=== PATIENT | female | born 1985 | race Caucasian/White ===

== ENCOUNTER 2019-04-01 14:39 | Emergency (ER) | payer OTHER, MEDICAID, SELFPAY ==
--- NOTE | 2019-04-01 15:05 | ED.BACK ---
HPI - Back Pain/Injury General Chief Complaint: Abdominal Pain Stated Complaint: back pain, can't breathe Time Seen by Provider: 04/01/19 14:45 Source: patient and family Mode of arrival: ambulatory Limitations: no limitations History of Present Illness HPI Narrative: 33-year-old female nonsmoker presents with severe right lower quadrant pain and radiation to the right back. She denies any provocation or palliation. She admits to nausea but denies vomiting. She denies dysuria, frequency or urgency. She states she is not . She denies any injury. She states it comes and goes with the mind of itself Complaint: back pain Onset (ago): hour(s) Duration: intermittent Similar Symptoms Previously: No Location: right flank Severity: severe Quality: aching Radiation: groin Relieving factors: none Exacerbating factors: none Related Data Home Medications Medication Instructions Recorded Confirmed norgestimate-ethinyl estradiol 1 tab PO DAILY 04/01/19 04/01/19 [[place]] Previous Rx's Medication Instructions Recorded hydrocodone-acetaminophen 1 tab PO Q4-6H PRN #10 tab 04/01/19 ketorolac 10 mg PO Q6H PRN #14 tab 04/01/19 ondansetron 4 mg PO TID-QID PRN #10 tab 04/01/19 tamsulosin [Flomax] 0.4 mg PO DAILY #10 cap 04/01/19 Allergies Allergy/AdvReac Type Severity Reaction Status Date / Time Penicillin Allergy Unknown SWELLING Uncoded 12/13/17 11:56 WHOLE BODY. Review of Systems Constitutional Denies chills, Denies fever(s), Denies lethargy and Denies weakness Eyes Denies change in vision, Denies eye discharge, Denies irritation and Denies loss of vision ENT Ears, Nose, Mouth, and Throat: Denies change in voice, Denies neck pain and Denies sore throat Cardiovascular Denies chest pain, Denies irregular heart rhythm, Denies lightheadedness, Denies palpitations, Denies dyspnea, Denies dyspnea on exertion and Denies orthopnea Respiratory Denies cough, Denies dyspnea, Denies dyspnea on exertion and Denies wheezing Gastrointestinal Gastrointestinal: Denies abdominal pain, Denies change in bowel habits, Denies diarrhea, Denies nausea and Denies vomiting Genitourinary Denies hematuria, Reports flank pain, Denies urinary incontinence and Denies urinary urgency Musculoskeletal Denies neck pain Integumentary/Breasts Denies pruritus, Denies erythema, Denies rash and Denies wounds Neurologic Denies confusion, Denies loss of vision and Denies weakness Psychiatric Denies anxiety, Denies confusion, Denies depression, Denies homicidal ideation and Denies suicidal ideation Endocrine Denies palpitations Hematologic/Lymphatic Denies easy bruising Allergic/Immunologic Denies wheezing PFSH Social History Smoking Status: Never smoker Social History Smoking Status: Never smoker Exam Narrative Exam Narrative: GENERAL: 33-year-old female appears stated age, clearly uncomfortable and massaging her right flank, rocking back and forth HEAD: Atraumatic. Normocephalic. No temporal or scalp tenderness. EYES: Pupils equal round and reactive. Extraocular motions intact. No scleral icterus. No injection or drainage. ENT: Nose without bleeding, purulent drainage or septal hematoma. Throat without erythema, tonsillar hypertrophy or exudate. Uvula midline. Airway patent. NECK: Trachea midline. No JVD or lymphadenopathy. Supple, nontender, no meningeal signs. CARDIOVASCULAR: Regular rate and rhythm without murmurs, gallops, or rubs. RESPIRATORY: Clear to auscultation. Breath sounds equal bilaterally. No wheezes, rales, or rhonchi. GASTROINTESTINAL: Abdomen soft, non-tender, nondistended. No hepato-splenomegaly, or palpable masses. No guarding. EXTREMITIES: No clubbing, cyanosis, or edema. No joint tenderness, effusion, or edema noted. BACK: Nontender without deformity or crepitance. No flank tenderness. NEURO: AOx3. SKIN: No rash or erythema. Initial Vital Signs Initial Vital Signs: Vital Signs Temperature 98.3 F 04/01/19 15:07 Pulse Rate 77 04/01/19 15:07 Respiratory Rate 16 04/01/19 15:07 Blood Pressure 117/69 04/01/19 15:07 Pulse Oximetry 99 04/01/19 15:07 Course Orders Ordered: Discontinued Medications Sodium Chloride (Normal Saline 0.9%) 1,000 mls @ 1,000 mls/hr IV BOLUS ONE Stop: 04/01/19 16:09 Last Infusion: 04/01/19 16:19 Dose: 0 mls/hr Admin: 04/01/19 15:20 Dose: 1,000 mls/hr Ketorolac Tromethamine (Toradol) 15 mg IV NOW ONE Stop: 04/01/19 15:11 Last Admin: 04/01/19 15:19 Dose: 15 mg Ondansetron HCl (Zofran) 4 mg IV Q4HR PRN PRN Reason: Nausea And Vomiting Vital Signs - 8 hr 04/01/19 15:07 04/01/19 16:01 Temperature 98.3 F Pulse Rate 77 104 H Respiratory Rate 16 18 Blood Pressure 117/69 Blood Pressure [Right Arm] 123/70 Pulse Oximetry 99 98 MDM - Back Pain/Injury Lab Data Result diagrams: 04/01/19 15:10 04/01/19 15:10 Lab Results 04/01/19 04/01/19 04/01/19 Range/Units 15:00 15:10 15:10 WBC 7.0 (4.5-11.0) X10^3/uL RBC 4.15 (4.0-5.2) X10^6/uL Hgb 13.1 (12.0-16.0) g/dL Hct 39.3 (36-46) % MCV 94.6 (80-100) fL MCH 31.7 (26-34) PG MCHC 33.5 (30-36) % RDW 12.4 (11.6-14.8) % Plt Count 238 (150-400) X10^3/uL Neut % (Auto) 56.5 (50-75) % Lymph % (Auto) 35.2 (25-40) % [place] % (Auto) 7.3 (3-14) % Eos % (Auto) 0.8 L (2-4) % Baso % (Auto) 0.2 (0-2) % Neut # (Auto) 3900 (0671-5761) /uL Lymph # (Auto) 2500 (5711-7355) /uL [place] # (Auto) 500 (0-900) /uL Eos # (Auto) 100 (0-450) /uL Baso # (Auto) 0 (0-100) /uL PT 10.4 (10.1-12.7) SECONDS INR 0.9 (0.9-1.3) APTT 29 (26.4-36.2) SECONDS Sodium (137-145) mmol/L Potassium (3.4-5.1) mmol/L Chloride (98-107) mmol/L Carbon Dioxide (22-32) mmol/L BUN (7-17) mg/dL Creatinine (0.52-1.04) mg/dL Estimated GFR (>60) mL/min BUN/Creatinine Ratio (6-22) Glucose (70-100) mg/dL Calcium (8.4-10.2) mg/dL Total Bilirubin (0.2-1.3) mg/dL AST (14-36) IU/L ALT (9-52) IU/L Alkaline Phosphatase (38-126) U/L Total Protein (6.3-8.2) g/dL Albumin (3.5-5.0) g/dL Globulin (1.7-4.1) g/dL Albumin/Globulin Ratio (1.0-2.8) Lipase (23-300) U/L Urine RBC 30-100/hpf H (0-5/HPF) Urine WBC None seen (0-5/HPF) Ur Squamous Epith Cells 1-5 /hpf (0-5/HPF) Urine Bacteria None seen (None) Urine Mucus 3+ H (Negative) Ur Culture Indicated? Cult not indicated 04/01/19 Range/Units 15:10 WBC (4.5-11.0) X10^3/uL RBC (4.0-5.2) X10^6/uL Hgb (12.0-16.0) g/dL Hct (36-46) % MCV (80-100) fL MCH (26-34) PG MCHC (30-36) % RDW (11.6-14.8) % Plt Count (150-400) X10^3/uL Neut % (Auto) (50-75) % Lymph % (Auto) (25-40) % [place] % (Auto) (3-14) % Eos % (Auto) (2-4) % Baso % (Auto) (0-2) % Neut # (Auto) (0880-1753) /uL Lymph # (Auto) (8905-6494) /uL [place] # (Auto) (0-900) /uL Eos # (Auto) (0-450) /uL Baso # (Auto) (0-100) /uL PT (10.1-12.7) SECONDS INR (0.9-1.3) APTT (26.4-36.2) SECONDS Sodium 139 (137-145) mmol/L Potassium 3.7 (3.4-5.1) mmol/L Chloride 107 (98-107) mmol/L Carbon Dioxide 23 (22-32) mmol/L BUN 11 (7-17) mg/dL Creatinine 0.70 (0.52-1.04) mg/dL Estimated GFR > 60.0 (>60) mL/min BUN/Creatinine Ratio 15.7 (6-22) Glucose 92 (70-100) mg/dL Calcium 8.8 (8.4-10.2) mg/dL Total Bilirubin 0.6 (0.2-1.3) mg/dL AST 21 (14-36) IU/L ALT 12 (9-52) IU/L Alkaline Phosphatase 88 (38-126) U/L Total Protein 7.3 (6.3-8.2) g/dL Albumin 4.0 (3.5-5.0) g/dL Globulin 3.3 (1.7-4.1) g/dL Albumin/Globulin Ratio 1.2 (1.0-2.8) Lipase 47 (23-300) U/L Urine RBC (0-5/HPF) Urine WBC (0-5/HPF) Ur Squamous Epith Cells (0-5/HPF) Urine Bacteria (None) Urine Mucus (Negative) Ur Culture Indicated? Point of Care Testing Test Results Negative Urine Dip Bedside Urine Glucose Negative Bedside Urine Bilirubin + 1 Bedside Urine Ketone - Negative Urine Specific [place] 1.030 Bedside Urine Occult Blood +++ Bedside Urine pH 5.5 Bedside Urine Protein + 30 Bedside Urine Urobilinogen - Negative Bedside Urine Nitrite - Negative Bedside Urine Leukocytes - Negative Esterase MDM Narrative Medical decision making narrative: Severe sudden-onset right flank pain with radiation to the groin in the setting of hematuria. No fever or chills, no injury. CT does not show any obvious stone but possibly a passed stone. Patient has tremendous improvement with the above-stated therapies. She is not septic. She is in full agreement with the plan for discharge and followup. She has been given return precautions, understands those precautions as evidenced by her ability to verbalize them back to me and has had questions answered to their apparent satisfaction. Discharge Plan Departure Patient Disposition: Home Clinical Impression: Calculus of kidney Hematuria Qualifiers: Hematuria type: unspecified type Qualified Code(s): R31.9 - Hematuria, unspecified Discharge Date/Time: 04/01/19 16:20 Interventions: ED Discharge Assessment Last Done: 04/01/19 16:19 Instructions: DI for Flank Pain Activity Restrictions/Additional Instructions: *You have been diagnosed with [right flank pain with blood in her urine, likely a passed kidney stone] *What to do: *Take medications as directed *Follow up with your primary care provider in 2-3 days, call for an appointment. Let them know you were seen in the Emergency Department and that we ask that you be seen in follow up *Return to ER if you should have any new, worsening or concerning symptoms Prescriptions: New hydrocodone-acetaminophen 5-325 mg tablet 1 tab PO Q4-6H PRN (Reason: pain) Qty: 10 RF: 0 ketorolac 10 mg tablet 10 mg PO Q6H PRN (Reason: pain) Qty: 14 RF: 0 ondansetron 4 mg tablet,disintegrating 4 mg PO TID-QID PRN (Reason: nausea and vomiting) Qty: 10 RF: 0 tamsulosin [Flomax] 0.4 mg capsule 0.4 mg PO DAILY Qty: 10 RF: 0 No Action norgestimate-ethinyl estradiol [[place]] 0.25-35 mg-mcg tablet 1 tab PO DAILY RF: 0 Referrals: Shirley Zaldivar MD [Primary Care Provider] -
[2019-04-01 15:07] VITALS: BP 117/69; PULSE 77; RESP 16; TEMP 36.8; O2SAT 99
--- NOTE | 2019-04-01 15:10 | DI.CT.S_ITS ---
PROCEDURE: CT KIDNEY URETER BLADDER (KUB) INDICATIONS: A 33-year-old woman with severe right groin pain and right flank pain with hematuria. TECHNIQUE: Noncontrast 5 mm thick sections acquired from the diaphragms to the symphysis. 5 mm thick coronal and sagittal reformats were then performed. For radiation dose reduction, the following was used: automated exposure control, adjustment of mA and/or kV according to patient size. COMPARISON: None. FINDINGS: Image quality: Excellent. Lung bases: Lung bases are clear. Heart size is normal. Urinary system: Both kidneys are normal in size. No kidney stones. No hydronephrosis or perinephric fat stranding. Both ureters appear non-dilated throughout their expected courses. Bladder wall thickness is normal; no calcified bladder stones. Other solid organs: Liver is normal in size. Gallbladder is. Pancreas is normal in contours. Spleen is normal in size. No adrenal nodules. Peritoneum and bowel: Unenhanced bowel loops demonstrate normal wall thickness and caliber. Normal appendix No free fluid or air. Nodes and vessels: No retroperitoneal or mesenteric adenopathy by size criteria. Aorta and inferior vena cava are normal in caliber. Abdominal wall: No ventral hernias. Pelvis: No free pelvic fluid. No inguinal hernias or adenopathy. Uterus is normal. Bilateral adnexal cysts are most likely ovarian in origin. On the right side, the cyst measures 1.7 cm. On the right side, the cyst measures 2.1 cm. No pathological free fluid. Bones: No suspicious bony lesions. No vertebral body compression fractures. IMPRESSION: 1. No urinary stones or hydronephrosis. 2. Normal appendix. 3. A cause for right flank/groin pain and hematuria are not identified. 4. Bilateral ovarian cysts, probably dominant ovarian follicles. Dictated by: Miladis Tabares M.D. on 04/01/2019 at 15:52 Approved by: Miladis Tabares M.D. on 04/01/2019 at 16:05
--- NOTE | 2019-04-01 15:18 | ED_ITS ---
HPI - Back Pain/Injury General Chief Complaint: Abdominal Pain Stated Complaint: back pain, can't breathe Time Seen by Provider: 04/01/19 14:45 Source: patient and family Mode of arrival: ambulatory Limitations: no limitations History of Present Illness HPI Narrative: 33-year-old female nonsmoker presents with severe right lower quadrant pain and radiation to the right back. She denies any provocation or palliation. She admits to nausea but denies vomiting. She denies dysuria, frequency or urgency. She states she is not . She denies any injury. She states it comes and goes with the mind of itself Complaint: back pain Onset (ago): hour(s) Duration: intermittent Similar Symptoms Previously: No Location: right flank Severity: severe Quality: aching Radiation: groin Relieving factors: none Exacerbating factors: none Related Data Home Medications Medication Instructions Recorded Confirmed norgestimate-ethinyl estradiol 1 tab PO DAILY 04/01/19 04/01/19 [[place]] Previous Rx's Medication Instructions Recorded hydrocodone-acetaminophen 1 tab PO Q4-6H PRN #10 tab 04/01/19 ketorolac 10 mg PO Q6H PRN #14 tab 04/01/19 ondansetron 4 mg PO TID-QID PRN #10 tab 04/01/19 tamsulosin [Flomax] 0.4 mg PO DAILY #10 cap 04/01/19 Allergies Allergy/AdvReac Type Severity Reaction Status Date / Time Penicillin Allergy Unknown SWELLING Uncoded 12/13/17 11:56 WHOLE BODY. Review of Systems Constitutional Denies chills, Denies fever(s), Denies lethargy and Denies weakness Eyes Denies change in vision, Denies eye discharge, Denies irritation and Denies loss of vision ENT Ears, Nose, Mouth, and Throat: Denies change in voice, Denies neck pain and Denies sore throat Cardiovascular Denies chest pain, Denies irregular heart rhythm, Denies lightheadedness, Denies palpitations, Denies dyspnea, Denies dyspnea on exertion and Denies orthopnea Respiratory Denies cough, Denies dyspnea, Denies dyspnea on exertion and Denies wheezing Gastrointestinal Gastrointestinal: Denies abdominal pain, Denies change in bowel habits, Denies diarrhea, Denies nausea and Denies vomiting Genitourinary Denies hematuria, Reports flank pain, Denies urinary incontinence and Denies urinary urgency Musculoskeletal Denies neck pain Integumentary/Breasts Denies pruritus, Denies erythema, Denies rash and Denies wounds Neurologic Denies confusion, Denies loss of vision and Denies weakness Psychiatric Denies anxiety, Denies confusion, Denies depression, Denies homicidal ideation and Denies suicidal ideation Endocrine Denies palpitations Hematologic/Lymphatic Denies easy bruising Allergic/Immunologic Denies wheezing PFSH Social History Smoking Status: Never smoker Social History Smoking Status: Never smoker Exam Narrative Exam Narrative: GENERAL: 33-year-old female appears stated age, clearly uncomfortable and massaging her right flank, rocking back and forth HEAD: Atraumatic. Normocephalic. No temporal or scalp tenderness. EYES: Pupils equal round and reactive. Extraocular motions intact. No scleral icterus. No injection or drainage. ENT: Nose without bleeding, purulent drainage or septal hematoma. Throat without erythema, tonsillar hypertrophy or exudate. Uvula midline. Airway patent. NECK: Trachea midline. No JVD or lymphadenopathy. Supple, nontender, no meningeal signs. CARDIOVASCULAR: Regular rate and rhythm without murmurs, gallops, or rubs. RESPIRATORY: Clear to auscultation. Breath sounds equal bilaterally. No wheezes, rales, or rhonchi. GASTROINTESTINAL: Abdomen soft, non-tender, nondistended. No hepato- splenomegaly, or palpable masses. No guarding. EXTREMITIES: No clubbing, cyanosis, or edema. No joint tenderness, effusion, or edema noted. BACK: Nontender without deformity or crepitance. No flank tenderness. NEURO: AOx3. SKIN: No rash or erythema. Initial Vital Signs Initial Vital Signs: Vital Signs Temperature 98.3 F 04/01/19 15:07 Pulse Rate 77 04/01/19 15:07 Respiratory Rate 16 04/01/19 15:07 Blood Pressure 117/69 04/01/19 15:07 Pulse Oximetry 99 04/01/19 15:07 Course Orders Ordered: Discontinued Medications Sodium Chloride (Normal Saline 0.9%) 1,000 mls @ 1,000 mls/hr IV BOLUS ONE Stop: 04/01/19 16:09 Last Infusion: 04/01/19 16:19 Dose: 0 mls/hr Admin: 04/01/19 15:20 Dose: 1,000 mls/hr Ketorolac Tromethamine (Toradol) 15 mg IV NOW ONE Stop: 04/01/19 15:11 Last Admin: 04/01/19 15:19 Dose: 15 mg Ondansetron HCl (Zofran) 4 mg IV Q4HR PRN PRN Reason: Nausea And Vomiting Vital Signs - 8 hr 04/01/19 15:07 04/01/19 16:01 Temperature 98.3 F Pulse Rate 77 104 H Respiratory Rate 16 18 Blood Pressure 117/69 Blood Pressure [Right Arm] 123/70 Pulse Oximetry 99 98 MDM - Back Pain/Injury Lab Data Result diagrams: 04/01/19 15:10 04/01/19 15:10 Lab Results 04/01/19 04/01/19 04/01/19 Range/Units 15:00 15:10 15:10 WBC 7.0 (4.5-11.0) X10^3/uL RBC 4.15 (4.0-5.2) X10^6/uL Hgb 13.1 (12.0-16.0) g/dL Hct 39.3 (36-46) % MCV 94.6 (80-100) fL MCH 31.7 (26-34) PG MCHC 33.5 (30-36) % RDW 12.4 (11.6-14.8) % Plt Count 238 (150-400) X10^3/uL Neut % (Auto) 56.5 (50-75) % Lymph % (Auto) 35.2 (25-40) % [place] % (Auto) 7.3 (3-14) % Eos % (Auto) 0.8 L (2-4) % Baso % (Auto) 0.2 (0-2) % Neut # (Auto) 3900 (2949-7749) /uL Lymph # (Auto) 2500 (0232-8838) /uL [place] # (Auto) 500 (0-900) /uL Eos # (Auto) 100 (0-450) /uL Baso # (Auto) 0 (0-100) /uL PT 10.4 (10.1-12.7) SECONDS INR 0.9 (0.9-1.3) APTT 29 (26.4-36.2) SECONDS Sodium (137-145) mmol/L Potassium (3.4-5.1) mmol/L Chloride (98-107) mmol/L Carbon Dioxide (22-32) mmol/L BUN (7-17) mg/dL Creatinine (0.52-1.04) mg/dL Estimated GFR (>60) mL/min BUN/Creatinine Ratio (6-22) Glucose (70-100) mg/dL Calcium (8.4-10.2) mg/dL Total Bilirubin (0.2-1.3) mg/dL AST (14-36) IU/L ALT (9-52) IU/L Alkaline Phosphatase (38-126) U/L Total Protein (6.3-8.2) g/dL Albumin (3.5-5.0) g/dL Globulin (1.7-4.1) g/dL Albumin/Globulin Ratio (1.0-2.8) Lipase (23-300) U/L Urine RBC 30-100/hpf H (0-5/HPF) Urine WBC None seen (0-5/HPF) Ur Squamous Epith Cells 1-5 /hpf (0-5/HPF) Urine Bacteria None seen (None) Urine Mucus 3+ H (Negative) Ur Culture Indicated? Cult not indicated 04/01/19 Range/Units 15:10 WBC (4.5-11.0) X10^3/uL RBC (4.0-5.2) X10^6/uL Hgb (12.0-16.0) g/dL Hct (36-46) % MCV (80-100) fL MCH (26-34) PG MCHC (30-36) % RDW (11.6-14.8) % Plt Count (150-400) X10^3/uL Neut % (Auto) (50-75) % Lymph % (Auto) (25-40) % [place] % (Auto) (3-14) % Eos % (Auto) (2-4) % Baso % (Auto) (0-2) % Neut # (Auto) (3630-6043) /uL Lymph # (Auto) (8978-1287) /uL [place] # (Auto) (0-900) /uL Eos # (Auto) (0-450) /uL Baso # (Auto) (0-100) /uL PT (10.1-12.7) SECONDS INR (0.9-1.3) APTT (26.4-36.2) SECONDS Sodium 139 (137-145) mmol/L Potassium 3.7 (3.4-5.1) mmol/L Chloride 107 (98-107) mmol/L Carbon Dioxide 23 (22-32) mmol/L BUN 11 (7-17) mg/dL Creatinine 0.70 (0.52-1.04) mg/dL Estimated GFR > 60.0 (>60) mL/min BUN/Creatinine Ratio 15.7 (6-22) Glucose 92 (70-100) mg/dL Calcium 8.8 (8.4-10.2) mg/dL Total Bilirubin 0.6 (0.2-1.3) mg/dL AST 21 (14-36) IU/L ALT 12 (9-52) IU/L Alkaline Phosphatase 88 (38-126) U/L Total Protein 7.3 (6.3-8.2) g/dL Albumin 4.0 (3.5-5.0) g/dL Globulin 3.3 (1.7-4.1) g/dL Albumin/Globulin Ratio 1.2 (1.0-2.8) Lipase 47 (23-300) U/L Urine RBC (0-5/HPF) Urine WBC (0-5/HPF) Ur Squamous Epith Cells (0-5/HPF) Urine Bacteria (None) Urine Mucus (Negative) Ur Culture Indicated? Point of Care Testing Test Results Negative Urine Dip Bedside Urine Glucose Negative Bedside Urine Bilirubin + 1 Bedside Urine Ketone - Negative Urine Specific [place] 1.030 Bedside Urine Occult Blood +++ Bedside Urine pH 5.5 Bedside Urine Protein + 30 Bedside Urine Urobilinogen - Negative Bedside Urine Nitrite - Negative Bedside Urine Leukocytes - Negative Esterase MDM Narrative Medical decision making narrative: Severe sudden-onset right flank pain with radiation to the groin in the setting of hematuria. No fever or chills, no injury. CT does not show any obvious stone but possibly a passed stone. Patient has tremendous improvement with the above-stated therapies. She is not septic. She is in full agreement with the plan for discharge and followup. She has been given return precautions, understands those precautions as evidenced by her ability to verbalize them back to me and has had questions answered to their apparent satisfaction. Discharge Plan Departure Patient Disposition: Home Clinical Impression: Calculus of kidney Hematuria Qualifiers: Hematuria type: unspecified type Qualified Code(s): R31.9 - Hematuria, unspecified Discharge Date/Time: 04/01/19 16:20 Interventions: ED Discharge Assessment Last Done: 04/01/19 16:19 Instructions: DI for Flank Pain Activity Restrictions/Additional Instructions: *You have been diagnosed with [right flank pain with blood in her urine, likely a passed kidney stone] *What to do: *Take medications as directed *Follow up with your primary care provider in 2-3 days, call for an appointment. Let them know you were seen in the Emergency Department and that we ask that you be seen in follow up *Return to ER if you should have any new, worsening or concerning symptoms Prescriptions: New hydrocodone-acetaminophen 5-325 mg tablet 1 tab PO Q4-6H PRN (Reason: pain) Qty: 10 RF: 0 ketorolac 10 mg tablet 10 mg PO Q6H PRN (Reason: pain) Qty: 14 RF: 0 ondansetron 4 mg tablet,disintegrating 4 mg PO TID-QID PRN (Reason: nausea and vomiting) Qty: 10 RF: 0 tamsulosin [Flomax] 0.4 mg capsule 0.4 mg PO DAILY Qty: 10 RF: 0 No Action norgestimate-ethinyl estradiol [[place]-Liny[place]] 0.25-35 mg-mcg tablet 1 tab PO DAILY RF: 0 Referrals: Shirley Zaldivar MD [Primary Care Provider] -
[2019-04-01 15:19] LABS: Add Manual Diff / Slide Review NO; Basophils Absolute Auto 0 /uL (0-100); Basophils Percent Auto 0.2 % (0-2); Eosinophils Absolute Auto 100 /uL (0-450); Eosinophils Percent Auto 0.8 % (2-4); Hematocrit 39.3 % (36-46); Hemoglobin 13.1 g/dL (12.0-16.0); Lymphocytes Absolute Auto 2500 /uL (1100-4500); Lymphocytes Percent Auto 35.2 % (25-40); Mean Corpuscular HGB Conc 33.5 % (30-36); Mean Corpuscular Hemoglobin 31.7 PG (26-34); Mean Corpuscular Volume 94.6 fL (80-100); Monocytes Absolute Auto 500 /uL (0-900); Monocytes Percent Auto 7.3 % (3-14); Neutrophils Absolute Auto 3900 /uL (1500-7000); Neutrophils Percent Auto 56.5 % (50-75); Platelet Count 238 X10^3/uL (150-400); Red Blood Cell Count 4.15 X10^6/uL (4.0-5.2); Red Cell Distribution Width 12.4 % (11.6-14.8)
[2019-04-01 15:19] LABS: Bacteria Urine None Seen; WBC Urine None Seen (0-5/HPF)
[2019-04-01] MEDS: KETOROLAC 60 MG/2 ML VIAL 15 MG IV (15:19)
[2019-04-01] MEDS: SODIUM CHLORIDE 0.9% 1,000 ML 1000 ML IV (15:20)
[2019-04-01 15:27] LABS: INR 0.9 (0.9-1.3); Prothrombin Time 10.4 SECONDS (10.1-12.7)
[2019-04-01 15:30] LABS: PTT Partial Thromboplastin Tim 29 SECONDS (26.4-36.2)
[2019-04-01 15:31] LABS: Alanine Aminotransferase 12 IU/L (9-52); Albumin Globulin Ratio 1.2 (1.0-2.8); Alkaline Phosphatase 88 U/L (38-126); Aspartate Aminotransferase 21 IU/L (14-36); BUN Creatinine Ratio 15.7 (6-22); Bilirubin Total 0.6 mg/dL (0.2-1.3); Blood Urea Nitrogen 11 mg/dL (7-17); Calcium 8.8 mg/dL (8.4-10.2); Carbon Dioxide 23 mmol/L (22-32); Chloride 107 mmol/L (98-107); Estimated Glomerular Filt Rate > 60.0 mL/min (>60); Globulin 3.3 g/dL (1.7-4.1); Glucose 92 mg/dL (70-100); HEMOLYSIS < 15 (0-50); Lipase 47 U/L (23-300); Potassium 3.7 mmol/L (3.4-5.1); Sodium 139 mmol/L (137-145); Total Protein 7.3 g/dL (6.3-8.2)
[2019-04-01 15:53] LABS: RBC Urine 30-100/HPF (0-5/HPF)
[2019-04-01 15:54] LABS: Culture Indicated Urine Cult Not Indicated; Mucus Urine 3+ (Negative); Squamous Epithelial Cell Urine 1-5 /HPF (0-5/HPF)
[2019-04-01 16:01] VITALS: BP 123/70; PULSE 104; RESP 18; O2SAT 98
== END 2019-04-01 16:20 | disposition home or self-care (01) ==
PROVIDERS: Emergency Provider Emergency Medicine; PCP Family Medicine
DX: N20.0 Calculus of kidney (principal); R31.9 Hematuria, unspecified
CPT/HCPCS: 74176; 80053; 81003; 81015; 81025; 83690; 85025; 85610; 85730; 96361; 96374; 99283; 99284; J1885

== ENCOUNTER → 2019-11-05 16:33 | Outpatient (CLI) | payer OTHER, MEDICAID, SELFPAY ==
--- NOTE | 2019-11-05 | DI.RAD.S_ITS ---
PROCEDURE: XR ANKLE LT MIN 3V INDICATIONS: Left Ankle Pain TECHNIQUE: 3 views of the ankle were acquired. COMPARISON: [facility], , ANKLE 3 VIEWS RIGHT, 03/08/2017, 16:27. FINDINGS: Bones: No fractures or dislocations. Ankle mortise is normally aligned. No suspicious bony lesions. Soft tissues: No tibiotalar joint effusion. Achilles tendon appears normal. IMPRESSION: Negative examination as above. If the patient's pain or other symptoms persist, consider further evaluation with MRI Dictated by: Yuriy Gong M.D. on 11/05/2019 at 18:32 Approved by: Yuriy Gong M.D. on 11/05/2019 at 18:33
== END ==
PROVIDERS: PCP Family Medicine; Referring Provider Family Medicine; Visit Provider Family Medicine
DX: M25.572 Pain in left ankle and joints of left foot (principal)
CPT/HCPCS: 73610

== ENCOUNTER 2020-03-03 16:57 | Emergency (ER) | payer OTHER, MEDICAID, SELFPAY ==
[2020-03-03 16:59] VITALS: BP 144/68; PULSE 88; RESP 16; TEMP 36.7; O2SAT 100; BMI 24.7
--- NOTE | 2020-03-03 17:08 | DI.RAD.S_ITS ---
PROCEDURE: XR FINGER RT MIN 2V INDICATIONS: foreign body TECHNIQUE: AP hand, 2 views of the 4th finger(s) acquired. COMPARISON: None. FINDINGS: Bones: No fractures or dislocations. No suspicious bony lesions. Soft tissues: No suspicious soft tissue calcifications. Radiolucent foreign body within the 4th digit palmar aspect of the tuft. This protrudes from the skin. This does not protrude into the bone. IMPRESSION: 1. Radiolucent foreign body within the 4th digit palmar tuft. 2. No fracture or dislocation. Dictated by: Louie Red M.D. on 03/03/2020 at 17:48 Approved by: Louie Red M.D. on 03/03/2020 at 17:50
--- NOTE | 2020-03-03 17:14 | ED_ITS ---
HPI - Wound/Laceration <BURAK Shrestha - Last Filed: 03/03/20 20:23> General Chief Complaint: Wound/Laceration Stated Complaint: Large splinter in finger Time Seen by Provider: 03/03/20 17:03 Source: patient Mode of arrival: Ambulatory Limitations: no limitations History of Present Illness HPI narrative: The patient is a 34-year-old female nonsmoker with history of right ankle injury presents with a chief complaint of a large splinter in her finger. 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 She states she was cleaning and dirty floor and had a huge splinter enter the 4th digit of her right hand. She is not sure when her last tetanus was. Range of motion, tried to pull out the splinter from the bottom and broke off inside of her finger. Related Data Home Medications Medication Instructions Recorded Confirmed norgestimate-ethinyl estradiol 1 tab PO DAILY 04/01/19 04/01/19 [[place]] Previous Rx's Medication Instructions Recorded hydrocodone-acetaminophen 1 tab PO Q4-6H PRN #10 tab 04/01/19 ketorolac 10 mg PO Q6H PRN #14 tab 04/01/19 ondansetron 4 mg PO TID-QID PRN #10 tab 04/01/19 tamsulosin [Flomax] 0.4 mg PO DAILY #10 cap 04/01/19 cephalexin 500 mg PO TID 7 Days #21 cap 03/03/20 Allergies Allergy/AdvReac Type Severity Reaction Status Date / Time Penicillin Allergy Unknown SWELLING Uncoded 03/03/20 17:01 WHOLE BODY. Review of Systems <BURAK Shrestha - Last Filed: 03/03/20 20:23> Review of Systems Narrative: GENERAL: Denies chills, fatigue, malaise, fever, sweats. HEENT: Denies sinus pain, ear pain, sore throat, difficulty swallowing, dizziness. RESPIRATORY: Denies dyspnea, cough, wheezing, hemoptysis, sputum. CARDIOVASCULAR: Denies chest pain, palpitations, orthopnea, edema, GASTROINTESTINAL: Denies nausea, vomiting, abdominal pain, diarrhea, constipation, melena. : Denies dysuria, frequency, incontinence, hematuria, urinary retention. MUSCULOSKELETAL: See HPI SKIN: See HPI NEUROLOGIC: Denies weakness, headache, numbness, change in speech, confusion, seizures, incoordination. PSYCHIATRIC: No concerning psychosocial issues. 12 point review of systems is negative except for those stated above Patient History <BURAK Shrestha - Last Filed: 03/03/20 20:23> Social History Smoking Status: Never smoker Smoking Status: Never smoker alcohol intake frequency: a few times a month Substance Use Type: marijuana Exam <BURAK Shrestha - Last Filed: 03/03/20 20:23> Narrative Exam Narrative: GENERAL: This is a well-nourished, well-developed patient, no acute distress HEAD: Atraumatic. Normocephalic. No temporal or scalp tenderness. EYES: Pupils equal round and reactive. Extraocular motions intact. No scleral icterus. No injection or drainage. ENT: Nose without bleeding, purulent drainage or septal hematoma. Airway patent. NECK: Trachea midline. No JVD or lymphadenopathy. Supple, nontender, no meningeal signs. CARDIOVASCULAR: Regular rate and rhythm RESPIRATORY: No cough. No increased respiratory effort. No accessory muscle use EXTREMITIES: Right hand, 4th digit with large splinter extending through palmar aspect of tuft, appears to be splinter, not visible on distal aspect, extending approximately 1.5 cm beyond finger tip. BACK: Nontender without deformity or crepitance. No flank tenderness. NEURO: AOx3. SKIN: See extremity exam Initial Vital Signs Initial Vital Signs: Vital Signs Temperature 98.1 F 03/03/20 16:59 Pulse Rate 88 03/03/20 16:59 Respiratory Rate 16 03/03/20 16:59 Blood Pressure 144/68 H 03/03/20 16:59 Pulse Oximetry 100 03/03/20 16:59 <Preethi Balderrama DO - Last Filed: 03/04/20 13:26> Initial Vital Signs Initial Vital Signs: Vital Signs Temperature 98.1 F 03/03/20 16:59 Pulse Rate 88 03/03/20 16:59 Respiratory Rate 16 03/03/20 16:59 Blood Pressure 144/68 H 03/03/20 16:59 Pulse Oximetry 100 03/03/20 16:59 Procedures <BURAK Shrestha - Last Filed: 03/03/20 20:23> Foreign Body OTHER Time Out Performed: yes Site: hand (Fourth digit, right hand) Description of foreign body: other (3 cm splinter) Technique: removal with forceps Confirmed by:: direct visualization Complications: none Post-procedure exam: awake, alert Nerve Block Nerve Block 1: Local Anesthetic: lidocaine 1% and with bicarb Amount of anesthesia used (mL): 5 Side: right Nerve Blocks: digital (Fourth digit ) Procedure Successful: Yes Patient Tolerated Procedure: Well Complications: none Course <BURAK Shrestha - Last Filed: 03/03/20 20:23> Orders Ordered: Discontinued Medications Diphtheria/Tetanus/Acell Pertussis (Adacel) 0.5 ml IM .ONCE ONE Stop: 03/03/20 17:09 Last Admin: 03/03/20 17:29 Dose: 0.5 ml Documented by: BERTA Lidocaine/Sodium Bicarbonate (Buffered Lidocaine 10 Ml Syr) 10 ml INJ NOW ONE Stop: 03/03/20 17:09 Last Admin: 03/03/20 17:29 Dose: 10 ml Documented by: BERTA Vital Signs Vital signs: Vital Signs - 8 hr 03/03/20 16:59 03/03/20 19:27 Temperature 98.1 F Pulse Rate 88 78 Respiratory Rate 16 16 Blood Pressure 144/68 H 110/70 Pulse Oximetry 100 100 <Preethi Balderrama DO - Last Filed: 03/04/20 13:26> Orders Ordered: Discontinued Medications Diphtheria/Tetanus/Acell Pertussis (Adacel) 0.5 ml IM .ONCE ONE Stop: 03/03/20 17:09 Last Admin: 03/03/20 17:29 Dose: 0.5 ml Documented by: BERTA Lidocaine/Sodium Bicarbonate (Buffered Lidocaine 10 Ml Syr) 10 ml INJ NOW ONE Stop: 03/03/20 17:09 Last Admin: 03/03/20 17:29 Dose: 10 ml Documented by: BERTA Vital Signs Vital signs: Vital Signs - 8 hr 03/03/20 16:59 03/03/20 19:27 Temperature 98.1 F Pulse Rate 88 78 Respiratory Rate 16 16 Blood Pressure 144/68 H 110/70 Pulse Oximetry 100 100 MDM - Wound/Laceration <BURAK Shrestha - Last Filed: 03/03/20 20:23> Imaging Data Extremity x-ray #1: Radiologist's Impression: [address] [place] [id number] XRay Report Signed Patient: Coleen Garza [facility]#: [id number] : 1985Acct:[id number] Age/Sex: 34 / FDate of Service: 03/03/20 Loc: ED Accession Number: [id number] Procedure: XR finger RT min 2V Ordering Provider: Padmini Allen-ZHENG PROCEDURE: XR FINGER RT MIN 2V INDICATIONS: foreign body TECHNIQUE: AP hand, 2 views of the 4th finger(s) acquired. COMPARISON: None. FINDINGS: Bones: No fractures or dislocations. No suspicious bony lesions. Soft tissues: No suspicious soft tissue calcifications. Radiolucent foreign body within the 4th digit palmar aspect of the tuft. This protrudes from the skin. This does not protrude into the bone. IMPRESSION: 1. Radiolucent foreign body within the 4th digit palmar tuft. 2. No fracture or dislocation. Dictated by: Louie Red M.D. on 03/03/2020 at 17:48 Approved by: Louie Red M.D. on 03/03/2020 at 17:50 [facility] Narrative Medical decision making narrative: The patient is a 34-year-old female who presents with a chief complaint of a large splinter in her hand. X-ray indicates no bony involvement. Her tetanus is updated, splinter was removed and tolerated well. Cleansed copiously with Hibiclens. Given the depth of the wound, contamination of surface that she was cleaning, we did place her on Keflex. I discussed at length taking a probiotic, monitoring for signs and symptoms of infection. The wound is copiously cleansed throughout her stay in the emergency department by soaking in Hibiclens. I did offer repeat x-ray, patient declined at this point. Encourage PCP follow-up in the next few days. Patient has no questions or concerns upon discharge and states understanding return precautions as well as follow-up care. She expresses great appreciation for her stay in the emergency department today. Discharge Plan Departure Patient Disposition: Home Clinical Impression: Splinter Discharge Date/Time: 03/03/20 19:28 Instructions: DI for Puncture Wound, DI for Splinter Removal Activity Restrictions/Additional Instructions: Thank you for trusting us with your care today. Today removed a large splinter from her finger. Given the depth, the dirt exposure etcetera we have placed you on antibiotics. I sent a prescription of cephalexin to [facility]. Please take this 3 times a day. Please take with probiotic or yogurt. Please monitor for signs of worsening infection such as increased redness, drainage etcetera Please follow-up with primary care provider Please come back to emergency department for any acute concerns Prescriptions: New cephalexin 500 mg capsule 500 mg PO TID 7 Days Qty: 21 RF: 0 No Action norgestimate-ethinyl estradiol [[place]] 0.25-35 mg-mcg tablet 1 tab PO DAILY RF: 0 hydrocodone-acetaminophen 5-325 mg tablet 1 tab PO Q4-6H PRN (Reason: pain) Qty: 10 RF: 0 ketorolac 10 mg tablet 10 mg PO Q6H PRN (Reason: pain) Qty: 14 RF: 0 ondansetron 4 mg tablet,disintegrating 4 mg PO TID-QID PRN (Reason: nausea and vomiting) Qty: 10 RF: 0 tamsulosin [Flomax] 0.4 mg capsule 0.4 mg PO DAILY Qty: 10 RF: 0 Referrals: Shirley Zaldivar MD [Primary Care Provider] - <Preethi Balderrama DO - Last Filed: 03/04/20 13:26> [facility] ED Attending Adamature Attestation: I was immediately available in the department for consultation. Documentation has been reviewed. I agree with assessment and plan.
[2020-03-03] MEDS: LIDO 1%/SOD BICARB 8.4% (10ML) 10 ML SYRINGE INJ (17:29)
[2020-03-03] MEDS: TET,DIPH,PERTUSS(ACELL),VAC/PF 0.5 ML SYRINGE IM (17:29)
[2020-03-03 19:27] VITALS: BP 110/70; PULSE 78; RESP 16; O2SAT 100
== END 2020-03-03 19:28 | disposition home or self-care (01) ==
PROVIDERS: Emergency Provider Nurse Practitioner Family; PCP Family Medicine
DX: S60.454A Superficial foreign body of right ring finger, initial encounter (principal); Z23 Encounter for immunization
CPT/HCPCS: 10120; 64450; 73140; 90471; 99283; 90715

== ENCOUNTER 2020-10-16 12:40 | Emergency (ER) | payer OTHER, MEDICAID, SELFPAY ==
[2020-10-16 12:42] VITALS: BP 141/92; PULSE 93; RESP 14; TEMP 37.1; O2SAT 98; BMI 26.5
--- NOTE | 2020-10-16 12:51 | ED_ITS ---
HPI - Abdominal Pain <GORDON Cabezas - Last Filed: 10/16/20 15:43> General Chief Complaint: Abdominal Pain Stated Complaint: Snowboard wreck week ago, lwr left abdominal pain Time Seen by Provider: 10/16/20 12:42 Source: patient Mode of arrival: Ambulatory Limitations: no limitations History of Present Illness HPI narrative: 34yo female presents to the ED for LLQ abdominal pain for the past week after a fall. Patient states she was snowboarding and fell and landed on her back. She immediately felt left lower quadrant pain, she was able to get up and continue snowboarding that day with some soreness. She states the soreness has came and went for the past week. She was snowboarding again few days ago and noticed it was getting worse. This morning she woke up from a startle and noticed a sharp stabbing lower left quadrant pain that is worse. Patient denies any fevers, chills, nausea, vomiting, chest pain, shortness of breath, blood in urine, or any other concerns. Related Data Home Medications Medication Instructions Recorded Confirmed norgestimate-ethinyl estradiol 1 tab PO DAILY 04/01/19 04/01/19 [[place]] Allergies Allergy/AdvReac Type Severity Reaction Status Date / Time Penicillins Allergy Verified 10/16/20 12:48 Review of Systems <GORDON Cabezas - Last Filed: 10/16/20 15:43> Review of Systems Narrative: REVIEW OF SYSTEMS: GENERAL: Denies fever. HENT: No head trauma. CARDIOVASCULAR: No chest pain. RESPIRATORY: No shortness of breath or cough. GASTROINTESTINAL: Complains of LLQ abdominal pain, see HPI GENITOURINARY: No flank pain. MUSCULOSKELETAL: No pain, weakness, or trauma. INTEGUMENTARY: No rash, lesions, or pruritus. NEURO: No numbness or tingling Patient History <GORDON Cabezas - Last Filed: 10/16/20 15:43> Medical History No significant medical problems Social History Smoking Status: Never smoker Smoking Status: Never smoker alcohol intake frequency: a few times a month Substance Use Type: marijuana Exam <GORDON Cabezas - Last Filed: 10/16/20 15:43> Initial Vital Signs Initial Vital Signs: Vital Signs Temperature 98.7 F 10/16/20 12:42 Pulse Rate 93 H 10/16/20 12:42 Respiratory Rate 14 10/16/20 12:42 Blood Pressure 141/92 H 10/16/20 12:42 Pulse Oximetry 98 10/16/20 12:42 PHYSICAL EXAMINATION: GENERAL: Awake and alert. HENT: Normocephalic, atraumatic. EYES: Conjunctiva pink, sclera white, no periorbital swelling. CARDIOVASCULAR: S1 and S2 sounds normal. Regular rate and rhythm, no murmurs, clicks, or bruits. No pedal edema. RESPIRATORY: Normal respiratory rate, trachea midline, airway patent. No stridor, nasal flaring or accessory muscle use. Lungs are clear in all quinn without wheeze, rhonchi, or crackles. GASTROINTESTINAL: Bowel sounds normoactive. Abdomen is soft, left lower quadrant tenderness. No organomegaly, no palpable masses. GENITALURINARY: Left CVA tenderness with palpable. MUSCULOSKELETAL: Normal gait and coordination. Equal tone and mass bilaterally. EXTREMITIES: CMS intact, no pedal edema. SKIN: Warm, dry, soft, appropriate color for ethnicity. No lesions, rashes, or wounds to visualized areas. NEURO: Alert and Oriented X 3. Good coordination. No ataxia, or sensory deficits, or cognitive issues. PSYCH: Appropriate affect and mood. <Edilson Lopez DO - Last Filed: 10/17/20 07:11> Initial Vital Signs Initial Vital Signs: Vital Signs Temperature 98.7 F 10/16/20 12:42 Pulse Rate 93 H 10/16/20 12:42 Respiratory Rate 14 10/16/20 12:42 Blood Pressure 141/92 H 10/16/20 12:42 Pulse Oximetry 98 10/16/20 12:42 Course <GORDON Cabezas - Last Filed: 10/16/20 15:43> Course Course Narrative: Patient reported Toradol improved pain. Orders Ordered: Discontinued Medications Sodium Chloride (Normal Saline 0.9%) 1,000 mls @ 1,000 mls/hr IV BOLUS ONE Stop: 10/16/20 13:50 Last Infusion: 10/16/20 14:25 Dose: 0 mls/hr Documented by: Admin: 10/16/20 13:09 Dose: 1,000 mls/hr Documented by: FRANNY Ketorolac Tromethamine (Ketorolac 60 Mg/2 Ml Vial) 30 mg IV NOW ONE Stop: 10/16/20 12:52 Last Admin: 10/16/20 13:08 Dose: 30 mg Documented by: FRANNY Vital Signs Vital signs: Vital Signs - 8 hr 10/16/20 12:42 10/16/20 14:13 Temperature 98.7 F Pulse Rate 93 H 73 Respiratory Rate 14 Blood Pressure 141/92 H 107/56 L Pulse Oximetry 98 98 <Edilson Lopez DO - Last Filed: 10/17/20 07:11> Orders Ordered: Discontinued Medications Sodium Chloride (Normal Saline 0.9%) 1,000 mls @ 1,000 mls/hr IV BOLUS ONE Stop: 10/16/20 13:50 Last Infusion: 10/16/20 14:25 Dose: 0 mls/hr Documented by: Admin: 10/16/20 13:09 Dose: 1,000 mls/hr Documented by: FRANNY Ketorolac Tromethamine (Ketorolac 60 Mg/2 Ml Vial) 30 mg IV NOW ONE Stop: 10/16/20 12:52 Last Admin: 10/16/20 13:08 Dose: 30 mg Documented by: FRANNY Vital Signs Vital signs: Vital Signs - 8 hr 10/16/20 12:42 10/16/20 14:13 Temperature 98.7 F Pulse Rate 93 H 73 Respiratory Rate 14 Blood Pressure 141/92 H 107/56 L Pulse Oximetry 98 98 MDM - Abdominal Pain <GORDON Cabezas - Last Filed: 10/16/20 15:43> Medical Records Attestation: I reviewed the patient's medical records. Lab Data Attestation: I reviewed the patient's lab results. Result diagrams: 10/16/20 13:00 10/16/20 13:00 Labs: Lab Results 10/16/20 10/16/20 10/16/20 Range/Units 13:00 13:00 13:30 WBC 7.3 (4.5-11.0) X10^3/uL RBC 4.10 (4.0-5.2) X10^6/uL Hgb 12.7 (12.0-16.0) g/dL Hct 38.5 (36-46) % MCV 93.8 (80-100) fL MCH 31.0 (26-34) PG MCHC 33.0 (30-36) % RDW 12.2 (11.6-14.8) % Plt Count 208 (150-400) X10^3/uL Neut % (Auto) 58.9 (50-75) % Lymph % (Auto) 34.8 (25-40) % [place] % (Auto) 5.2 (3-14) % Eos % (Auto) 0.7 L (2-4) % Baso % (Auto) 0.4 (0-2) % Neut # (Auto) 4300 (5219-3622) /uL Lymph # (Auto) 2500 (6106-2768) /uL [place] # (Auto) 400 (0-900) /uL Eos # (Auto) 100 (0-450) /uL Baso # (Auto) 0 (0-100) /uL Sodium 136 L (137-145) mmol/L Potassium 3.6 (3.4-5.1) mmol/L Chloride 109 H (98-107) mmol/L Carbon Dioxide 25 (22-32) mmol/L BUN 12 (7-17) mg/dL Creatinine 0.57 (0.52-1.04) mg/dL Estimated GFR > 60.0 (>60) mL/min BUN/Creatinine Ratio 21.1 (6-22) Glucose 105 H (70-100) mg/dL Calcium 8.9 (8.4-10.2) mg/dL Total Bilirubin 0.2 (0.2-1.3) mg/dL AST 26 (14-36) IU/L ALT 14 (<35) IU/L Alkaline Phosphatase 82 (38-126) U/L Total Protein 7.1 (6.3-8.2) g/dL Albumin 4.0 (3.5-5.0) g/dL Globulin 3.1 (1.7-4.1) g/dL Albumin/Globulin Ratio 1.3 (1.0-2.8) Urine RBC None seen (0-5/HPF) Urine WBC 1-5/hpf (0-5/HPF) Ur Squamous Epith Cells 5-10 /hpf H (0-5/HPF) Urine Bacteria None seen (None) Ur Culture Indicated? Cult not indicated Point of care testing: Point of Care Testing Test Results Negative Urine Dip Bedside Urine Glucose Negative Bedside Urine Bilirubin - Negative Bedside Urine Ketone - Negative Urine Specific [place] 1.030 Bedside Urine Occult Blood ++ Bedside Urine pH 6.0 Bedside Urine Protein - Negative Bedside Urine Urobilinogen - Negative Bedside Urine Nitrite - Negative Bedside Urine Leukocytes - Negative Esterase Imaging Data CT scan - abdomen/pelvis: Radiologist's Impression: [address] [id number] Scan ReportSigned Patient: Coleen Alves [facility]#: [id number]: 1985Acct:[id number]/Sex: 34 / FDate of Service: 10/16/20Loc: EDAccession Number: [id number] Procedure: CT abdomen pelvis w con Ordering Provider: Lucy Juarez PROCEDURE: CT ABDOMEN PELVIS W CON INDICATIONS: LLQ and L flank pain post back trauma. TECHNIQUE: After the administration of intravenous contrast, 5 mm thick sections acquired from the diaphragm to the symphysis. 5 mm coronal and sagittal reformats were acquired. For radiation dose reduction, the following was used: automated exposure control, adjustment of mA and/or kV according to patient size. COMPARISON: [facility], CT, CT KIDNEY URETER BLADDER (KUB), 04/01/2019, 15:27. FINDINGS: Image quality: Excellent. ABDOMEN: Lung bases: Lung bases are clear. Heart size is normal. Tiny hiatal hernia. Solid organs: Liver is normal in size and enhancement. Gallbladder is normal. Biliary system is non dilated. Pancreas enhances normally. Spleen is normal in size and enhancement. No adrenal nodules. Kidneys demonstrate normal size and enhancement, without hydronephrosis. Peritoneum and bowel: Bowel loops demonstrate normal wall thickness and caliber. Normal appendix. Moderate to large amount of stool in colon. No free fluid or air. Nodes and vessels: No retroperitoneal or mesenteric adenopathy by size cr iteria. Aorta and inferior vena cava are normal in size. Miscellaneous: No ventral hernias. PELVIS: Genitourinary: Bladder wall thickness is normal. There is a 1.6 cm rim enhancing cyst in the left ovary, probably a corpus luteal cyst. Uterus and right ovaries are normal. Trace free fluid in pelvis is likely within physiological limits. Miscellaneous: No inguinal hernias or adenopathy. Bones: No suspicious bony lesions. There is mild chronic anterior wedge deformity of T11. IMPRESSION: 1. No traumatic injuries identified in abdomen or pelvis. 2. A 1.6 cm corpus luteal cyst in the left ovary. Dictated by: Miladis Tabares M.D. on 10/16/2020 at 14:24 Approved by: Miladis Tabares M.D. on 10/16/2020 at 14:32 MDM Narrative Medical decision making narrative: 34-year-old female presents to the emergency department for left abdominal and flank pain after a fall while snowboarding. I suspect this is most likely musculoskeletal. However, on initial presentation, there was concern for internal injury given significant tenderness, prolonged duration of symptoms, and blood in urine. Abd CT ordered due to trauma, blood in urine, and CVA/ABD tenderness on exam especially prolonged pain x 1 week. Less likely traumatic injury to kidneys and bowel due to lack of findings on CT, microscopic urinalysis negative for blood in urine despite POC with RBC's present. Less likely renal calculi due to lack of findings on CT, no history of renal calculi. Less likely acute abdominal infection due to lack of findings on CT, patient is afebrile, hemodynamically stable, and there is no other concerning symptoms such as vomiting or diarrhea. It is possible that patient's cyst found on CT may also contribute to pain however, most likely musculoskeletal specially as it is made worse during positi on change. Patient was encouraged to take NSAIDs over the next week, she was encouraged to follow up with PCP to discuss further evaluation and/or physical therapy, if symptoms continue. Patient is hemodynamically stable, no distress upon discharge. Return precautions given for new or worsening symptoms. She agreed to plan of care verbalized understanding. <Edilson Lopez, DO - Last Filed: 10/17/20 07:11> Lab Data Labs: Lab Results 10/16/20 10/16/20 10/16/20 Range/Units 13:00 13:00 13:30 WBC 7.3 (4.5-11.0) X10^3/uL RBC 4.10 (4.0-5.2) X10^6/uL Hgb 12.7 (12.0-16.0) g/dL Hct 38.5 (36-46) % MCV 93.8 (80-100) fL MCH 31.0 (26-34) PG MCHC 33.0 (30-36) % RDW 12.2 (11.6-14.8) % Plt Count 208 (150-400) X10^3/uL Neut % (Auto) 58.9 (50-75) % Lymph % (Auto) 34.8 (25-40) % [place] % (Auto) 5.2 (3-14) % Eos % (Auto) 0.7 L (2-4) % Baso % (Auto) 0.4 (0-2) % Neut # (Auto) 4300 (1009-1087) /uL Lymph # (Auto) 2500 (9270-0807) /uL [place] # (Auto) 400 (0-900) /uL Eos # (Auto) 100 (0-450) /uL Baso # (Auto) 0 (0-100) /uL Sodium 136 L (137-145) mmol/L Potassium 3.6 (3.4-5.1) mmol/L Chloride 109 H (98-107) mmol/L Carbon Dioxide 25 (22-32) mmol/L BUN 12 (7-17) mg/dL Creatinine 0.57 (0.52-1.04) mg/dL Estimated GFR > 60.0 (>60) mL/min BUN/Creatinine Ratio 21.1 (6-22) Glucose 105 H (70-100) mg/dL Calcium 8.9 (8.4-10.2) mg/dL Total Bilirubin 0.2 (0.2-1.3) mg/dL AST 26 (14-36) IU/L ALT 14 (<35) IU/L Alkaline Phosphatase 82 (38-126) U/L Total Protein 7.1 (6.3-8.2) g/dL Albumin 4.0 (3.5-5.0) g/dL Globulin 3.1 (1.7-4.1) g/dL Albumin/Globulin Ratio 1.3 (1.0-2.8) Urine RBC None seen (0-5/HPF) Urine WBC 1-5/hpf (0-5/HPF) Ur Squamous Epith Cells 5-10 /hpf H (0-5/HPF) Urine Bacteria None seen (None) Ur Culture Indicated? Cult not indicated Point of care testing: Point of Care Testing Test Results Negative Urine Dip Bedside Urine Glucose Negative Bedside Urine Bilirubin - Negative Bedside Urine Ketone - Negative Urine Specific [place] 1.030 Bedside Urine Occult Blood ++ Bedside Urine pH 6.0 Bedside Urine Protein - Negative Bedside Urine Urobilinogen - Negative Bedside Urine Nitrite - Negative Bedside Urine Leukocytes - Negative Esterase Discharge Plan Departure Patient Disposition: Home Clinical Impression: Abdominal muscle strain Qualifiers: Encounter type: initial encounter Qualified Code(s): S39.011A - Strain of muscle, fascia and tendon of abdomen, initial encounter Instructions: DI for Abdominal Muscle Strain Activity Restrictions/Additional Instructions: Thank you for entrusting me with your care today. As discussed, your laboratory work, urine, and CT are negative for any concerning findings. There was an incidental finding of a left ovarian cyst which may be contributing to your pain. However, I suspect your pain is most likely contributed to an abdominal muscle strain. I suggest doing gentle stretches and rolling to the side before getting up from a lying position. Avoid activities that cause pain. Take naproxen or ibuprofen as needed for pain. Follow-up with your primary care provider in the next 1-2 weeks for further evaluation if symptoms continue. Return emergency department for any new or worsening symptoms such as severe pain, high fevers, uncontrollable vomiting, or any other concerns. Prescriptions: No Action norgestimate-ethinyl estradiol [[place]] 0.25-35 mg-mcg tablet 1 tab PO DAILY RF: 0 <Edilson Lopez DO - Last Filed: 10/17/20 07:11> [facility] Attestation: I was immediately available in the department for consultation. This documentation has been reviewed and I agree with assessment and plan. Supervised by Edilson Lopez DO
[2020-10-16] MEDS: KETOROLAC 60 MG/2 ML VIAL 30 MG IV (13:08)
[2020-10-16] MEDS: SODIUM CHLORIDE 0.9% 1,000 ML 1000 ML IV (13:09)
[2020-10-16 13:11] LABS: Add Manual Diff / Slide Review NO; Basophils Absolute Auto 0 /uL (0-100); Basophils Percent Auto 0.4 % (0-2); Eosinophils Absolute Auto 100 /uL (0-450); Eosinophils Percent Auto 0.7 % (2-4); Hematocrit 38.5 % (36-46); Hemoglobin 12.7 g/dL (12.0-16.0); Lymphocytes Absolute Auto 2500 /uL (1100-4500); Lymphocytes Percent Auto 34.8 % (25-40); Mean Corpuscular Volume 93.8 fL (80-100); Monocytes Absolute Auto 400 /uL (0-900); Monocytes Percent Auto 5.2 % (3-14); Neutrophils Absolute Auto 4300 /uL (1500-7000); Neutrophils Percent Auto 58.9 % (50-75); Platelet Count 208 X10^3/uL (150-400); Red Cell Distribution Width 12.2 % (11.6-14.8); White Blood Cell Count 7.3 X10^3/uL (4.5-11.0)
[2020-10-16 13:20] LABS: Alanine Aminotransferase 14 IU/L (<35); Albumin Globulin Ratio 1.3 (1.0-2.8); Alkaline Phosphatase 82 U/L (38-126); Aspartate Aminotransferase 26 IU/L (14-36); BUN Creatinine Ratio 21.1 (6-22); Bilirubin Total 0.2 mg/dL (0.2-1.3); Blood Urea Nitrogen 12 mg/dL (7-17); Calcium 8.9 mg/dL (8.4-10.2); Carbon Dioxide 25 mmol/L (22-32); Chloride 109 mmol/L (98-107); Estimated Glomerular Filt Rate > 60.0 mL/min (>60); Globulin 3.1 g/dL (1.7-4.1); Glucose 105 mg/dL (70-100); HEMOLYSIS < 15 (0-50); Potassium 3.6 mmol/L (3.4-5.1); Sodium 136 mmol/L (137-145); Total Protein 7.1 g/dL (6.3-8.2)
[2020-10-16 13:46] LABS: Bacteria Urine None Seen; RBC Urine None Seen (0-5/HPF)
[2020-10-16 13:58] LABS: Culture Indicated Urine Cult Not Indicated; Squamous Epithelial Cell Urine 5-10 /HPF (0-5/HPF); WBC Urine 1-5/HPF (0-5/HPF)
[2020-10-16 14:13] VITALS: BP 107/56; PULSE 73; O2SAT 98
== END 2020-10-16 15:02 | disposition home or self-care (01) ==
PROVIDERS: Emergency Provider Nurse Practitioner
DX: S39.011A Strain of muscle, fascia and tendon of abdomen, initial encounter (principal); V00.311A Fall from snowboard, initial encounter
CPT/HCPCS: 36415; 74177; 80053; 81003; 81015; 81025; 85025; 96361; 96374; 99283; 99284; J1885

== ENCOUNTER 2020-12-26 16:52 | Emergency (ER) | payer OTHER, MEDICAID, SELFPAY ==
[2020-12-26 17:03] VITALS: BP 127/77; PULSE 79; RESP 18; TEMP 37.2; O2SAT 99; BMI 25.6
[2020-12-26 17:18] VITALS: BP 115/72; PULSE 74; O2SAT 99
--- NOTE | 2020-12-26 17:37 | DI.RAD.S_ITS ---
PROCEDURE: XR RIBS RT MIN 3V W CXR 1V INDICATIONS: pain fall down stairs TECHNIQUE: 2 views of the right ribs were acquired, along with a single view chest. COMPARISON: None. FINDINGS: Surgical changes and devices: None. Bones and chest wall: No fractures or dislocations. No suspicious bony lesions. Overlying soft tissues appear unremarkable. Lungs and pleura: No pleural effusions or pneumothorax. Lungs appear clear. Mediastinum: Mediastinal contours appear normal. Heart size is normal. IMPRESSION: No evidence of acute displaced right rib fracture. No evidence acute pulmonary process. Dictated by: Richard Metcalf M.D. on 12/26/2020 at 18:32 Approved by: Richard Metcalf M.D. on 12/26/2020 at 18:33
--- NOTE | 2020-12-26 17:37 | DI.RAD.S_ITS ---
PROCEDURE: XR ELBOW RT 2V INDICATIONS: fall pain TECHNIQUE: 3 views of the elbow were acquired. COMPARISON: None. FINDINGS: Bones: No fractures or dislocations. No suspicious bony lesions. Soft tissues: No elbow joint effusion. No suspicious soft tissue calcifications. IMPRESSION: No evidence acute bony abnormality of the right elbow. If clinical suspicion and/or symptoms persist, further assessment with repeat plain films, or advanced imaging (e.g., CT, MRI, or bone scan) may be helpful for further assessment. Dictated by: Richard Metcalf M.D. on 12/26/2020 at 18:30 Approved by: Richard Metcalf M.D. on 12/26/2020 at 18:30
--- NOTE | 2020-12-26 17:37 | DI.RAD.S_ITS ---
PROCEDURE: XR FOOT RT MIN 3V INDICATIONS: fall pain TECHNIQUE: 3 views of the foot were acquired. COMPARISON: [facility], , FOOT 3V RIGHT, 03/17/2017, 12:04. FINDINGS: Bones: Remote 1st tarsometatarsal fusion. Surgical hardware intact without hardware failure or loosening. No fractures or dislocations. No suspicious bony lesions. Soft tissues: No tibiotalar joint effusion. Achilles tendon appears normal. IMPRESSION: No evidence acute bony abnormality of the right foot Dictated by: Richard Metcalf M.D. on 12/26/2020 at 18:30 Approved by: Richard Metcalf M.D. on 12/26/2020 at 18:31
--- NOTE | 2020-12-26 17:37 | DI.RAD.S_ITS ---
PROCEDURE: XR PELVIS 1-2V INDICATIONS: fall pain TECHNIQUE: 1 view(s) of the pelvis acquired. COMPARISON: None. FINDINGS: Bones: No fractures or dislocations. No suspicious bony lesions. Soft tissues: Visualized bowel gas pattern is normal. No suspicious soft tissue calcifications. IMPRESSION: No evidence acute bony abnormality of the pelvis. If clinical suspicion and/or symptoms persist, further assessment with repeat plain films, or advanced imaging (e.g., CT, MRI, or bone scan) may be helpful for further assessment. Dictated by: Richard Metcalf M.D. on 12/26/2020 at 18:32 Approved by: Richard Metcalf M.D. on 12/26/2020 at 18:32
--- NOTE | 2020-12-26 17:37 | DI.RAD.S_ITS ---
PROCEDURE: XR HUMERUS RT 2V INDICATIONS: pain fall TECHNIQUE: AP and lateral views of the humerus were acquired. COMPARISON: None. FINDINGS: Bones: No fractures or dislocations. No suspicious bony lesions. Soft tissues: No suspicious soft tissue calcifications. IMPRESSION: No evidence acute bony abnormality of the right humerus Dictated by: Richard Metcalf M.D. on 12/26/2020 at 18:31 Approved by: Richard Metcalf M.D. on 12/26/2020 at 18:31
--- NOTE | 2020-12-26 17:37 | DI.RAD.S_ITS ---
PROCEDURE: XR SACRUM COCCYX MIN 2V INDICATIONS: fall pain TECHNIQUE: 3 views of the sacrum and coccyx acquired. COMPARISON: None. FINDINGS: Bones: No fractures or dislocations. No suspicious bony lesions. Soft tissues: Visualized bowel gas pattern is normal. No suspicious soft tissue densities. IMPRESSION: No evidence acute bony abnormality of the sacrum and coccyx Dictated by: Richard Metcalf M.D. on 12/26/2020 at 18:33 Approved by: Richard Metcalf M.D. on 12/26/2020 at 18:33
--- NOTE | 2020-12-26 17:54 | ED_ITS ---
HPI - Fall General Chief Complaint: Trauma Stated Complaint: fall down stairs, on back, multi injured Time Seen by Provider: 12/26/20 17:24 Source: patient Mode of arrival: Ambulatory Limitations: no limitations History of Present Illness HPI Narrative: Patient is a 35-year-old female who presents after fall down 10 stairs in her pop-up camper. She seems to have landed mostly on her right side complaining of severe right humerus pain right-sided back pain and buttock pain along with right toe pain. She denies hitting her head no neck pain no loss of consciousness no nausea or vomiting. MD complaint: fall Onset (ago): minute(s) Fall from: down stairs (#) (10) Fall witnessed: yes, by family Loss of consciousness: none Location of injury: back and buttocks Location of injury - extremities: Right: arm Related Data Home Medications Medication Instructions Recorded Confirmed norgestimate-ethinyl estradiol 1 tab PO DAILY 04/01/19 04/01/19 [[place]] Previous Rx's Medication Instructions Recorded hydrocodone-acetaminophen 1 tab PO Q6H PRN #10 tab 12/26/20 Allergies Allergy/AdvReac Type Severity Reaction Status Date / Time Penicillins Allergy Verified 12/26/20 17:08 Review of Systems Review of Systems ROS Unobtainable: All systems reviewed & are unremarkable except as noted in HPI and below Constitutional Constitutional: Denies chills, Denies fever(s), Denies lethargy and Denies weakness Eyes Eyes: Denies change in vision, Denies eye discharge, Denies irritation and Denies loss of vision Cardiovascular Cardiovascular: Denies chest pain, Denies syncope, Denies irregular heart rhythm, Denies lightheadedness, Denies palpitations, Denies dyspnea, Denies dyspnea on exertion and Denies orthopnea Respiratory Respiratory: Denies cough, Denies dyspnea, Denies dyspnea on exertion and Denies wheezing Gastrointestinal Gastrointestinal: Denies abdominal pain, Denies change in bowel habits, Denies diarrhea, Denies nausea and Denies vomiting Musculoskeletal Musculoskeletal: Reports as per HPI Integumentary/Breasts Skin/Breast: Denies pruritus, Denies erythema, Denies rash and Denies wounds Neurologic Neurologic: Denies syncope, Denies loss of vision and Denies weakness Endocrine Endocrine: Denies palpitations Allergic/Immunologic Allergic/Immunologic: Denies wheezing Patient History Medical History No significant medical problems Social History Smoking Status: Never smoker Smoking Status: Never smoker alcohol intake frequency: a few times a month Substance Use Type: marijuana Exam Initial Vital Signs Initial Vital Signs: Vital Signs Temperature 98.9 F 12/26/20 17:03 Pulse Rate 79 12/26/20 17:03 Respiratory Rate 18 12/26/20 17:03 Blood Pressure 127/77 12/26/20 17:03 Pulse Oximetry 99 12/26/20 17:03 GENERAL: Alert young female appears in pain and in no acute distress. HEENT: Head atraumatic,EOMI, pupils reactive, face symmetric, moist mucous membranes CARDIOVASCULAR: Regular rate and rhythm without murmurs, rubs or gallops. RESPIRATORY: Breath sounds equal bilaterally, no wheezes rales or rhonchi. ABDOMEN: Soft, nontender. Normoactive bowel sounds all 4 quadrants. No guarding or rebound. BACK: No vertebral tenderness or step-offs abrasion noted over right side at the thoracic level EXTREMITIES: Normal range of motion, no clubbing or edema. Neurovascularly intact. Pain right distal humerus elbow intact distal radial pulse intact sensation over deltoid intact able to move fingers radial median and ulnar nerve intact NEUROLOGICAL: Alert and oriented x4.Normal gait and speech. SKIN: Abrasion noted on right back Course Orders Ordered: ED Orders 12/26/20 17:37 XR elbow RT 2V Stat XR foot RT min 3V Stat XR humerus RT 2V Stat XR pelvis 1-2V Stat XR ribs RT min 3V w CXR1V Stat XR sacrum coccyx min 2V Stat 12/26/20 17:53 Urine Microscopic Stat Discontinued Medications Hydrocodone Bitart/Acetaminophen (Hydrocodone/Acet 5/325 Prepack) 1 bottle MISC SEEINSTR ONE Stop: 12/26/20 19:06 Last Admin: 12/26/20 19:19 Dose: 1 bottle Documented by: SALENA Morphine Sulfate (Morphine 4 Mg/Ml Inj) 4 mg IM NOW ONE Stop: 12/26/20 17:38 Last Admin: 12/26/20 18:37 Dose: 4 mg Documented by: SALENA Ondansetron HCl (Ondansetron 4 Mg Odt) 4 mg SL NOW ONE Stop: 12/26/20 17:38 Last Admin: 12/26/20 18:38 Dose: 4 mg Documented by: SALENA Vital Signs Vital signs: Vital Signs - 8 hr 12/26/20 17:03 12/26/20 17:18 12/26/20 19:24 Temperature 98.9 F Pulse Rate 79 74 79 Respiratory Rate 18 18 Blood Pressure 127/77 115/72 144/80 H Pulse Oximetry 99 99 99 MDM - Fall Lab Data Labs: Lab Results 12/26/20 Range/Units 17:53 Urine RBC None seen (0-5/HPF) Urine WBC None seen (0-5/HPF) Amorphous Sediment 2+ Urine Bacteria None seen (None) Ur Culture Indicated? Cult not indicated Point of Care Testing Test Results Negative Urine Dip Bedside Urine Glucose Negative Bedside Urine Bilirubin - Negative Bedside Urine Ketone - Negative Urine Specific [place] 1.020 Bedside Urine Occult Blood +/- Bedside Urine pH 7.5 Bedside Urine Protein - Negative Bedside Urine Urobilinogen - Negative Bedside Urine Nitrite - Negative Bedside Urine Leukocytes - Negative Esterase Imaging Data Extremity x-ray #1: Radiologist's Impression: PROCEDURE: XR ELBOW RT 2V INDICATIONS: fall pain TECHNIQUE: 3 views of the elbow were acquired. COMPARISON: None. FINDINGS: Bones: No fractures or dislocations. No suspicious bony lesions. Soft tissues: No elbow joint effusion. No suspicious soft tissue calcifications. IMPRESSION: No evidence acute bony abnormality of the right elbow. If clinical suspicion and/or symptoms persist, further assessment with repeat plain films, or advanced imaging (e.g., CT, MRI, or bone scan) may be helpful for further assessment. Dictated by: Richard Metcalf M.D. on 12/26/2020 at 18:30 Extremity x-ray #2: Radiologist's Impression: PROCEDURE: XR FOOT RT MIN 3V INDICATIONS: fall pain TECHNIQUE: 3 views of the foot were acquired. COMPARISON: [facility], FOOT 3V RIGHT, 03/17/2017, 12:04. FINDINGS: Bones: Remote 1st tarsometatarsal fusion. Surgical hardware intact without hardware failure or loosening. No fractures or dislocations. No suspicious bony lesions. Soft tissues: No tibiotalar joint effusion. Achilles tendon appears normal. IMPRESSION: No evidence acute bony abnormality of the right foot Dictated by: Richard Metcalf M.D. on 12/26/2020 at 18:30 Extremity x-ray #3: Radiologist's Impression: PROCEDURE: XR FOOT RT MIN 3V INDICATIONS: fall pain TECHNIQUE: 3 views of the foot were acquired. COMPARISON: [facility], , FOOT 3V RIGHT, 03/17/2017, 12:04. FINDINGS: Bones: Remote 1st tarsometatarsal fusion. Surgical hardware intact without hardware failure or loosening. No fractures or dislocations. No suspicious bony lesions. Soft tissues: No tibiotalar joint effusion. Achilles tendon appears normal. IMPRESSION: No evidence acute bony abnormality of the right foot Dictated by: Richard Metcalf M.D. on 12/26/2020 at 18:30 Chest x-ray: Radiologist's Impression: PROCEDURE: XR RIBS RT MIN 3V W CXR 1V INDICATIONS: pain fall down stairs TECHNIQUE: 2 views of the right ribs were acquired, along with a single view chest. COMPARISON: None. FINDINGS: Surgical changes and devices: None. Bones and chest wall: No fractures or dislocations. No suspicious bony lesions. Overlying soft tissues appear unremarkable. Lungs and pleura: No pleural effusions or pneumothorax. Lungs appear clear. Mediastinum: Mediastinal contours appear normal. Heart size is normal. IMPRESSION: No evidence of acute displaced right rib fracture. No evidence acute pulmonary process. Dictated by: Richard Metcalf M.D. on 12/26/2020 at 18:32 XR Sacrum: Radiologist's Impression: PROCEDURE: XR SACRUM COCCYX MIN 2V INDICATIONS: fall pain TECHNIQUE: 3 views of the sacrum and coccyx acquired. COMPARISON: None. FINDINGS: Bones: No fractures or dislocations. No suspicious bony lesions. Soft tissues: Visualized bowel gas pattern is normal. No suspicious soft tissue densities. IMPRESSION: No evidence acute bony abnormality of the sacrum and coccyx Dictated by: Richard Metcalf M.D. on 12/26/2020 at 18:33 XR Pelvis: Radiologist's Impression: PROCEDURE: XR PELVIS 1-2V INDICATIONS: fall pain TECHNIQUE: 1 view(s) of the pelvis acquired. COMPARISON: None. FINDINGS: Bones: No fractures or dislocations. No suspicious bony lesions. Soft tissues: Visualized bowel gas pattern is normal. No suspicious soft tissue calcifications. IMPRESSION: No evidence acute bony abnormality of the pelvis. If clinical suspicion and/or symptoms persist, further assessment with repeat plain films, or advanced imaging (e.g., CT, MRI, or bone scan) may be helpful for further assessment. Dictated by: Richard Metcalf M.D. on 12/26/2020 at 18:32 MDM Narrative Medical decision making narrative: The patient fortunately has no broken bones and likely has contusions. She is complaining mostly of arm pain. At this time pain control only and conservative management. Discharge Plan Departure Patient Disposition: Home Clinical Impression: Contusion Qualifiers: Encounter type: initial encounter Contusion area: upper arm Laterality: right Qualified Code(s): S40.021A - Contusion of right upper arm, initial encounter Instructions: Contusion Activity Restrictions/Additional Instructions: *You have been diagnosed with multiple right-sided contusion *What to do: At this time expect to be sore tomorrow and for the next few days. You may notice that your buttock remains sore for a number of weeks. Ice 20-30 minutes at a time *Continue to take medications as directed Ibuprofen 800 mg every 8 hours if needed for mild to moderate pain [place] 1 tablet every 6 hours only if needed for severe pain--> SENT TO [facility] IN ED *Follow up with your primary care provider in 2-3 days *Return to ER if you should have increasing pain numbness tingling or weakness or any new, worsening or concerning symptoms CONTROLLED SUBSTANCE DISCHARGE (Narcotoic/benzodiazepine/Flexeril/Phenergan) 1. You have been prescribed narcotic medications, it does have acetaminophen/Tylenol/paracetamol in it, DO NOT TAKE MORE THAN 4,00mg in 24 hours of Tylenol. TRAMADOL DOES NOT CONTAIN TYLENOL 2. Please understand that we cannot provide further refills of narcotics, benzodiazepines or controlled substances through the ED and her pain management will need to be through your provider. 3. While on these medications you cannot drive or operate heavy machinery. 4. You cannot sign legal documents or perform any duties such as this. 5. As long as you're taking opiate pain medications he should also be taking a stool softener such as Colace, Dulcolax, MiraLAX or prune juice, to help avoid constipation. Prescriptions: New hydrocodone-acetaminophen 5-325 mg tablet 1 tab PO Q6H PRN (Reason: pain) Qty: 10 RF: 0 No Action norgestimate-ethinyl estradiol [[place]] 0.25-35 mg-mcg tablet 1 tab PO DAILY RF: 0
--- NOTE | 2020-12-26 17:57 | PC.NURSE ---
right elbow pain, right leg pain, no deformities, no swelling noted.
[2020-12-26 18:36] LABS: Bacteria Urine None Seen; RBC Urine None Seen (0-5/HPF); WBC Urine None Seen (0-5/HPF)
[2020-12-26] MEDS: MORPHINE 4 MG/ML INJ IM (18:37)
[2020-12-26] MEDS: ONDANSETRON 4 MG ODT SL (18:38)
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
[2020-12-26 18:51] LABS: Amorphous Sediment Urine 2+; Culture Indicated Urine Cult Not Indicated
[2020-12-26] MEDS: HYDROCODONE/ACET 5/325 PREPACK 1 BOTTLE MISC (19:19)
[2020-12-26 19:24] VITALS: BP 144/80; PULSE 79; RESP 18; O2SAT 99
== END 2020-12-26 19:26 | disposition home or self-care (01) ==
PROVIDERS: Emergency Provider Emergency Medicine
DX: S40.021A Contusion of right upper arm, initial encounter (principal); R07.81 Pleurodynia; M79.671 Pain in right foot; W19.XXXA Unspecified fall, initial encounter
CPT/HCPCS: 71101; 72170; 72220; 73060; 73070; 73630; 81003; 81015; 81025; 96372; 99284; J2270

== ENCOUNTER → 2021-01-26 12:12 | Outpatient (CLI) | payer OTHER, MEDICAID, SELFPAY ==
--- NOTE | 2021-01-26 12:18 | DI.RAD.S_ITS ---
PROCEDURE: XR LUMBAR SPINE 2-3V INDICATIONS: LBP TECHNIQUE: 3 views of the lumbar spine were acquired. COMPARISON: None. FINDINGS: Bones: No acute fracture identified. Multilevel degenerative endplate sclerosis and spurring. Diffuse facet arthropathy. Mild narrowing of the L5-S1 disc space. Lower thoracic disc space narrowing. Soft tissues: Overlying bowel gas pattern is normal. No suspicious soft tissue calcifications. IMPRESSION: Lower thoracic spondylosis. Mild L5-S1 disc degeneration. Diffuse facet arthropathy, mild. Dictated by: Yuriy Gong M.D. on 01/26/2021 at 13:26 Approved by: Yuriy Gong M.D. on 01/26/2021 at 13:28
== END ==
PROVIDERS: PCP Family Medicine; Referring Provider Nurse Practitioner Family; Visit Provider Nurse Practitioner Family
DX: M54.5 Low back pain (principal); M51.37 Other intervertebral disc degeneration, lumbosacral region; M47.814 Spondylosis without myelopathy or radiculopathy, thoracic region; M47.816 Spondylosis without myelopathy or radiculopathy, lumbar region
CPT/HCPCS: 72100

== ENCOUNTER → 2023-06-30 15:00 | Outpatient (CLI) | payer OTHER, MEDICAID, SELFPAY ==
--- NOTE | 2023-06-30 | DI.US.S_ITS ---
PROCEDURE: US PELVIC COMPLETE INDICATIONS: PELVIC PAIN TECHNIQUE: Real-time scanning was performed of the pelvic organs, with image documentation. Additional endovaginal scanning was necessary due to incomplete visualization of the adnexal and endometrial structures by transabdominal scanning. COMPARISON: None. FINDINGS: Uterus: Uterus is anteverted and normal in size at 7.4 x 2.8 x 3.6 cm. The myometrium is homogeneous. The endometrium measures 5 mm combined thickness. Ovaries: The right ovary measures 2.6 x 1.5 x 1.7 cm, with a calculated ovarian volume of 3.4 cc. The left ovary measures 2.9 x 1.5 x 2.1 cm, with a calculated ovarian volume of 4.9 cc. The ovaries have a normal sonographic appearance. Less than 12 follicles can be seen in each ovary. No adnexal masses are seen. Other: No pathologic free abdominal or pelvic fluid. IMPRESSION: Unremarkable pelvic ultrasound. We strive to produce accurate, complete, and clear reports of imaging services. To assist us in improving patient care, this report was composed using standard report templates and voice recognition software. Therefore, it may contain abnormal punctuation, insertions and/or omissions. Occasional wrong-word or sound-alike substitutions may occur. Though we review the report and make efforts to correct it, we do recommend that the report be read carefully in proper context to recognize any text inaccuracies. Dictated by: Juliet Renae M.D. on 06/30/2023 at 16:59 Approved by: Juliet Renae M.D. on 06/30/2023 at 17:00
== END ==
PROVIDERS: PCP Family Medicine; Referring Provider Family Medicine; Visit Provider Family Medicine
DX: R10.2 Pelvic and perineal pain (principal)
CPT/HCPCS: 76830; 76856; 93976

== ENCOUNTER → 2023-07-04 13:43 | Outpatient (CLI) | payer OTHER, MEDICAID, SELFPAY ==
--- NOTE | 2023-07-04 14:04 | DI.CT.S_ITS ---
PROCEDURE: CT IVP A/P W/WO INDICATIONS: Asymptomatic microscopic hematuria TECHNIQUE: Optional 5 mm thick noncontrast images acquired from the diaphragm to the symphysis pubis. After the administration of intravenous contrast, 5 mm thick images acquired from the diaphragm to the symphysis pubis after a 10-minute delay. 2 mm thick coronal and sagittal reformats were then performed of the kidneys and ureters. For radiation dose reduction, the following was used: automated exposure control, adjustment of mA and/or kV according to patient size. COMPARISON: None. FINDINGS: Image quality: Excellent. Lung bases: Lung bases are clear. Heart size is normal. Urinary system: Both kidneys are normal in size, without hydronephrosis or nephrolithiasis on pre-contrast images. No perinephric fat stranding. There is normal bilateral renal enhancement. Renal calyces appear normal in morphology when filled with contrast. Opacified portions of both ureters demonstrate normal caliber. Bladder wall thickness is normal. No calcified bladder stones. Other solid organs: Liver is normal in size and enhancement. Gallbladder is unremarkable . Biliary system is non dilated. Pancreas enhances normally. Spleen is normal in size and enhancement. No adrenal nodules. Peritoneum and bowel: Bowel loops demonstrate normal wall thickness and caliber. No free fluid or air. Nodes and vessels: No retroperitoneal or mesenteric adenopathy by size criteria. Aorta and inferior vena cava are normal in size. Abdominal wall: No ventral hernias. Pelvis: No pathologic free pelvic fluid. No inguinal hernias or adenopathy. Bones: No suspicious bony lesions. No vertebral body compression fractures. IMPRESSION: Normal CT IVP. No nephrolithiasis or filling defects within the opacified renal collecting system or ureters. Dictated by: Antonio Miles M.D. on 07/04/2023 at 14:32 Approved by: Antonio Miles M.D. on 07/04/2023 at 14:35
== END ==
PROVIDERS: PCP Family Medicine; Referring Provider Family Medicine; Visit Provider Family Medicine
DX: R31.21 Asymptomatic microscopic hematuria (principal)
CPT/HCPCS: 74178

== ENCOUNTER → 2023-09-09 08:09 | Outpatient (CLI) | payer OTHER, MEDICAID, SELFPAY ==
--- NOTE | 2023-09-09 08:11 | DI.RAD.S_ITS ---
PROCEDURE: XR ELBOW LT MIN 3V INDICATIONS: Left arm injury TECHNIQUE: 3 views of the elbow were acquired. COMPARISON: [facility], CR, XR WRIST LT MIN 3V, 09/09/2023, 8:12. FINDINGS: Bones: No fractures or dislocations. No suspicious bony lesions. Soft tissues: No elbow joint effusion. No suspicious soft tissue calcifications. IMPRESSION: No acute bony abnormality or significant joint effusion. Dictated by: Jun Ochoa M.D. on 09/09/2023 at 8:01 Approved by: Jun Ochoa M.D. on 09/09/2023 at 8:02
--- NOTE | 2023-09-09 08:11 | DI.RAD.S_ITS ---
PROCEDURE: XR WRIST LT MIN 3V INDICATIONS: Left arm injury TECHNIQUE: 4 views of the wrist were acquired. COMPARISON: [facility], [place], HAND 3V LEFT, 10/09/2014, 15:01. [facility], [place], XR ELBOW LT MIN 3V, 09/09/2023, 8:12. FINDINGS: Bones: No [place] acute fractures or dislocations. There is a remote, poorly healed fracture ulnar styloid. No suspicious bony lesions. Soft tissues: No suspicious soft tissue calcifications. IMPRESSION: No acute bony abnormality. Remote, poorly healed fracture of the ulnar styloid. Dictated by: Jun Ochoa M.D. on 09/09/2023 at 7:59 Approved by: Jun Ochoa M.D. on 09/09/2023 at 8:01
== END ==
LOC: RAD 08:10
PROVIDERS: PCP Family Medicine; Referring Provider Registered Nurse; Visit Provider Registered Nurse
DX: M25.532 Pain in left wrist (principal); M25.522 Pain in left elbow; S52.612S Displaced fracture of left ulna styloid process, sequela
CPT/HCPCS: 73080; 73110

== ENCOUNTER → 2023-10-05 08:13 | Outpatient (CLI) | payer OTHER, MEDICAID, SELFPAY ==
--- NOTE | 2023-10-05 | DI.RAD.S_ITS ---
PROCEDURE: XR FOOT LT MIN 3V INDICATIONS: FOOT PAIN TECHNIQUE: 3 views of the foot were acquired. COMPARISON: [facility], CR, XR FOOT RT MIN 3V, 12/26/2020, 17:57. [facility], CR, FOOT 3V RIGHT, 03/17/2017, 12:04. FINDINGS: Bones: No fractures or dislocations. Mild hallux valgus angulation of the 1st MTP with medial bunion formation. No suspicious bony lesions. Soft tissues: No tibiotalar joint effusion. Achilles tendon appears normal. IMPRESSION: No acute bony abnormality. Mild hallux valgus angulation of the 1st MTP with medial bunion formation. Dictated by: Chuy Quiroz M.D. on 10/05/2023 at 10:23 Approved by: Chuy Quiroz M.D. on 10/05/2023 at 10:26
--- NOTE | 2023-10-05 08:20 | DI.RAD.S_ITS ---
PROCEDURE: XR PELVIS 1-2V INDICATIONS: HIP PAIN TECHNIQUE: 1 view(s) of the pelvis acquired. COMPARISON: [facility], , XR PELVIS 1-2V, 12/26/2020, 17:57. FINDINGS: Bones: No fractures or dislocations. No suspicious bony lesions. Soft tissues: Visualized bowel gas pattern is normal. No suspicious soft tissue calcifications. IMPRESSION: No acute bony abnormality. Dictated by: Chuy Quiroz M.D. on 10/05/2023 at 10:21 Approved by: Chuy Quiroz M.D. on 10/05/2023 at 10:22
--- NOTE | 2023-10-05 08:20 | DI.RAD.S_ITS ---
PROCEDURE: XR LUMBAR SPINE 2-3V INDICATIONS: BACK PAIN TECHNIQUE: 3 views of the lumbar spine were acquired. COMPARISON: [facility], , XR LUMBAR SPINE 2-3V, 01/26/2021, 12:16. FINDINGS: Bones: 5 [id number] vertebrae are present. There is normal bony alignment. Mild disc height loss at L5-S1. No vertebral body compression fractures. No suspicious bony lesions. Soft tissues: Overlying bowel gas pattern is normal. No suspicious soft tissue calcifications. IMPRESSION: Stable mild disc degeneration at L5-S1. No acute osseous abnormalities. Dictated by: Chuy Quiroz M.D. on 10/05/2023 at 10:22 Approved by: Chuy Quiroz M.D. on 10/05/2023 at 10:23
--- NOTE | 2023-10-05 08:20 | DI.RAD.S_ITS ---
PROCEDURE: XR WRIST LT MIN 3V INDICATIONS: WRIST PAIN TECHNIQUE: 4 views of the wrist were acquired. COMPARISON: [facility], , XR WRIST LT MIN 3V, 09/09/2023, 8:12. FINDINGS: Bones: No fractures or dislocations. Stable remote poorly healed ulnar styloid fracture. No suspicious bony lesions. Soft tissues: No suspicious soft tissue calcifications. IMPRESSION: No acute bony abnormality. Stable old healed ulnar styloid fracture. Dictated by: Chuy Quiroz M.D. on 10/05/2023 at 10:18 Approved by: Chuy Quiroz M.D. on 10/05/2023 at 10:21
== END ==
PROVIDERS: PCP Family Medicine; Referring Provider Family Medicine; Visit Provider Family Medicine
DX: M51.37 Other intervertebral disc degeneration, lumbosacral region (principal); M25.532 Pain in left wrist; M54.50 Low back pain, unspecified; M25.551 Pain in right hip; M25.572 Pain in left ankle and joints of left foot; M20.12 Hallux valgus (acquired), left foot; M21.612 Bunion of left foot
CPT/HCPCS: 72100; 72170; 73110; 73630

== ENCOUNTER → 2023-10-17 19:15 | Outpatient (CLI) | payer OTHER, MEDICAID, SELFPAY ==
--- NOTE | 2023-10-17 | DI.MRI.S_ITS ---
PROCEDURE: MR HIP RT WO CON INDICATIONS: acute bilatral low back pain w/o sciatica; pain of right hip TECHNIQUE: Noncontrast coronal T1 spin echo and STIR through the bony pelvis. Coronal and axial T2 fast spin echo with fat saturation, sagittal T1 spin echo, and oblique axial T2 fast spin echo with fat saturation through the hip. COMPARISON: [facility], CR, XR PELVIS 1-2V, 10/05/2023, 9:16. FINDINGS: Image quality: Excellent. Bones and joints: Bone marrow of the pelvic ring and proximal femurs show normal signal throughout. No intraosseous lesions or fractures. No avascular necrosis of the femoral head. Mild facet hypertrophy is seen in the lower lumbar spine. Tendons and ligaments: The gluteus medius and minimus tendons appear intact, without associated muscle atrophy. The proximal iliotibial band appears intact. The iliopsoas tendon appears intact, without adjacent bursal fluid collections. The origin of the hamstring tendon is intact at the ischial tuberosity. The tendons through the direct and indirect heads of the rectus femoris muscle origin appear intact. Labrum and cartilage: There is nondisplaced tearing at the anterior superior acetabular labrum. Cartilage surface of the femoral head appears of normal thickness. There is normal morphology of the femoral head and acetabulum. Soft tissues: Visualized muscles demonstrate normal bulk and internal signal. Quadratus femoris muscle demonstrates no internal edema to suggest ischiofemoral impingement. The proximal sciatic neurovascular bundle appears normal adjacent to the hamstring tendons. Pelvic soft tissues demonstrate no acute abnormality. IMPRESSION: 1. Nondisplaced tearing of the anterior superior right acetabular labrum. 2. No acute trabecular bone injury or focal cartilage defect. No significant ligament or tendon injury is seen. 3. Mild facet hypertrophy at the lower lumbar spine. Approved by: Nils Christie M.D. on 10/18/2023 at 9:39
== END ==
PROVIDERS: PCP Family Medicine; Referring Provider Family Medicine; Visit Provider Family Medicine
DX: S73.191A Other sprain of right hip, initial encounter (principal); M47.816 Spondylosis without myelopathy or radiculopathy, lumbar region; M54.50 Low back pain, unspecified; M25.551 Pain in right hip
CPT/HCPCS: 73721

== ENCOUNTER 2023-12-18 07:30 | Outpatient (RCR) | payer OTHER, MEDICAID, SELFPAY ==
--- NOTE | 2023-11-15 15:43 | PT.OIE ---
Current Diagnoses Pain in right wrist (11/15/23) Pain in right hip (11/15/23) Low back pain, unspecified (11/15/23) Weakness (11/15/23) Past Medical History (Last Reviewed 09/09/23 @ 08:04 by GORDON Bhatia) No significant medical problems Visit Care Team Role Provider Type Shirley Zaldivar MD Attending Provider Physician Family Provider Primary Care Provider Referring Provider Specialty: [facility] Practice Address: [address] [place] [address], [facility] [place] [place], [facility] Email: [email or web address] Physical Therapy Initial Evaluation PT-OP-A Visit Information Start: 11/15/23 07:28 Freq: Status: Active Protocol: Document 11/15/23 08:15 NM (Rec: 11/15/23 12:38 NM [id number]) Out-Patient Physical Therapy Visit Information Visit Information Visit Type Initial Evaluation Visit Note 24 visits max Visit Start Time 08:15 Visit Stop Time 09:00 Visit Number 1 Evaluation Information Evaluation Date 11/15/23 PT-OP-B Current Condition Start: 11/15/23 07:28 Freq: Status: Active Protocol: Document 11/15/23 08:15 NM (Rec: 11/15/23 12:38 NM [id number]) Current Condition History of Current Condition Onset Date November 2020 Current Complaints mobility, ROM, pain, decreased activity History of Current Condition Pt presents with R hip, lumbar spine, and L wrist pain. Symptoms began in November 2020, she fell down stairs from their trailer landing on her back, she went to ED. She fracture coccyx at that time with no other fractures in fall but did not have any follows up. Currently no coccyx pain. 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 She reports that she is unable to get out of bed sometimes due to low back pain. Occasionally she sees chiropractor, but only has short term relief. She is unable to sit cross legged due to limited hip mobility. Pt has a referral to orthopedic surgeon for her hip on 12/13 and is waiting on her referral for her spine. MRI shows labral tear. She would prefer to treat both lumbar spine and hip until surgeons determine if she is a candidate for surgery. 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 Prior Treatments and Tests Fell 07/27 on L wrist Hx of broken arms, volar fall; doesn 't want to work on for PT MRI 10/28: Labral tear R hip Radiographs 10/28: L5-S1 disc degeneration, no pelvis bony abnormalities PT-OP-C Subjective Start: 11/15/23 07:28 Freq: Status: Active Protocol: Document 11/15/23 08:15 NM (Rec: 11/15/23 12:38 NM [id number]) OP-PT Subjective Patient Comments Patient Comments see hx above pt report Patient Questionnaires Lower Extremity Functional Scale LEFS Score 38/80 Oswestry Low Back Index Oswestry Score 14/50 OP-PT Pain Assessment Pain Assessment Grid Paper Pain Assessment Grid Completed Yes Location R hip Pain Location Details deep R ant groin Intensity 6 Scale Used Numeric (0 - 10) Description Dull Description- Other 6-7; stuck Frequency Constant Radiating Location to inner thigh, follows iliac crest Pain Aggravating Factors Activity Other Pain Aggravating Factors sleep (same as above) Pain Alleviating Factors None lumbar spine Pain Location Details pelvis, banded Scale Used Numeric (0 - 10) Description Throbbing,With Movement Description- Other feels like glue, stuck, none at rest; 6/7 Frequency Daily Pain Duration worse morning and evening Pain Aggravating Factors Position,ADL's,Sitting,Bending Other Pain Aggravating Factors laying supine/prone, driving, sitting (20 min), shoes/socks Pain Alleviating Factors Position Other Pain Alleviating Factors movement, laying L side (with L hip ER) Home Pain Medication Use Pain Medications Used No PT-OP-D Balance Start: 11/15/23 07:28 Freq: Status: Active Protocol: Document 11/15/23 08:15 NM (Rec: 11/15/23 12:38 NM [id number]) Balance Tests Single Limb Standing Single Limb- Right 30 sec, no pain Single Limb- Left 30 sec, no pain Tandem Tandem Standing 15 seconds, no pain PT-OP-E Functional Tests Start: 11/15/23 07:28 Freq: Status: Active Protocol: Document 11/15/23 08:15 NM (Rec: 11/15/23 12:38 NM [id number]) Functional Tests Squat Test Score 5 Comments pain w ant hip; LLE shift, L trunk rotated up, pronates, knee valgus Other Forward Lumbar Flexion Test Name of Test measured finger tip to floor Score 0.5 Comment straight leg PT-OP-F Manual Assessment Start: 11/15/23 07:28 Freq: Status: Active Protocol: Document 11/15/23 08:15 NM (Rec: 11/15/23 12:38 NM [id number]) Manual Assessments Soft Tissue Assessment Soft Tissue Mobility Assessment Increased hip flexor tightness , increased tone in lumbar spine paraspinals Joint Mobility Assessment Joint Mobility Assessment Reproducible clicking of R anterior hip with testing. Decreased R hip rotation into ER/IR in supine and sitting, R >L. Tenderness along R L5, PSIS (R>L) with P-A springing of lumbar spine PT-OP-G Mobility & Gait Start: 11/15/23 07:28 Freq: Status: Active Protocol: Document 11/15/23 08:15 NM (Rec: 11/15/23 12:38 NM [id number]) OP Gait Assessment Gait Gait Assistance Required: Independent Distance (Feet) 150 Factors Limiting Gait Function Factors Limiting Gait Function Pain Comments Gait Comments pronation, antalgic PT-OP-H Neuro Start: 11/15/23 07:28 Freq: Status: Active Protocol: Document 11/15/23 08:15 NM (Rec: 11/15/23 12:38 NM [id number]) Sensation Evaluation Comments Summary Comments BLE intact to light touch sensation equally PT-OP-J Posture/Palpation/Skin Start: 11/15/23 07:28 Freq: Status: Active Protocol: Document 11/15/23 08:15 NM (Rec: 11/15/23 12:38 NM [id number]) Posture Evaluation Position Standing Head/C-Spine Posture Forward Head L-Spine Posture Increased Lordosis Pelvis Posture Anteriorly Tilted Weight Distribution Weight Shifted Left Hip Posture (L) Externally Rotated,(R) Externally Rotated Knee Posture (L) Genu Valgus,(R) Genu Valgus Patellar Posture (L) Superior,(R) Superior Ankle/Foot Posture (L) Pronated,(R) Pronated Palpation Assessment Location R hip Palpation Location groin, hip flexors, adductors Palpation Findings Soft Tissue Tightness, Tenderness Palpation Details Tenderness in R groin, anteriorly. Hip flexor tightness lumbar spine Palpation Location PSIS, SIJ, L1-L5, paraspinals, glutes Palpation Findings Soft Tissue Tightness, Tenderness Palpation Details Tenderness along R L5, PSIS (R >L). Increased tone and tightness along B paraspinals, R>L. No restrictions of gluteal area. No tenderness B SIJ PT-OP-K Range of Motion Start: 11/15/23 07:28 Freq: Status: Active Protocol: Document 11/15/23 08:15 NM (Rec: 11/15/23 12:38 NM [id number]) Lumbar Spine Range of Motion Lumbar Spine Active Percentage Flexion 100 Extension 10 Rotation Left 3 Rotation Right 3 Lateral Flexion Left 75 Lateral Flexion Right 50 ROM Limitations Soft Tissue Tightness,Pain Comments Moderate pain with extension, R side bend. Reports soft tissue tightness of B paraspinals with lateral flexion. Min pain with fwd trunk flexion, but able to reach floor with straight leg (pain initiated at 25% AROM) Hip Goniometric Range of Motion Hip Right Flexion w/Knee Flexed 105 Extension 10 Abduction 25 Internal Rotation 28 External Rotation 14 Left Flexion w/Knee Flexed 108 Extension 10 Abduction 25 Internal Rotation 35 External Rotation 25 Knee Goniometric Range of Motion Knee ROM Limitations Comments full AROM Ankle and Foot Goniometric Range of Motion Ankle and Foot ROM Limitations Comments Observable decrease ankle dorsiflexion, not formally measured due to time PT-OP-L Special Tests Start: 11/15/23 07:28 Freq: Status: Active Protocol: Document 11/15/23 08:15 NM (Rec: 11/15/23 12:38 NM [id number]) Special Tests Lumbar Spine Special Tests SIJ posterior gapping Test Results - SIJ thigh thrust Test Results - SIJ anterior gapping Test Results - Straight Leg Raise Test Results - Distraction Test Results + Khoury/Quadrant Test Results + Comments local L pain Hip Special Tests Anterior Labral Test Test Results + NATALIE Test Results + Comments anterior groin pain FADIR Test Results + Comments ant groin pain scour Test Results + PT-OP-M Strength Start: 11/15/23 07:28 Freq: Status: Active Protocol: Document 11/15/23 08:15 NM (Rec: 11/15/23 12:38 NM [id number]) Trunk Strength Trunk Manual Muscle Testing Flexion 3 Fair Extension 4 Good Rotation Left 4 Good Rotation Right 4 Good Lateral Flexion Left 4 Good Lateral Flexion Right 4 Good Comments No pain with resisted motion except resisted flexion Hip Strength Hip Manual Muscle Testing Right Flexion (L2) 4 Good Extension (S1) 4 Good Abduction 4- Good- Adduction 4 Good External Rotation 4 Good Internal Rotation 4 Good Comments No pain with resisted testing Left Flexion (L2) 4 Good Extension (S1) 4 Good Abduction 4 Good Adduction 4 Good External Rotation 4 Good Internal Rotation 4 Good Knee Strength Knee Manual Muscle Testing Right Flexion (S2) 4+ Good+ Extension (L3) 4+ Good+ Left Flexion (S2) 4+ Good+ Extension (L3) 4+ Good+ Ankle/Foot Strength Ankle and Foot Manual Muscle Testing Right Dorsiflexion (L4) 4+ Good+ Plantarflexion (S1) 4+ Good+ Left Dorsiflexion (L4) 4+ Good+ Plantarflexion (S1) 4+ Good+ PT-OP-T Assessment and Plan Start: 11/15/23 07:28 Freq: Status: Active Protocol: Document 11/15/23 08:15 NM (Rec: 11/15/23 12:38 NM [id number]) Physical Therapy Assessment Rehab Potential Rehabilitation Potential Good Evaluation Complexity Number of Personal Factors/Comorbidities 1-2 Number of Body Systems Impaired 3 Clinical Presentation at Evaluation Stable Impairments Impairments Activity Tolerance,Balance, Edema,Functional Activities, Functional Mobility,Gait, Integument,Pain,Posture,ROM, Sensation,Soft Tissue Mobility ,Strength,Tone Goals Five Impairment hip strength Impairment B hip strength 4/5 MMT for all except R hip abd 4-/5 MMT Assisted Goal (LTG) Pt will increase B global hip strength to at least 4+/5 MMT in order to demonstrate improved hip strength for ADLs and activity LTG Duration 10 weeks Four Impairment core stability Impairment 3/5 MMT for trunk flexion, 4/5 MMT for trunk extension Assisted Goal (LTG) Pt will demonstrate improved core stability by performing at least 8 bird dogs without compensation LTG Duration 10 weeks Three Impairment HEP Impairment not performing HEP or daily exercise Short Term Goal (STG) Pt will report compliance with HEP at least 2-3x/wk in order to maximize progress made during PT and for carryover STG Duration 5 weeks Assisted Goal (LTG) Pt will report compliance with HEP at least 3x/wk in order to demonstrate transition to independent exercise upon discharge from PT LTG Duration 10 weeks Two Impairment activity, function Impairment squat Short Term Goal (STG) Pt will perform at least 5 bilateral squats with equal weight bearing and without compensation in order to demonstrate improved activity tolerance and ability to perform ADLs. STG Duration 5 weeks Morale Officer Goal (LTG) Pt will perform at least 10 bilateral squats with equal weight bearing and without compensation in order to demonstrate improved activity tolerance and ability to perform ADLs. LTG Duration 10 weeks One Impairment oswestry Impairment 14/50 Morale Officer Goal (LTG) Pt will decrease Oswestry score <14/50 in order to demonstrate improved activity tolerance and QOL LTG Duration 10 weeks Assessment Summary Assessment Pt is a 37 y.o. female presenting with lumbar spine and R hip pain beginning several years ago after falling down the stairs. Recent imaging reveals no lumbar spine fracture but indicates L5-S1 disc degeneration, MRI shows anterior labral tear of R hip. Symptoms are consistent with imaging. Pt has already been referred to orthopedic surgeon for both conditions and is waiting for her upcoming appointments. 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 She reports pain with sitting, ADLs, lying supine or prone, and lumbar extension; her pain can be reduced with standing and walking. Pt has decreased R hip IR/ER and hip flexion AROM; pain with end range hip flexion, IR only. Pt 's R hip flexion, IR, and ER is limited compared to L hip; hip ER is most limited. Pt also has slight limitations in R hip abduction strength, but no pain with any resisted motion. Lumbar spine AROM is limited globally due to pain with most restriction into extension and lateral flexion. Extension is most painful, although pt reports no pain with standing/walking/movement . Pt has positive local pain for Khoury/Quadrant test and relief with lumbar distraction ; negative straight leg raise test. PT educated on exam findings and POC; pt verbalizes agreement. Despite referral for wrist, pt is not wanting care for wrist at this time because she reports that it is improving. Pt is requesting to try conservative care prior to upcoming appointments with surgeons. Unless otherwise recommended, pt would benefit from skilled PT for hip and lumbar stabilization and education regarding activity modification in order to decrease pain symptoms and improve activity tolerance. Physical Therapy Plan Frequency and Duration Frequency of Treatment 2x/Week Duration of treatment (weeks) 10 Plan of Care Start Date 11/15/23 Plan of Care End Date 01/26/24 Therapeutic Interventions Therapeutic Interventions Balance Training,Coordination Training,Gait Training,Home Exercise Program,Joint Mobilizations,Manual Therapy, Neuromuscular Re-education, Orthotic/Prosthetic Management ,Patient/Caregiver Education, Self-Care/Home Management, Sensory Integration,Soft Tissue Mobilization,Taping, Therapeutic Activities, Therapeutic Exercises Modalities Biofeedback,Cold Pack/Ice Massage,Electric Stimulation, Hot Packs,Ultrasound, Vasopneumatic Devices Other Therapeutic Interventions Manual traction Next Visit Focus/Plan Next Note Type Treatment Note Next Visit Plan hip mobilizations, STM lumbar flexion bias strengthening
--- NOTE | 2023-11-20 08:11 | PT.OTN ---
Current Diagnoses Pain in right wrist (11/20/23) Pain in right hip (11/20/23) Low back pain, unspecified (11/20/23) Weakness (11/20/23) Physical Therapy Treatment Note PT-OP-A Visit Information Start: 11/15/23 07:28 Freq: Status: Active Protocol: Document 11/20/23 07:31 SP (Rec: 11/20/23 09:20 SP [id number]) Out-Patient Physical Therapy Visit Information Visit Information Visit Type Treatment Note Visit Note 24 visits max Visit Start Time 07:31 Visit Stop Time 08:11 Visit Number 2 Number of [employer]EL[employer] Visits 1 Evaluation Information Evaluation Date 11/15/23 PT-OP-B Current Condition Start: 11/15/23 07:28 Freq: Status: Active Protocol: Document 11/15/23 08:15 NM (Rec: 11/15/23 12:38 NM [id number]) Current Condition History of Current Condition Onset Date November 2020 Current Complaints mobility, ROM, pain, decreased activity History of Current Condition Pt presents with R hip, lumbar spine, and L wrist pain. Symptoms began in November 2020, she fell down stairs from their trailer landing on her back, she went to ED. She fracture coccyx at that time with no other fractures in fall but did not have any follows up. Currently no coccyx pain. 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 She reports that she is unable to get out of bed sometimes due to low back pain. Occasionally she sees chiropractor, but only has short term relief. She is unable to sit cross legged due to limited hip mobility. Pt has a referral to orthopedic surgeon for her hip on 12/13 and is waiting on her referral for her spine. MRI shows labral tear. She would prefer to treat both lumbar spine and hip until surgeons determine if she is a candidate for surgery. 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 Prior Treatments and Tests Fell 07/27 on L wrist Hx of broken arms, volar fall; doesn 't want to work on for PT MRI 10/28: Labral tear R hip Radiographs 10/28: L5-S1 disc degeneration, no pelvis bony abnormalities PT-OP-C Subjective Start: 11/15/23 07:28 Freq: Status: Active Protocol: Document 11/20/23 07:31 SP (Rec: 11/20/23 09:20 SP [id number]) OP-PT Subjective Patient Comments Patient Comments Pt reports wakes up with dull ache like glue across B SI, not really pain. She does alot of bending/twisting with cleaning job. PT-OP-D Balance Start: 11/15/23 07:28 Freq: Status: Active Protocol: Document 11/15/23 08:15 NM (Rec: 11/15/23 12:38 NM [id number]) Balance Tests Single Limb Standing Single Limb- Right 30 sec, no pain Single Limb- Left 30 sec, no pain Tandem Tandem Standing 15 seconds, no pain PT-OP-E Functional Tests Start: 11/15/23 07:28 Freq: Status: Active Protocol: Document 11/15/23 08:15 NM (Rec: 11/15/23 12:38 NM [id number]) Functional Tests Squat Test Score 5 Comments pain w ant hip; LLE shift, L trunk rotated up, pronates, knee valgus Other Forward Lumbar Flexion Test Name of Test measured finger tip to floor Score 0.5 Comment straight leg PT-OP-F Manual Assessment Start: 11/15/23 07:28 Freq: Status: Active Protocol: Document 11/15/23 08:15 NM (Rec: 11/15/23 12:38 NM [id number]) Manual Assessments Soft Tissue Assessment Soft Tissue Mobility Assessment Increased hip flexor tightness , increased tone in lumbar spine paraspinals Joint Mobility Assessment Joint Mobility Assessment Reproducible clicking of R anterior hip with testing. Decreased R hip rotation into ER/IR in supine and sitting, R >L. Tenderness along R L5, PSIS (R>L) with P-A springing of lumbar spine PT-OP-G Mobility & Gait Start: 11/15/23 07:28 Freq: Status: Active Protocol: Document 11/15/23 08:15 NM (Rec: 11/15/23 12:38 NM [id number]) OP Gait Assessment Gait Gait Assistance Required: Independent Distance (Feet) 150 Factors Limiting Gait Function Factors Limiting Gait Function Pain Comments Gait Comments pronation, antalgic PT-OP-H Neuro Start: 11/15/23 07:28 Freq: Status: Active Protocol: Document 11/15/23 08:15 NM (Rec: 11/15/23 12:38 NM [id number]) Sensation Evaluation Comments Summary Comments BLE intact to light touch sensation equally PT-OP-J Posture/Palpation/Skin Start: 11/15/23 07:28 Freq: Status: Active Protocol: Document 11/15/23 08:15 NM (Rec: 11/15/23 12:38 NM [id number]) Posture Evaluation Position Standing Head/C-Spine Posture Forward Head L-Spine Posture Increased Lordosis Pelvis Posture Anteriorly Tilted Weight Distribution Weight Shifted Left Hip Posture (L) Externally Rotated,(R) Externally Rotated Knee Posture (L) Genu Valgus,(R) Genu Valgus Patellar Posture (L) Superior,(R) Superior Ankle/Foot Posture (L) Pronated,(R) Pronated Palpation Assessment Location R hip Palpation Location groin, hip flexors, adductors Palpation Findings Soft Tissue Tightness, Tenderness Palpation Details Tenderness in R groin, anteriorly. Hip flexor tightness lumbar spine Palpation Location PSIS, SIJ, L1-L5, paraspinals, glutes Palpation Findings Soft Tissue Tightness, Tenderness Palpation Details Tenderness along R L5, PSIS (R >L). Increased tone and tightness along B paraspinals, R>L. No restrictions of gluteal area. No tenderness B SIJ PT-OP-K Range of Motion Start: 11/15/23 07:28 Freq: Status: Active Protocol: Document 11/15/23 08:15 NM (Rec: 11/15/23 12:38 NM [id number]) Lumbar Spine Range of Motion Lumbar Spine Active Percentage Flexion 100 Extension 10 Rotation Left 3 Rotation Right 3 Lateral Flexion Left 75 Lateral Flexion Right 50 ROM Limitations Soft Tissue Tightness,Pain Comments Moderate pain with extension, R side bend. Reports soft tissue tightness of B paraspinals with lateral flexion. Min pain with fwd trunk flexion, but able to reach floor with straight leg (pain initiated at 25% AROM) Hip Goniometric Range of Motion Hip Right Flexion w/Knee Flexed 105 Extension 10 Abduction 25 Internal Rotation 28 External Rotation 14 Left Flexion w/Knee Flexed 108 Extension 10 Abduction 25 Internal Rotation 35 External Rotation 25 Knee Goniometric Range of Motion Knee ROM Limitations Comments full AROM Ankle and Foot Goniometric Range of Motion Ankle and Foot ROM Limitations Comments Observable decrease ankle dorsiflexion, not formally measured due to time PT-OP-L Special Tests Start: 11/15/23 07:28 Freq: Status: Active Protocol: Document 11/15/23 08:15 NM (Rec: 11/15/23 12:38 NM [id number]) Special Tests Lumbar Spine Special Tests SIJ posterior gapping Test Results - SIJ thigh thrust Test Results - SIJ anterior gapping Test Results - Straight Leg Raise Test Results - Distraction Test Results + Khoury/Quadrant Test Results + Comments local L pain Hip Special Tests Anterior Labral Test Test Results + NATALIE Test Results + Comments anterior groin pain FADIR Test Results + Comments ant groin pain scour Test Results + PT-OP-M Strength Start: 11/15/23 07:28 Freq: Status: Active Protocol: Document 11/15/23 08:15 NM (Rec: 11/15/23 12:38 NM [id number]) Trunk Strength Trunk Manual Muscle Testing Flexion 3 Fair Extension 4 Good Rotation Left 4 Good Rotation Right 4 Good Lateral Flexion Left 4 Good Lateral Flexion Right 4 Good Comments No pain with resisted motion except resisted flexion Hip Strength Hip Manual Muscle Testing Right Flexion (L2) 4 Good Extension (S1) 4 Good Abduction 4- Good- Adduction 4 Good External Rotation 4 Good Internal Rotation 4 Good Comments No pain with resisted testing Left Flexion (L2) 4 Good Extension (S1) 4 Good Abduction 4 Good Adduction 4 Good External Rotation 4 Good Internal Rotation 4 Good Knee Strength Knee Manual Muscle Testing Right Flexion (S2) 4+ Good+ Extension (L3) 4+ Good+ Left Flexion (S2) 4+ Good+ Extension (L3) 4+ Good+ Ankle/Foot Strength Ankle and Foot Manual Muscle Testing Right Dorsiflexion (L4) 4+ Good+ Plantarflexion (S1) 4+ Good+ Left Dorsiflexion (L4) 4+ Good+ Plantarflexion (S1) 4+ Good+ PT-OP-Q Treatments Start: 11/15/23 07:28 Freq: Status: Active Protocol: Document 11/20/23 07:31 SP (Rec: 11/20/23 09:20 SP [id number]) Therapeutic Exercises Supine Exercises resisted clamshell Supine Exercise Name added to HEP Side bilateral Resistance TB #2 Reps/Minutes 2x10 Comments cued level pelvis, slower eccentric control decreased shakiness, TA&PPT TA heel slide Supine Exercise Name DL- added to HEP Resistance AROM Equipment Used [employer] tactile cued post back for PPT Reps/Minutes 2x10 Comments cued increase PPT, able slide TA trng Supine Exercise Name ad draw in, PPT Reps/Minutes 5 SH x10 Sidelying Exercises clamshell/reverse clamshell Sidelying Exercise Name added to HEP Side bilateral Resistance AROM Reps/Minutes 2x10 each Comments cued painfree range R clamshell no SI/groin, eccentric control, muscle tire hip abd Sidelying Exercise Name added to HEP Side bilateral Resistance AROM Equipment Used use top arm for kickstand for sidelying pos A Reps/Minutes 2x10 Comments cued stacked alignment, TA, good lift/lower, lessens wobble Other Exercises self STMs Other Exercise Name verbal review- not performed- glut/hip ER, ITB, ES Side bilateral Resistance R>L Equipment Used ball wall, rolling pin/foam roller Comments ed during manual self STMs tightness Manual Therapy Treatment Soft Tissue Mobilization hip Body Location R piriformis, Glut med (prox> distal), TFL, psoas, Iliacus Mobilization Type Strumming,Sustained Pressure, Other Intensity/Depth Moderate Comments manual STMs, MWM /c breath and hip IR&ER, limited ER on R and discomfort end feel over groin area. LS Body Location R>L: ES, QL Mobilization Type Rolling,Strumming,Sustained Pressure,Other Comments sensitive over distal ES and QL, improved decreased tension /c feedback pressure, ed/ review use of ball wall and stated used in her past. Self-Care/Home Management Treatment Education Patient Education Home Exercise Program,Pain Management Other Education ed self STMs ball wall QL, ES, ITB. Time spent education of anatomy, review MMT at eval areas weakness initate strengthening and assist flexibility. PT-OP-T Assessment and Plan Start: 11/15/23 07:28 Freq: Status: Active Protocol: Document 11/20/23 07:31 SP (Rec: 11/20/23 09:20 SP [id number]) Physical Therapy Assessment Goals Five Impairment hip strength Impairment B hip strength 4/5 MMT for all except R hip abd 4-/5 MMT Nursing Home Goal (LTG) Pt will increase B global hip strength to at least 4+/5 MMT in order to demonstrate improved hip strength for ADLs and activity LTG Duration 10 weeks Four Impairment core stability Impairment 3/5 MMT for trunk flexion, 4/5 MMT for trunk extension Short Filler Bunch Machine Operator Goal (LTG) Pt will demonstrate improved core stability by performing at least 8 bird dogs without compensation LTG Duration 10 weeks Three Impairment HEP Impairment not performing HEP or daily exercise Short Term Goal (STG) Pt will report compliance with HEP at least 2-3x/wk in order to maximize progress made during PT and for carryover STG Duration 5 weeks Nursing Home Goal (LTG) Pt will report compliance with HEP at least 3x/wk in order to demonstrate transition to independent exercise upon discharge from PT LTG Duration 10 weeks Two Impairment activity, function Impairment squat Short Term Goal (STG) Pt will perform at least 5 bilateral squats with equal weight bearing and without compensation in order to demonstrate improved activity tolerance and ability to perform ADLs. STG Duration 5 weeks Short Filler Bunch Machine Operator Goal (LTG) Pt will perform at least 10 bilateral squats with equal weight bearing and without compensation in order to demonstrate improved activity tolerance and ability to perform ADLs. LTG Duration 10 weeks One Impairment oswestry Impairment 14/50 Short Filler Bunch Machine Operator Goal (LTG) Pt will decrease Oswestry score <14/50 in order to demonstrate improved activity tolerance and QOL LTG Duration 10 weeks Assessment Summary Assessment Pt required verbal and tactile cues for TA and PPT positioning maintaining during ther ex which supported spinal and pelvis stabilization, with ed painfree range. Pt made modifications in AROM not end range R hip ER comfort and use top arm front on table during ABD for self feedback alignment simple and suprised muscle tiring. Pt would benefit from additive flexibility to HEP next tx. Physical Therapy Plan Frequency and Duration Frequency of Treatment 2x/Week Duration of treatment (weeks) 10 Plan of Care Start Date 11/15/23 Plan of Care End Date 01/26/24 Therapeutic Interventions Therapeutic Interventions Balance Training,Coordination Training,Gait Training,Home Exercise Program,Joint Mobilizations,Manual Therapy, Neuromuscular Re-education, Orthotic/Prosthetic Management ,Patient/Caregiver Education, Self-Care/Home Management, Sensory Integration,Soft Tissue Mobilization,Taping, Therapeutic Activities, Therapeutic Exercises Modalities Biofeedback,Cold Pack/Ice Massage,Electric Stimulation, Hot Packs,Ultrasound, Vasopneumatic Devices Other Therapeutic Interventions Manual traction Next Visit Focus/Plan Next Note Type Treatment Note Next Visit Plan REviewe HEP: supine resisted clamshell, DL heel slide, side clam/reverse clamshell. Next tx: kiana stretch, child's pose. POC: hip mobilizations, STM lumbar flexion bias strengthening
--- NOTE | 2023-11-27 15:47 | PT.OTN ---
Current Diagnoses Pain in right wrist (11/27/23) Pain in right hip (11/27/23) Low back pain, unspecified (11/27/23) Weakness (11/27/23) Physical Therapy Treatment Note PT-OP-A Visit Information Start: 11/15/23 07:28 Freq: Status: Active Protocol: Document 11/27/23 12:55 AB (Rec: 11/27/23 15:47 AB [id number]) Out-Patient Physical Therapy Visit Information Visit Information Visit Type Treatment Note Visit Note 24 visits max Visit Start Time 14:33 Visit Stop Time 15:21 Visit Number 3 Number of RAPID OUTSOLE STITCHER Visits 1 Evaluation Information Evaluation Date 11/15/23 PT-OP-B Current Condition Start: 11/15/23 07:28 Freq: Status: Active Protocol: Document 11/15/23 08:15 NM (Rec: 11/15/23 12:38 NM [id number]) Current Condition History of Current Condition Onset Date November 2020 Current Complaints mobility, ROM, pain, decreased activity History of Current Condition Pt presents with R hip, lumbar spine, and L wrist pain. Symptoms began in November 2020, she fell down stairs from their trailer landing on her back, she went to ED. She fracture coccyx at that time with no other fractures in fall but did not have any follows up. Currently no coccyx pain. 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 She reports that she is unable to get out of bed sometimes due to low back pain. Occasionally she sees chiropractor, but only has short term relief. She is unable to sit cross legged due to limited hip mobility. Pt has a referral to orthopedic surgeon for her hip on 12/13 and is waiting on her referral for her spine. MRI shows labral tear. She would prefer to treat both lumbar spine and hip until surgeons determine if she is a candidate for surgery. 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 Prior Treatments and Tests Fell 07/27 on L wrist Hx of broken arms, volar fall; doesn 't want to work on for PT MRI 10/28: Labral tear R hip Radiographs 10/28: L5-S1 disc degeneration, no pelvis bony abnormalities PT-OP-C Subjective Start: 11/15/23 07:28 Freq: Status: Active Protocol: Document 11/27/23 12:55 AB (Rec: 11/27/23 15:47 AB [id number]) OP-PT Subjective Patient Comments Patient Comments Patient reports she is the same. PT-OP-D Balance Start: 11/15/23 07:28 Freq: Status: Active Protocol: Document 11/15/23 08:15 NM (Rec: 11/15/23 12:38 NM [id number]) Balance Tests Single Limb Standing Single Limb- Right 30 sec, no pain Single Limb- Left 30 sec, no pain Tandem Tandem Standing 15 seconds, no pain PT-OP-E Functional Tests Start: 11/15/23 07:28 Freq: Status: Active Protocol: Document 11/15/23 08:15 NM (Rec: 11/15/23 12:38 NM [id number]) Functional Tests Squat Test Score 5 Comments pain w ant hip; LLE shift, L trunk rotated up, pronates, knee valgus Other Forward Lumbar Flexion Test Name of Test measured finger tip to floor Score 0.5 Comment straight leg PT-OP-F Manual Assessment Start: 11/15/23 07:28 Freq: Status: Active Protocol: Document 11/15/23 08:15 NM (Rec: 11/15/23 12:38 NM [id number]) Manual Assessments Soft Tissue Assessment Soft Tissue Mobility Assessment Increased hip flexor tightness , increased tone in lumbar spine paraspinals Joint Mobility Assessment Joint Mobility Assessment Reproducible clicking of R anterior hip with testing. Decreased R hip rotation into ER/IR in supine and sitting, R >L. Tenderness along R L5, PSIS (R>L) with P-A springing of lumbar spine PT-OP-G Mobility & Gait Start: 11/15/23 07:28 Freq: Status: Active Protocol: Document 11/15/23 08:15 NM (Rec: 11/15/23 12:38 NM [id number]) OP Gait Assessment Gait Gait Assistance Required: Independent Distance (Feet) 150 Factors Limiting Gait Function Factors Limiting Gait Function Pain Comments Gait Comments pronation, antalgic PT-OP-H Neuro Start: 11/15/23 07:28 Freq: Status: Active Protocol: Document 11/15/23 08:15 NM (Rec: 11/15/23 12:38 NM [id number]) Sensation Evaluation Comments Summary Comments BLE intact to light touch sensation equally PT-OP-J Posture/Palpation/Skin Start: 11/15/23 07:28 Freq: Status: Active Protocol: Document 11/15/23 08:15 NM (Rec: 11/15/23 12:38 NM [id number]) Posture Evaluation Position Standing Head/C-Spine Posture Forward Head L-Spine Posture Increased Lordosis Pelvis Posture Anteriorly Tilted Weight Distribution Weight Shifted Left Hip Posture (L) Externally Rotated,(R) Externally Rotated Knee Posture (L) Genu Valgus,(R) Genu Valgus Patellar Posture (L) Superior,(R) Superior Ankle/Foot Posture (L) Pronated,(R) Pronated Palpation Assessment Location R hip Palpation Location groin, hip flexors, adductors Palpation Findings Soft Tissue Tightness, Tenderness Palpation Details Tenderness in R groin, anteriorly. Hip flexor tightness lumbar spine Palpation Location PSIS, SIJ, L1-L5, paraspinals, glutes Palpation Findings Soft Tissue Tightness, Tenderness Palpation Details Tenderness along R L5, PSIS (R >L). Increased tone and tightness along B paraspinals, R>L. No restrictions of gluteal area. No tenderness B SIJ PT-OP-K Range of Motion Start: 11/15/23 07:28 Freq: Status: Active Protocol: Document 11/15/23 08:15 NM (Rec: 11/15/23 12:38 NM [id number]) Lumbar Spine Range of Motion Lumbar Spine Active Percentage Flexion 100 Extension 10 Rotation Left 3 Rotation Right 3 Lateral Flexion Left 75 Lateral Flexion Right 50 ROM Limitations Soft Tissue Tightness,Pain Comments Moderate pain with extension, R side bend. Reports soft tissue tightness of B paraspinals with lateral flexion. Min pain with fwd trunk flexion, but able to reach floor with straight leg (pain initiated at 25% AROM) Hip Goniometric Range of Motion Hip Right Flexion w/Knee Flexed 105 Extension 10 Abduction 25 Internal Rotation 28 External Rotation 14 Left Flexion w/Knee Flexed 108 Extension 10 Abduction 25 Internal Rotation 35 External Rotation 25 Knee Goniometric Range of Motion Knee ROM Limitations Comments full AROM Ankle and Foot Goniometric Range of Motion Ankle and Foot ROM Limitations Comments Observable decrease ankle dorsiflexion, not formally measured due to time PT-OP-L Special Tests Start: 11/15/23 07:28 Freq: Status: Active Protocol: Document 11/15/23 08:15 NM (Rec: 11/15/23 12:38 NM [id number]) Special Tests Lumbar Spine Special Tests SIJ posterior gapping Test Results - SIJ thigh thrust Test Results - SIJ anterior gapping Test Results - Straight Leg Raise Test Results - Distraction Test Results + Khoury/Quadrant Test Results + Comments local L pain Hip Special Tests Anterior Labral Test Test Results + NATALIE Test Results + Comments anterior groin pain FADIR Test Results + Comments ant groin pain scour Test Results + PT-OP-M Strength Start: 11/15/23 07:28 Freq: Status: Active Protocol: Document 11/15/23 08:15 NM (Rec: 11/15/23 12:38 NM [id number]) Trunk Strength Trunk Manual Muscle Testing Flexion 3 Fair Extension 4 Good Rotation Left 4 Good Rotation Right 4 Good Lateral Flexion Left 4 Good Lateral Flexion Right 4 Good Comments No pain with resisted motion except resisted flexion Hip Strength Hip Manual Muscle Testing Right Flexion (L2) 4 Good Extension (S1) 4 Good Abduction 4- Good- Adduction 4 Good External Rotation 4 Good Internal Rotation 4 Good Comments No pain with resisted testing Left Flexion (L2) 4 Good Extension (S1) 4 Good Abduction 4 Good Adduction 4 Good External Rotation 4 Good Internal Rotation 4 Good Knee Strength Knee Manual Muscle Testing Right Flexion (S2) 4+ Good+ Extension (L3) 4+ Good+ Left Flexion (S2) 4+ Good+ Extension (L3) 4+ Good+ Ankle/Foot Strength Ankle and Foot Manual Muscle Testing Right Dorsiflexion (L4) 4+ Good+ Plantarflexion (S1) 4+ Good+ Left Dorsiflexion (L4) 4+ Good+ Plantarflexion (S1) 4+ Good+ PT-OP-Q Treatments Start: 11/15/23 07:28 Freq: Status: Active Protocol: Document 11/27/23 12:55 AB (Rec: 11/27/23 15:47 AB [id number]) Therapeutic Exercises Supine Exercises breathing from diaphragm in modified restorative pose Reps/Minutes 3 minutes Comments verbal cues for breathing from diaphragm hip flexor stretch edge of bed Side bilateral Reps/Minutes X1X2 each LE Comments not dillon on first trial, good dillon post manual therapy resisted clamshell Supine Exercise Name added to HEP Side bilateral Resistance TB #2 Reps/Minutes X10 Comments cued level pelvis, slower eccentric control decreased shakiness, TA&PPT Manual Therapy Treatment Soft Tissue Mobilization hip Body Location bilateral glute/piriformis Mobilization Type Cross-Friction,Rolling Intensity/Depth Moderate Body Position Sidelying Comments monitored for pain LS Body Location lumbar paraspinals Mobilization Type Sustained Pressure Intensity/Depth Moderate Comments monitored for pain Joint Mobilizations lateral right hip Joint right hip Direction lateral Grade IV Body Position Hooklying Reps/Duration 5X 5 Comments monitored for pain Taping for pain and posture Body Location SI to upper thoracic Treatment Focus pain and posture Type of Tape Kinesio Tape Skin Inspection WNL Comments Pt ed to remove tape in 3-5 days or immediately if skin irritation occurs Manual Techniques MET for right AI left PI and pubic shotgun Reps/Duration 6X6 seconds each Self-Care/Home Management Treatment Education Other Education Discussed sleeping sidelying with pillow between knees Activities Self-Care/Home Management Activities breathing from diaphragm while in modified restorative pose added to HEP PT-OP-T Assessment and Plan Start: 11/15/23 07:28 Freq: Status: Active Protocol: Document 11/27/23 12:55 AB (Rec: 11/27/23 15:47 AB [id number]) Physical Therapy Assessment Goals Five Impairment hip strength Impairment B hip strength 4/5 MMT for all except R hip abd 4-/5 MMT Financial Services Representative Goal (LTG) Pt will increase B global hip strength to at least 4+/5 MMT in order to demonstrate improved hip strength for ADLs and activity LTG Duration 10 weeks Four Impairment core stability Impairment 3/5 MMT for trunk flexion, 4/5 MMT for trunk extension Correction Goal (LTG) Pt will demonstrate improved core stability by performing at least 8 bird dogs without compensation LTG Duration 10 weeks Three Impairment HEP Impairment not performing HEP or daily exercise Short Term Goal (STG) Pt will report compliance with HEP at least 2-3x/wk in order to maximize progress made during PT and for carryover STG Duration 5 weeks Financial Services Representative Goal (LTG) Pt will report compliance with HEP at least 3x/wk in order to demonstrate transition to independent exercise upon discharge from PT LTG Duration 10 weeks Two Impairment activity, function Impairment squat Short Term Goal (STG) Pt will perform at least 5 bilateral squats with equal weight bearing and without compensation in order to demonstrate improved activity tolerance and ability to perform ADLs. STG Duration 5 weeks Correction Goal (LTG) Pt will perform at least 10 bilateral squats with equal weight bearing and without compensation in order to demonstrate improved activity tolerance and ability to perform ADLs. LTG Duration 10 weeks One Impairment oswestry Impairment 14/50 Financial Services Representative Goal (LTG) Pt will decrease Oswestry score <14/50 in order to demonstrate improved activity tolerance and QOL LTG Duration 10 weeks Assessment Summary Assessment visible increase in right hip during groin stretch ( butterfly stretch ) post manual therapy, but not get WNL and groin pain end ROM persists Physical Therapy Plan Frequency and Duration Frequency of Treatment 2x/Week Duration of treatment (weeks) 10 Plan of Care Start Date 11/15/23 Plan of Care End Date 01/26/24 Next Visit Focus/Plan Next Note Type Treatment Note Next Visit Plan REviewe HEP: supine resisted clamshell, DL heel slide, side clam/reverse clamshell. Next tx: revisit kiana stretch, and possibly groin stretch post manual therapy, trial of child's pose. POC: hip mobilizations, STM lumbar flexion bias strengthening, possibly hip extension with trunk leaning on counter
--- NOTE | 2023-12-11 12:54 | PT.OTN ---
Current Diagnoses Pain in right wrist (12/11/23) Pain in right hip (12/11/23) Low back pain, unspecified (12/11/23) Weakness (12/11/23) Physical Therapy Treatment Note PT-OP-A Visit Information Start: 11/15/23 07:28 Freq: Status: Active Protocol: Document 12/11/23 07:30 NM (Rec: 12/11/23 08:17 NM [id number]) Out-Patient Physical Therapy Visit Information Visit Information Visit Type Treatment Note Visit Note 24 visits max Visit Start Time 07:32 Visit Stop Time 08:15 Visit Number 6 PT-OP-B Current Condition Start: 11/15/23 07:28 Freq: Status: Active Protocol: Document 11/15/23 08:15 NM (Rec: 11/15/23 12:38 NM [id number]) Current Condition History of Current Condition Onset Date November 2020 Current Complaints mobility, ROM, pain, decreased activity History of Current Condition Pt presents with R hip, lumbar spine, and L wrist pain. Symptoms began in November 2020, she fell down stairs from their trailer landing on her back, she went to ED. She fracture coccyx at that time with no other fractures in fall but did not have any follows up. Currently no coccyx pain. 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 She reports that she is unable to get out of bed sometimes due to low back pain. Occasionally she sees chiropractor, but only has short term relief. She is unable to sit cross legged due to limited hip mobility. Pt has a referral to orthopedic surgeon for her hip on 12/13 and is waiting on her referral for her spine. MRI shows labral tear. She would prefer to treat both lumbar spine and hip until surgeons determine if she is a candidate for surgery. 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 Prior Treatments and Tests Fell 07/27 on L wrist Hx of broken arms, volar fall; doesn 't want to work on for PT MRI 10/28: Labral tear R hip Radiographs 10/28: L5-S1 disc degeneration, no pelvis bony abnormalities PT-OP-C Subjective Start: 11/15/23 07:28 Freq: Status: Active Protocol: Document 12/11/23 07:30 NM (Rec: 12/11/23 08:17 NM [id number]) OP-PT Subjective Patient Comments Patient Comments Pt reports that her back is doing better. Tape helped and helps pt wake up pain free. She has been massaging her hip flexors because tight, which also helps prior to exercise. No change in hip pain or symptoms. She goes to ortho on Wed for back and Th for hip. PT-OP-D Balance Start: 11/15/23 07:28 Freq: Status: Active Protocol: Document 11/15/23 08:15 NM (Rec: 11/15/23 12:38 NM [id number]) Balance Tests Single Limb Standing Single Limb- Right 30 sec, no pain Single Limb- Left 30 sec, no pain Tandem Tandem Standing 15 seconds, no pain PT-OP-E Functional Tests Start: 11/15/23 07:28 Freq: Status: Active Protocol: Document 11/15/23 08:15 NM (Rec: 11/15/23 12:38 NM [id number]) Functional Tests Squat Test Score 5 Comments pain w ant hip; LLE shift, L trunk rotated up, pronates, knee valgus Other Forward Lumbar Flexion Test Name of Test measured finger tip to floor Score 0.5 Comment straight leg PT-OP-F Manual Assessment Start: 11/15/23 07:28 Freq: Status: Active Protocol: Document 11/15/23 08:15 NM (Rec: 11/15/23 12:38 NM [id number]) Manual Assessments Soft Tissue Assessment Soft Tissue Mobility Assessment Increased hip flexor tightness , increased tone in lumbar spine paraspinals Joint Mobility Assessment Joint Mobility Assessment Reproducible clicking of R anterior hip with testing. Decreased R hip rotation into ER/IR in supine and sitting, R >L. Tenderness along R L5, PSIS (R>L) with P-A springing of lumbar spine PT-OP-G Mobility & Gait Start: 11/15/23 07:28 Freq: Status: Active Protocol: Document 11/15/23 08:15 NM (Rec: 11/15/23 12:38 NM [id number]) OP Gait Assessment Gait Gait Assistance Required: Independent Distance (Feet) 150 Factors Limiting Gait Function Factors Limiting Gait Function Pain Comments Gait Comments pronation, antalgic PT-OP-H Neuro Start: 11/15/23 07:28 Freq: Status: Active Protocol: Document 11/15/23 08:15 NM (Rec: 11/15/23 12:38 NM [id number]) Sensation Evaluation Comments Summary Comments BLE intact to light touch sensation equally PT-OP-J Posture/Palpation/Skin Start: 11/15/23 07:28 Freq: Status: Active Protocol: Document 11/15/23 08:15 NM (Rec: 11/15/23 12:38 NM [id number]) Posture Evaluation Position Standing Head/C-Spine Posture Forward Head L-Spine Posture Increased Lordosis Pelvis Posture Anteriorly Tilted Weight Distribution Weight Shifted Left Hip Posture (L) Externally Rotated,(R) Externally Rotated Knee Posture (L) Genu Valgus,(R) Genu Valgus Patellar Posture (L) Superior,(R) Superior Ankle/Foot Posture (L) Pronated,(R) Pronated Palpation Assessment Location R hip Palpation Location groin, hip flexors, adductors Palpation Findings Soft Tissue Tightness, Tenderness Palpation Details Tenderness in R groin, anteriorly. Hip flexor tightness lumbar spine Palpation Location PSIS, SIJ, L1-L5, paraspinals, glutes Palpation Findings Soft Tissue Tightness, Tenderness Palpation Details Tenderness along R L5, PSIS (R >L). Increased tone and tightness along B paraspinals, R>L. No restrictions of gluteal area. No tenderness B SIJ PT-OP-K Range of Motion Start: 11/15/23 07:28 Freq: Status: Active Protocol: Document 11/15/23 08:15 NM (Rec: 11/15/23 12:38 NM [id number]) Lumbar Spine Range of Motion Lumbar Spine Active Percentage Flexion 100 Extension 10 Rotation Left 3 Rotation Right 3 Lateral Flexion Left 75 Lateral Flexion Right 50 ROM Limitations Soft Tissue Tightness,Pain Comments Moderate pain with extension, R side bend. Reports soft tissue tightness of B paraspinals with lateral flexion. Min pain with fwd trunk flexion, but able to reach floor with straight leg (pain initiated at 25% AROM) Hip Goniometric Range of Motion Hip Right Flexion w/Knee Flexed 105 Extension 10 Abduction 25 Internal Rotation 28 External Rotation 14 Left Flexion w/Knee Flexed 108 Extension 10 Abduction 25 Internal Rotation 35 External Rotation 25 Knee Goniometric Range of Motion Knee ROM Limitations Comments full AROM Ankle and Foot Goniometric Range of Motion Ankle and Foot ROM Limitations Comments Observable decrease ankle dorsiflexion, not formally measured due to time PT-OP-L Special Tests Start: 11/15/23 07:28 Freq: Status: Active Protocol: Document 11/15/23 08:15 NM (Rec: 11/15/23 12:38 NM [id number]) Special Tests Lumbar Spine Special Tests SIJ posterior gapping Test Results - SIJ thigh thrust Test Results - SIJ anterior gapping Test Results - Straight Leg Raise Test Results - Distraction Test Results + Khoury/Quadrant Test Results + Comments local L pain Hip Special Tests Anterior Labral Test Test Results + NATALIE Test Results + Comments anterior groin pain FADIR Test Results + Comments ant groin pain scour Test Results + PT-OP-M Strength Start: 11/15/23 07:28 Freq: Status: Active Protocol: Document 11/15/23 08:15 NM (Rec: 11/15/23 12:38 NM [id number]) Trunk Strength Trunk Manual Muscle Testing Flexion 3 Fair Extension 4 Good Rotation Left 4 Good Rotation Right 4 Good Lateral Flexion Left 4 Good Lateral Flexion Right 4 Good Comments No pain with resisted motion except resisted flexion Hip Strength Hip Manual Muscle Testing Right Flexion (L2) 4 Good Extension (S1) 4 Good Abduction 4- Good- Adduction 4 Good External Rotation 4 Good Internal Rotation 4 Good Comments No pain with resisted testing Left Flexion (L2) 4 Good Extension (S1) 4 Good Abduction 4 Good Adduction 4 Good External Rotation 4 Good Internal Rotation 4 Good Knee Strength Knee Manual Muscle Testing Right Flexion (S2) 4+ Good+ Extension (L3) 4+ Good+ Left Flexion (S2) 4+ Good+ Extension (L3) 4+ Good+ Ankle/Foot Strength Ankle and Foot Manual Muscle Testing Right Dorsiflexion (L4) 4+ Good+ Plantarflexion (S1) 4+ Good+ Left Dorsiflexion (L4) 4+ Good+ Plantarflexion (S1) 4+ Good+ PT-OP-Q Treatments Start: 11/15/23 07:28 Freq: Status: Active Protocol: Document 12/11/23 07:30 NM (Rec: 12/11/23 08:17 NM [id number]) Therapeutic Exercises Supine Exercises bridge Supine Exercise Name trialed in PT Side bilateral Reps/Minutes 1x15 Comments pain free; with ppt and core stability hip flexor stretch edge of bed Supine Exercise Name kiana stretch Side bilateral Reps/Minutes 1x60 Comments post manual and taping TA trng Supine Exercise Name 1. BKFO, 2. hip extension, 3. hip flexion Side bilateral Resistance lvl 1 band around toe for #3 Reps/Minutes 1. 2x10, 2. 1x10 alt, 3. 1x10 with band Comments pain free for all but reports that she feels her hip tiring Prone Exercises child's pose Prone Exercise Name 1. rock backs IR quadruped, 2. quadruped ER rockback, 3. resisted IR Side bilateral Reps/Minutes 1. 1x10 with 2 hold ea, 2. 1x10 with 2 hold ea, 3. 2x10 Comments pain free hip/back for all, reports feels better than clam Sitting Exercises clam Sitting Exercise Name trialed in sitting for abd/hip ER Side bilateral Resistance lvl 2 teal tb Reps/Minutes 2x10 Comments pain free, feels better than sidelying clam Manual Therapy Treatment Soft Tissue Mobilization hip Body Location bilateral glute/piriformis, hip flexors Mobilization Type Cross-Friction,Rolling Intensity/Depth Moderate Body Position Sidelying Comments Tenderness in R hip flexor, minimal tenderness and restrictions in glutes/ piriformis. Mobilization with movement into hip ER/IR using reverse clams, during mobilization. Monitored for pain LS Body Location lumbar paraspinals Mobilization Type Oscillations,Sustained Pressure Intensity/Depth Moderate Body Position Sidelying Comments monitored for pain, performed in sidelying with rolling/ oscillation, then with L sidelying and L lateral flexion gapping for R tissue elongation Joint Mobilizations lateral right hip Joint right hip Direction lateral, inferior Grade IV Body Position Hooklying Reps/Duration 1x10 Comments monitored for pain, reports good feedback with lateral hip mobilizations Taping for pain and posture Body Location SI to upper thoracic Treatment Focus pain and posture Type of Tape Kinesio Tape Skin Inspection WNL Comments Reports good relief with taping prior to exercises. Skin assessed prior from last taping, intact without rash. Pt educated to remove tape in 3-5 days or immediately if skin irritation occurs Self-Care/Home Management Treatment Education Patient Education Home Exercise Program Other Education HEP: hip flexion, kiana stretch, hip IR rock back quadruped, hip IR quadruped, hip ER quadruped ER, clam seated PT-OP-T Assessment and Plan Start: 11/15/23 07:28 Freq: Status: Active Protocol: Document 12/11/23 07:30 NM (Rec: 12/11/23 08:17 NM [id number]) Physical Therapy Assessment Goals Five Impairment hip strength Impairment B hip strength 4/5 MMT for all except R hip abd 4-/5 MMT Custodial Goal (LTG) Pt will increase B global hip strength to at least 4+/5 MMT in order to demonstrate improved hip strength for ADLs and activity LTG Duration 10 weeks Four Impairment core stability Impairment 3/5 MMT for trunk flexion, 4/5 MMT for trunk extension Custodial Goal (LTG) Pt will demonstrate improved core stability by performing at least 8 bird dogs without compensation LTG Duration 10 weeks Three Impairment HEP Impairment not performing HEP or daily exercise Short Term Goal (STG) Pt will report compliance with HEP at least 2-3x/wk in order to maximize progress made during PT and for carryover STG Duration 5 weeks Custodial Goal (LTG) Pt will report compliance with HEP at least 3x/wk in order to demonstrate transition to independent exercise upon discharge from PT LTG Duration 10 weeks Two Impairment activity, function Impairment squat Short Term Goal (STG) Pt will perform at least 5 bilateral squats with equal weight bearing and without compensation in order to demonstrate improved activity tolerance and ability to perform ADLs. STG Duration 5 weeks Custodial Goal (LTG) Pt will perform at least 10 bilateral squats with equal weight bearing and without compensation in order to demonstrate improved activity tolerance and ability to perform ADLs. LTG Duration 10 weeks One Impairment oswestry Impairment 14/50 Detail Technician Goal (LTG) Pt will decrease Oswestry score <14/50 in order to demonstrate improved activity tolerance and QOL LTG Duration 10 weeks Assessment Summary Assessment Pt tolerated session well. She continues to have limitations in R hip mobility. However, she demos improved tolerance for hip IR/ER strengthening in sitting and quadruped over sidelying positions. Trialed quadruped rock backs and resisted hip IR. Cued for form and core contraction. Due to pt report of K tape helping, pt would benefit from additional lumbar stabilization. Demos good core activation with hip extension and flexion; trialed resisted hip flexion, which pt able to perform without increased hip symtoms. Pt reports good symptom relief in low back with K tape for stability. Manual treatment to address soft tissue restrictions of lumbar paraspinals and hips. Continued with hip inferior and lateral mobilizations to improve hip mobility; followed by dynamic stretching and hip strengthening. Trialed seated hip clams, which pt able to perform better than sidelying. Cued to remain in pain free range. Pt would benefit from skilled PT for B hip mobilization/strengthening and lumbar/core stabilization in order to decrease pain symptoms and improve activity tolerance. Physical Therapy Plan Frequency and Duration Frequency of Treatment 2x/Week Duration of treatment (weeks) 10 Plan of Care Start Date 11/15/23 Plan of Care End Date 01/26/24 Therapeutic Interventions Therapeutic Interventions Balance Training,Coordination Training,Gait Training,Home Exercise Program,Joint Mobilizations,Manual Therapy, Neuromuscular Re-education, Orthotic/Prosthetic Management ,Patient/Caregiver Education, Self-Care/Home Management, Sensory Integration,Soft Tissue Mobilization,Taping, Therapeutic Activities, Therapeutic Exercises Modalities Biofeedback,Cold Pack/Ice Massage,Electric Stimulation, Hot Packs,Ultrasound, Vasopneumatic Devices Other Therapeutic Interventions Manual traction Next Visit Focus/Plan Next Note Type Progress Note Next Visit Plan HS ajay, pallof press, squat, hip hinge and deadlift. Tape and manual REviewe HEP: supine resisted clamshell, DL heel slide, side clam/reverse clamshell. Next tx: revisit kiana stretch, and possibly groin stretch post manual therapy, trial of child's pose. POC: hip mobilizations, STM lumbar flexion bias strengthening, possibly hip extension with trunk leaning on counter
--- NOTE | 2023-12-18 12:08 | PT.OTN ---
Current Diagnoses Pain in right wrist (12/18/23) Pain in right hip (12/18/23) Low back pain, unspecified (12/18/23) Weakness (12/18/23) Physical Therapy Treatment Note PT-OP-A Visit Information Start: 11/15/23 07:28 Freq: Status: Active Protocol: Document 12/18/23 07:29 NM (Rec: 12/18/23 08:16 NM [id number]) Out-Patient Physical Therapy Visit Information Visit Information Visit Type Progress Note Visit Note 24 visits max Visit Start Time 07:31 Visit Stop Time 08:12 Visit Number 7 Evaluation Information Evaluation Date 11/15/23 PT-OP-B Current Condition Start: 11/15/23 07:28 Freq: Status: Active Protocol: Document 11/15/23 08:15 NM (Rec: 11/15/23 12:38 NM [id number]) Current Condition History of Current Condition Onset Date November 2020 Current Complaints mobility, ROM, pain, decreased activity History of Current Condition Pt presents with R hip, lumbar spine, and L wrist pain. Symptoms began in November 2020, she fell down stairs from their trailer landing on her back, she went to ED. She fracture coccyx at that time with no other fractures in fall but did not have any follows up. Currently no coccyx pain. 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 She reports that she is unable to get out of bed sometimes due to low back pain. Occasionally she sees chiropractor, but only has short term relief. She is unable to sit cross legged due to limited hip mobility. Pt has a referral to orthopedic surgeon for her hip on 12/13 and is waiting on her referral for her spine. MRI shows labral tear. She would prefer to treat both lumbar spine and hip until surgeons determine if she is a candidate for surgery. 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 Prior Treatments and Tests Fell 07/27 on L wrist Hx of broken arms, volar fall; doesn 't want to work on for PT MRI 10/28: Labral tear R hip Radiographs 10/28: L5-S1 disc degeneration, no pelvis bony abnormalities PT-OP-C Subjective Start: 11/15/23 07:28 Freq: Status: Active Protocol: Document 12/18/23 07:29 NM (Rec: 12/18/23 08:16 NM [id number]) OP-PT Subjective Patient Comments Patient Comments Pt reports that her back is feeling a lot better. She has not been using the K tape, but reports improvements. States that she has been doing the stretches, which are helpful. States that a heavy work day only brings pain but a lot less. Reports no change in her R hip since IE. She previously went to ortho for her back, that it's tight hip flexor and some arthritis. She has extra bone growth on her hip per ortho, wants her to have more PT; wanting her to have a injection, sees him again 03/05. PT-OP-D Balance Start: 11/15/23 07:28 Freq: Status: Active Protocol: Document 11/15/23 08:15 NM (Rec: 11/15/23 12:38 NM [id number]) Balance Tests Single Limb Standing Single Limb- Right 30 sec, no pain Single Limb- Left 30 sec, no pain Tandem Tandem Standing 15 seconds, no pain PT-OP-E Functional Tests Start: 11/15/23 07:28 Freq: Status: Active Protocol: Document 11/15/23 08:15 NM (Rec: 11/15/23 12:38 NM [id number]) Functional Tests Squat Test Score 5 Comments pain w ant hip; LLE shift, L trunk rotated up, pronates, knee valgus Other Forward Lumbar Flexion Test Name of Test measured finger tip to floor Score 0.5 Comment straight leg PT-OP-F Manual Assessment Start: 11/15/23 07:28 Freq: Status: Active Protocol: Document 11/15/23 08:15 NM (Rec: 11/15/23 12:38 NM [id number]) Manual Assessments Soft Tissue Assessment Soft Tissue Mobility Assessment Increased hip flexor tightness , increased tone in lumbar spine paraspinals Joint Mobility Assessment Joint Mobility Assessment Reproducible clicking of R anterior hip with testing. Decreased R hip rotation into ER/IR in supine and sitting, R >L. Tenderness along R L5, PSIS (R>L) with P-A springing of lumbar spine PT-OP-G Mobility & Gait Start: 11/15/23 07:28 Freq: Status: Active Protocol: Document 11/15/23 08:15 NM (Rec: 11/15/23 12:38 NM [id number]) OP Gait Assessment Gait Gait Assistance Required: Independent Distance (Feet) 150 Factors Limiting Gait Function Factors Limiting Gait Function Pain Comments Gait Comments pronation, antalgic PT-OP-H Neuro Start: 11/15/23 07:28 Freq: Status: Active Protocol: Document 11/15/23 08:15 NM (Rec: 11/15/23 12:38 NM [id number]) Sensation Evaluation Comments Summary Comments BLE intact to light touch sensation equally PT-OP-J Posture/Palpation/Skin Start: 11/15/23 07:28 Freq: Status: Active Protocol: Document 11/15/23 08:15 NM (Rec: 11/15/23 12:38 NM [id number]) Posture Evaluation Position Standing Head/C-Spine Posture Forward Head L-Spine Posture Increased Lordosis Pelvis Posture Anteriorly Tilted Weight Distribution Weight Shifted Left Hip Posture (L) Externally Rotated,(R) Externally Rotated Knee Posture (L) Genu Valgus,(R) Genu Valgus Patellar Posture (L) Superior,(R) Superior Ankle/Foot Posture (L) Pronated,(R) Pronated Palpation Assessment Location R hip Palpation Location groin, hip flexors, adductors Palpation Findings Soft Tissue Tightness, Tenderness Palpation Details Tenderness in R groin, anteriorly. Hip flexor tightness lumbar spine Palpation Location PSIS, SIJ, L1-L5, paraspinals, glutes Palpation Findings Soft Tissue Tightness, Tenderness Palpation Details Tenderness along R L5, PSIS (R >L). Increased tone and tightness along B paraspinals, R>L. No restrictions of gluteal area. No tenderness B SIJ PT-OP-K Range of Motion Start: 11/15/23 07:28 Freq: Status: Active Protocol: Document 11/15/23 08:15 NM (Rec: 11/15/23 12:38 NM [id number]) Lumbar Spine Range of Motion Lumbar Spine Active Percentage Flexion 100 Extension 10 Rotation Left 3 Rotation Right 3 Lateral Flexion Left 75 Lateral Flexion Right 50 ROM Limitations Soft Tissue Tightness,Pain Comments Moderate pain with extension, R side bend. Reports soft tissue tightness of B paraspinals with lateral flexion. Min pain with fwd trunk flexion, but able to reach floor with straight leg (pain initiated at 25% AROM) Hip Goniometric Range of Motion Hip Right Flexion w/Knee Flexed 105 Extension 10 Abduction 25 Internal Rotation 28 External Rotation 14 Left Flexion w/Knee Flexed 108 Extension 10 Abduction 25 Internal Rotation 35 External Rotation 25 Knee Goniometric Range of Motion Knee ROM Limitations Comments full AROM Ankle and Foot Goniometric Range of Motion Ankle and Foot ROM Limitations Comments Observable decrease ankle dorsiflexion, not formally measured due to time PT-OP-L Special Tests Start: 11/15/23 07:28 Freq: Status: Active Protocol: Document 11/15/23 08:15 NM (Rec: 11/15/23 12:38 NM [id number]) Special Tests Lumbar Spine Special Tests SIJ posterior gapping Test Results - SIJ thigh thrust Test Results - SIJ anterior gapping Test Results - Straight Leg Raise Test Results - Distraction Test Results + Khoury/Quadrant Test Results + Comments local L pain Hip Special Tests Anterior Labral Test Test Results + NATALIE Test Results + Comments anterior groin pain FADIR Test Results + Comments ant groin pain scour Test Results + PT-OP-M Strength Start: 11/15/23 07:28 Freq: Status: Active Protocol: Document 12/18/23 07:29 NM (Rec: 12/18/23 16:38 NM [id number]) Trunk Strength Trunk Manual Muscle Testing Flexion 3 Fair Extension 4 Good Rotation Left 4 Good Rotation Right 4 Good Lateral Flexion Left 4 Good Lateral Flexion Right 4 Good Comments No pain with resisted motion except resisted flexion 12/18/23: improved trunk flexion, able to maintain 10 seconds with arms across chest and scapula clearing table; 4 /5 w/o pain; currently able to perform 10 non-alternating bird dogs Hip Strength Hip Manual Muscle Testing Right Flexion (L2) 4 Good Extension (S1) 4 Good Abduction 4- Good- Adduction 4 Good External Rotation 4 Good Internal Rotation 4 Good Comments No pain with resisted testing 12/18/23: 4/5 for all including hip abduction/extension, no pain with resisted motion Left Flexion (L2) 4 Good Extension (S1) 4 Good Abduction 4 Good Adduction 4 Good External Rotation 4 Good Internal Rotation 4 Good Comments 12/18/23: 4/5 for all PT-OP-Q Treatments Start: 11/15/23 07:28 Freq: Status: Active Protocol: Document 12/18/23 07:29 NM (Rec: 12/18/23 08:16 NM [id number]) Therapeutic Exercises Prone Exercises Quadruped Prone Exercise Name trialed: bird dogs Side bilateral Resistance AROM but non-alternating Equipment Used pool noodle as cue for neutral spine Reps/Minutes 1x10 ea Comments pain free; cued level pelvis on L side child's pose Prone Exercise Name 1. rock backs IR quadruped, 2. quadruped ER rockback, 3. resisted IR Side bilateral Resistance lvl 1 for resisted IR Reps/Minutes 1. 1x10 with 2 hold ea, 2. 1x10 with 2 hold ea, 3. 2x10 Comments pain free Standing Exercises pallof press Standing Exercise Name trialed in PT Side bilateral Resistance lvl 2 orange tb Reps/Minutes 1x15 ea Comments pain free; cued core stabilization, upright posture side steps Standing Exercise Name trialed in PT Side bilateral Resistance lvl 3 tb around ankles> lvl 2 band Equipment Used hip hinge position Reps/Minutes 2x15 ft Comments pain free in hips/back with lvl 2 band hip airplane Standing Exercise Name trialed in PT for hip IR Side bilateral Resistance AROM Equipment Used 1 hand support for balance Reps/Minutes 1x12 Comments cued hip hinge, pain free squat Standing Exercise Name standard Side bilateral Resistance lvl 3 tb around thighs Equipment Used mirror for visual cues Reps/Minutes 1x15 Comments post hip airplane, pain free Other Exercises 1/2 kneel hip flexor stretch Side bilateral Equipment Used mat Reps/Minutes 2x60 Comments not as deep on LLE, pain free Self-Care/Home Management Treatment Education Patient Education Home Exercise Program Other Education HEP: bird dog, side steps PT-OP-T Assessment and Plan Start: 11/15/23 07:28 Freq: Status: Active Protocol: Document 12/18/23 07:29 NM (Rec: 12/18/23 08:16 NM [id number]) Physical Therapy Assessment Goals Five Impairment hip strength Impairment B hip strength 4/5 MMT for all except R hip abd 4-/5 MMT Half-Way Goal (LTG) Pt will increase B global hip strength to at least 4+/5 MMT in order to demonstrate improved hip strength for ADLs and activity 12/18/23: PROGRESSING- B hip abduction 4/5 MMT, all others 4/5 LTG Duration 10 weeks Four Impairment core stability Impairment 3/5 MMT for trunk flexion, 4/5 MMT for trunk extension Half-Way Goal (LTG) Pt will demonstrate improved core stability by performing at least 8 bird dogs without compensation 12/18/23: PROGRESSING-10 non- alternating bird dogs; cues for level pelvis LTG Duration 10 weeks Three Impairment HEP Impairment not performing HEP or daily exercise Short Term Goal (STG) Pt will report compliance with HEP at least 2-3x/wk in order to maximize progress made during PT and for carryover 12/18/23: performs daily STG Duration 5 weeks MET Promotions Assistant Goal (LTG) Pt will report compliance with HEP at least 3x/wk in order to demonstrate transition to independent exercise upon discharge from PT LTG Duration 10 weeks Two Impairment activity, function Impairment squat Short Term Goal (STG) Pt will perform at least 5 bilateral squats with equal weight bearing and without compensation in order to demonstrate improved activity tolerance and ability to perform ADLs. 12/18/23: post hip mobility, pain free but decreased depth STG Duration 5 weeks PROGRESSING Half-Way Goal (LTG) Pt will perform at least 10 bilateral squats with equal weight bearing and without compensation in order to demonstrate improved activity tolerance and ability to perform ADLs. LTG Duration 10 weeks One Impairment oswestry Impairment 14/50 Promotions Assistant Goal (LTG) Pt will decrease Oswestry score <14/50 in order to demonstrate improved activity tolerance and QOL 12/18/23: 9/50 LTG Duration 10 weeks MET Assessment Summary Assessment Pt tolerated session well, improved tolerance for hip mobility. Pt continues to demonstrate increased hip flexor tightness, trialed half kneel stretch over supine kiana stretch. Continued with increasing hip IR mobility. Initiated single leg hip airplanes, performed prior to squats. Pt pain free with squats a decreased depth with tactile cues for hip abduction , mirror to prevent hip rotation. Trialed bird dogs for core strength, able to perform non-alternating with cues only for stable pelvis and without low back pain. Pt progressing well toward goals but would benefit from further mobility and strengthening of R hip. Pt has been seen x6 visits since IE in November 2023 for low back and R hip pain. Pt reports improvement in low back pain symptoms; however, continues to have R hip pain related. Pt is progressing toward goals. She has met 1 LTG. Pt is making improvements in core and lumbar strength, in addition to B hip strength. Functionally, pt is able to perform squats with less pain with hip mobilization. Her oswestry score decreased from 14/50 to 9/50, indicating improvements in QOL and activity tolerance. Although she continues to have limitations in ability to perform ADLs/IADLs due to pain , it is more related to R hip than her low back now. Pt recently visited specialists for both her spine and hip, who recommend further PT at this time with possible hip injection in future. Pt would benefit from skilled PT to improve hip mobility, BLE and core strength in order to decrease pain symptoms and improve activity tolerance. Physical Therapy Plan Frequency and Duration Frequency of Treatment 2x/Week Duration of treatment (weeks) 10 Plan of Care Start Date 11/15/23 Plan of Care End Date 01/26/24 Therapeutic Interventions Therapeutic Interventions Balance Training,Coordination Training,Gait Training,Home Exercise Program,Joint Mobilizations,Manual Therapy, Neuromuscular Re-education, Orthotic/Prosthetic Management ,Patient/Caregiver Education, Self-Care/Home Management, Sensory Integration,Soft Tissue Mobilization,Taping, Therapeutic Activities, Therapeutic Exercises Modalities Biofeedback,Cold Pack/Ice Massage,Electric Stimulation, Hot Packs,Ultrasound, Vasopneumatic Devices Other Therapeutic Interventions Manual traction Next Visit Focus/Plan Next Note Type Treatment Note Next Visit Plan hip flex strength, pallof press, squat (post hip mobility), hip hinge and deadlift. Tape and manual REviewe HEP: supine resisted clamshell, DL heel slide, side clam/reverse clamshell. Next tx: revisit kiana stretch, and possibly groin stretch post manual therapy, trial of child's pose. POC: hip mobilizations, STM lumbar flexion bias strengthening, possibly hip extension with trunk leaning on counter
--- NOTE | 2023-12-25 16:30 | PT-OP ANOTE ---
Pt called today, left message cancelling tomorrow's appt, no reason given. Next appt 12/31
--- NOTE | 2024-04-15 15:45 | PT.OPDS ---
Current Diagnoses Pain in right wrist (12/18/23) Pain in right hip (12/18/23) Low back pain, unspecified (12/18/23) Weakness (12/18/23) Visit Care Team Role Provider Type Shirley Zaldivar MD Attending Provider Physician Family Provider Primary Care Provider Referring Provider Specialty: Family Practice Address: [address] [place] [address] [place], [address] Email: [email or web address] Visit Number Visit Number 7 Discharge Summary PT-OP-B Current Condition Start: 11/15/23 07:28 Freq: Status: Active Protocol: Document 11/15/23 08:15 NM (Rec: 11/15/23 12:38 NM [id number]) Current Condition History of Current Condition Onset Date November 2020 Current Complaints mobility, ROM, pain, decreased activity History of Current Condition Pt presents with R hip, lumbar spine, and L wrist pain. Symptoms began in November 2020, she fell down stairs from their trailer landing on her back, she went to ED. She fracture coccyx at that time with no other fractures in fall but did not have any follows up. Currently no coccyx pain. 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 She reports that she is unable to get out of bed sometimes due to low back pain. Occasionally she sees chiropractor, but only has short term relief. She is unable to sit cross legged due to limited hip mobility. Pt has a referral to orthopedic surgeon for her hip on 12/13 and is waiting on her referral for her spine. MRI shows labral tear. She would prefer to treat both lumbar spine and hip until surgeons determine if she is a candidate for surgery. 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 Prior Treatments and Tests Fell 07/27 on L wrist Hx of broken arms, volar fall; doesn 't want to work on for PT MRI 10/28: Labral tear R hip Radiographs 10/28: L5-S1 disc degeneration, no pelvis bony abnormalities PT-OP-C Subjective Start: 11/15/23 07:28 Freq: Status: Active Protocol: Document 12/18/23 07:29 NM (Rec: 12/18/23 08:16 NM [id number]) OP-PT Subjective Patient Comments Patient Comments Pt reports that her back is feeling a lot better. She has not been using the K tape, but reports improvements. States that she has been doing the stretches, which are helpful. States that a heavy work day only brings pain but a lot less. Reports no change in her R hip since IE. She previously went to ortho for her back, that it's tight hip flexor and some arthritis. She has extra bone growth on her hip per ortho, wants her to have more PT; wanting her to have a injection, sees him again 03/05. PT-OP-D Balance Start: 11/15/23 07:28 Freq: Status: Active Protocol: Document 11/15/23 08:15 NM (Rec: 11/15/23 12:38 NM [id number]) Balance Tests Single Limb Standing Single Limb- Right 30 sec, no pain Single Limb- Left 30 sec, no pain Tandem Tandem Standing 15 seconds, no pain PT-OP-E Functional Tests Start: 11/15/23 07:28 Freq: Status: Active Protocol: Document 11/15/23 08:15 NM (Rec: 11/15/23 12:38 NM [id number]) Functional Tests Squat Test Score 5 Comments pain w ant hip; LLE shift, L trunk rotated up, pronates, knee valgus Other Forward Lumbar Flexion Test Name of Test measured finger tip to floor Score 0.5 Comment straight leg PT-OP-F Manual Assessment Start: 11/15/23 07:28 Freq: Status: Active Protocol: Document 11/15/23 08:15 NM (Rec: 11/15/23 12:38 NM [id number]) Manual Assessments Soft Tissue Assessment Soft Tissue Mobility Assessment Increased hip flexor tightness , increased tone in lumbar spine paraspinals Joint Mobility Assessment Joint Mobility Assessment Reproducible clicking of R anterior hip with testing. Decreased R hip rotation into ER/IR in supine and sitting, R >L. Tenderness along R L5, PSIS (R>L) with P-A springing of lumbar spine PT-OP-G Mobility & Gait Start: 11/15/23 07:28 Freq: Status: Active Protocol: Document 11/15/23 08:15 NM (Rec: 11/15/23 12:38 NM [id number]) OP Gait Assessment Gait Gait Assistance Required: Independent Distance (Feet) 150 Factors Limiting Gait Function Factors Limiting Gait Function Pain Comments Gait Comments pronation, antalgic PT-OP-H Neuro Start: 11/15/23 07:28 Freq: Status: Active Protocol: Document 11/15/23 08:15 NM (Rec: 11/15/23 12:38 NM [id number]) Sensation Evaluation Comments Summary Comments BLE intact to light touch sensation equally PT-OP-J Posture/Palpation/Skin Start: 11/15/23 07:28 Freq: Status: Active Protocol: Document 11/15/23 08:15 NM (Rec: 11/15/23 12:38 NM [id number]) Posture Evaluation Position Standing Head/C-Spine Posture Forward Head L-Spine Posture Increased Lordosis Pelvis Posture Anteriorly Tilted Weight Distribution Weight Shifted Left Hip Posture (L) Externally Rotated,(R) Externally Rotated Knee Posture (L) Genu Valgus,(R) Genu Valgus Patellar Posture (L) Superior,(R) Superior Ankle/Foot Posture (L) Pronated,(R) Pronated Palpation Assessment Location R hip Palpation Location groin, hip flexors, adductors Palpation Findings Soft Tissue Tightness, Tenderness Palpation Details Tenderness in R groin, anteriorly. Hip flexor tightness lumbar spine Palpation Location PSIS, SIJ, L1-L5, paraspinals, glutes Palpation Findings Soft Tissue Tightness, Tenderness Palpation Details Tenderness along R L5, PSIS (R >L). Increased tone and tightness along B paraspinals, R>L. No restrictions of gluteal area. No tenderness B SIJ PT-OP-K Range of Motion Start: 11/15/23 07:28 Freq: Status: Active Protocol: Document 11/15/23 08:15 NM (Rec: 11/15/23 12:38 NM [id number]) Lumbar Spine Range of Motion Lumbar Spine Active Percentage Flexion 100 Extension 10 Rotation Left 3 Rotation Right 3 Lateral Flexion Left 75 Lateral Flexion Right 50 ROM Limitations Soft Tissue Tightness,Pain Comments Moderate pain with extension, R side bend. Reports soft tissue tightness of B paraspinals with lateral flexion. Min pain with fwd trunk flexion, but able to reach floor with straight leg (pain initiated at 25% AROM) Hip Goniometric Range of Motion Hip Right Flexion w/Knee Flexed 105 Extension 10 Abduction 25 Internal Rotation 28 External Rotation 14 Left Flexion w/Knee Flexed 108 Extension 10 Abduction 25 Internal Rotation 35 External Rotation 25 Knee Goniometric Range of Motion Knee ROM Limitations Comments full AROM Ankle and Foot Goniometric Range of Motion Ankle and Foot ROM Limitations Comments Observable decrease ankle dorsiflexion, not formally measured due to time PT-OP-L Special Tests Start: 11/15/23 07:28 Freq: Status: Active Protocol: Document 11/15/23 08:15 NM (Rec: 11/15/23 12:38 NM [id number]) Special Tests Lumbar Spine Special Tests SIJ posterior gapping Test Results - SIJ thigh thrust Test Results - SIJ anterior gapping Test Results - Straight Leg Raise Test Results - Distraction Test Results + Khoury/Quadrant Test Results + Comments local L pain Hip Special Tests Anterior Labral Test Test Results + NATALIE Test Results + Comments anterior groin pain FADIR Test Results + Comments ant groin pain scour Test Results + PT-OP-M Strength Start: 11/15/23 07:28 Freq: Status: Active Protocol: Document 12/18/23 07:29 NM (Rec: 12/18/23 16:38 NM [id number]) Trunk Strength Trunk Manual Muscle Testing Flexion 3 Fair Extension 4 Good Rotation Left 4 Good Rotation Right 4 Good Lateral Flexion Left 4 Good Lateral Flexion Right 4 Good Comments No pain with resisted motion except resisted flexion 12/18/23: improved trunk flexion, able to maintain 10 seconds with arms across chest and scapula clearing table; 4 /5 w/o pain; currently able to perform 10 non-alternating bird dogs Hip Strength Hip Manual Muscle Testing Right Flexion (L2) 4 Good Extension (S1) 4 Good Abduction 4- Good- Adduction 4 Good External Rotation 4 Good Internal Rotation 4 Good Comments No pain with resisted testing 12/18/23: 4/5 for all including hip abduction/extension, no pain with resisted motion Left Flexion (L2) 4 Good Extension (S1) 4 Good Abduction 4 Good Adduction 4 Good External Rotation 4 Good Internal Rotation 4 Good Comments 12/18/23: 4/5 for all PT-OP-T Assessment and Plan Start: 11/15/23 07:28 Freq: Status: Active Protocol: Document 02/06/24 08:47 NM (Rec: 02/06/24 08:50 NM [id number]) Physical Therapy Assessment Goals Five Impairment hip strength Impairment B hip strength 4/5 MMT for all except R hip abd 4-/5 MMT Group Home Goal (LTG) Pt will increase B global hip strength to at least 4+/5 MMT in order to demonstrate improved hip strength for ADLs and activity 12/18/23: PROGRESSING- B hip abduction 4/5 MMT, all others 4/5 LTG Duration 10 weeks Four Impairment core stability Impairment 3/5 MMT for trunk flexion, 4/5 MMT for trunk extension On Air Personality Goal (LTG) Pt will demonstrate improved core stability by performing at least 8 bird dogs without compensation 12/18/23: PROGRESSING-10 non- alternating bird dogs; cues for level pelvis LTG Duration 10 weeks Three Impairment HEP Impairment not performing HEP or daily exercise Short Term Goal (STG) Pt will report compliance with HEP at least 2-3x/wk in order to maximize progress made during PT and for carryover 12/18/23: performs daily STG Duration 5 weeks MET On Air Personality Goal (LTG) Pt will report compliance with HEP at least 3x/wk in order to demonstrate transition to independent exercise upon discharge from PT LTG Duration 10 weeks Two Impairment activity, function Impairment squat Short Term Goal (STG) Pt will perform at least 5 bilateral squats with equal weight bearing and without compensation in order to demonstrate improved activity tolerance and ability to perform ADLs. 12/18/23: post hip mobility, pain free but decreased depth STG Duration 5 weeks PROGRESSING On Air Personality Goal (LTG) Pt will perform at least 10 bilateral squats with equal weight bearing and without compensation in order to demonstrate improved activity tolerance and ability to perform ADLs. LTG Duration 10 weeks One Impairment oswestry Impairment 14/50 Group Home Goal (LTG) Pt will decrease Oswestry score <14/50 in order to demonstrate improved activity tolerance and QOL 12/18/23: 9/50 LTG Duration 10 weeks MET Assessment Summary Assessment Pt was evaluated on for back and hip pain. She attended x4 visits after evaluation. Pt had limited visits due to work and insurance benefits; she also canceled 7 PT visits including last appointment scheduled. Pt was slowly progressing toward goals but limited by pain in both hip and back. She had several appointments for potential surgery on both hip and back, but did not have any dates at the time of plan of care ended . Pt will be returning for PT in future s/p L hip arthroscopy. She will need new referral in order to return to PT s/p surgical repair. Physical Therapy Plan Discharge Physical Therapy Discharge Reasons Change in Medical Status Discharge Comments Pt canceled remaining appointments following 12/17 visit. She is planning to have L hip surgery in future and will return to PT with new referral. Next Visit Focus/Plan Next Visit Plan discharge from PT
== END 2024-04-18 08:42 | disposition home or self-care (01) ==
LOC: PHYS 07:30
PROVIDERS: Family Provider Family Medicine; PCP Family Medicine; Referring Provider Family Medicine; Visit Provider Family Medicine
DX: M25.551 Pain in right hip (principal); M54.50 Low back pain, unspecified; M25.531 Pain in right wrist; R53.1 Weakness
CPT/HCPCS: 97110; 97140; 97162

== ENCOUNTER → 2024-03-04 15:29 | Outpatient (CLI) | payer OTHER, MEDICAID, SELFPAY ==
--- NOTE | 2024-03-04 15:30 | DI.US.S_ITS ---
PROCEDURE: US PERIPH VENOUS LOW EXTREM RT INDICATIONS: Right calf tenderness/pain Hip surgery 02/21 TECHNIQUE: Real-time imaging, as well as color and pulse Doppler interrogation, were performed of the lower extremity deep veins from the inguinal ligament to the popliteal fossa, with documentation of the visualized calf veins. COMPARISON: None. FINDINGS: The common femoral, femoral, popliteal, and the visualized calf veins are normally compressible, and free of intraluminal thrombus. Color and pulse Doppler demonstrate normal phasic intraluminal flow. There is normal augmentation response to distal compression maneuver. IMPRESSION: No findings of lower extremity deep venous thrombosis. Dictated by: Juana Noel M.D. on 03/04/2024 at 16:50 Approved by: Juana Noel M.D. on 03/04/2024 at 16:50
== END ==
LOC: US 15:30
PROVIDERS: Family Provider Family Medicine; PCP Family Medicine; Referring Provider Student in an Organized Health Care Education/Training Program; Visit Provider Student in an Organized Health Care Education/Training Program
DX: M79.661 Pain in right lower leg (principal)
CPT/HCPCS: 93971

== ENCOUNTER 2024-04-29 07:30 | Outpatient (RCR) | payer OTHER, MEDICAID, SELFPAY ==
--- NOTE | 2024-04-16 16:05 | PT.OIE ---
Current Diagnoses Stiffness of right hip, not elsewhere classified (04/16/24) Other lack of coordination (04/16/24) Weakness (04/16/24) Other sprain of right hip, subsequent encounter (04/16/24) Other specified postprocedural states (04/16/24) Past Medical History (Last Reviewed 03/04/24 @ 12:15 by Shirley Patricio PA-C) No significant medical problems Visit Care Team Role Provider Type Shirley Zaldivar MD Family Provider Physician Primary Care Provider Specialty: Family Practice Address: [address] [place] [address], [place], [address] Email: [email or web address] Sebastian Preston MD Attending Provider Non-Staff Referring Provider Specialty: Orthopedic Surgery Address: [address] [place] [address], [id number] Email: Physical Therapy Initial Evaluation PT-OP-A Visit Information Start: 04/16/24 07:28 Freq: Status: Active Protocol: Document 04/16/24 08:16 NM (Rec: 04/16/24 09:08 NM [id number]) Out-Patient Physical Therapy Visit Information Visit Information Visit Type Initial Evaluation Visit Note 19 visits remaining Visit Start Time 08:16 Visit Stop Time 09:00 Visit Number 1 Evaluation Information Evaluation Date 04/16/24 Precautions Precautions s/p R hip arthroscopy and labral repair DOS 02/26/24- refer to protocol for precautions no SLR until week 3, limit impact activities until 7 weeks, avoid recumbent bike, gradual introduction to pivoting and rotation, pay particular attention to PROM/ AROM IR No impact activity until 7 weeks, Return to full activtiies week 8-12 as tolerated, full and unrestricted activities at 12- 16 weeks PT-OP-B Current Condition Start: 04/16/24 07:28 Freq: Status: Active Protocol: Document 04/16/24 08:16 NM (Rec: 04/16/24 09:08 NM [id number]) Current Condition History of Current Condition Onset Date DOS 02/26/24 Current Complaints mobility, strength History of Current Condition Pt presents s/p R hip arthroscopy on 02/26/24. She reports that 2 days after surgery she had a knot in her R calf, states a muscle spasm but was assessed for DVT . No other complications post- op. She has had [address] Preston, most recently last week. 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 She states that Dr. Preston said she can do whatever she wants but to stop if it hurts at last appt . 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 Currently 7 weeks post op. Wants to move back into running (~6 mi run a few times /wk but several years ago). She reports that she also wants to be strong for snowboard season, yoga. She will be going on vacation to [place] [place], planning to ride on water [employer] [place] [email or web address]. Recently feels like she is stronger, worked an 8 hour day this past week. Has impairments still with initial hip flexion with slight ER. Stairs are normal again for last 2 weeks with reciprocal pattern. 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) Functional Limitations- Work/School work requirements: bending to clean, floor transfer Functional Limitations- Recreation/ swimming (small kicks) Hobbies PT-OP-C Subjective Start: 04/16/24 07:28 Freq: Status: Active Protocol: Document 04/16/24 08:16 NM (Rec: 04/16/24 09:08 NM [id number]) OP-PT Subjective Patient Comments Patient Comments pt consents to participate in evaluation OP-PT Pain Assessment Location R hip Pain Location Details lateral hip (incisions ant, lateral) Intensity 2 Scale Used Numeric (0 - 10) Description Aching,Dull Description- Other bruised, worst: 6/10 Frequency Occasional Radiating Location numbness to lateral hip Pain Aggravating Factors Position,ADL's,Activity, Exercise,Standing,Walking, Stair Climbing,Bending Other Pain Aggravating Factors very sensitive to thigh Pain Alleviating Factors Cold,Sitting,Rest Other Pain Alleviating Factors no longer taking medication PT-OP-F Manual Assessment Start: 04/16/24 07:28 Freq: Status: Active Protocol: Document 04/16/24 08:16 NM (Rec: 04/16/24 10:24 NM [id number]) Manual Assessments Soft Tissue Assessment Soft Tissue Mobility Assessment Mild tightness in R hip flexors, quad Joint Mobility Assessment Joint Mobility Assessment Mild discomfort with end range passive hip flexion, no tenderness of pain with passive hip abduction/ER/IR at <90 deg flex, no discomfort or pain with active end range flexion PT-OP-G Mobility & Gait Start: 04/16/24 07:28 Freq: Status: Active Protocol: Document 04/16/24 08:16 NM (Rec: 04/16/24 10:24 NM [id number]) OP Gait Assessment Gait Gait Assistance Required: Independent Distance (Feet) 200 Assistive Devices Assistive Device None Gait Deviations General Gait Pattern Within Normal Limits Comments Gait Comments Non-antalgic but demos B glute medius weakness, slight R foot ER. Not using an AD, full WB without limitation Stair Climbing Evaluation Evaluation Level of Assist On Stairs Independent Devices Stair Climbing Assistive Devices None Technique/Endurance Stair Climbing Direction Ascend and Descend Stair Climbing Technique Step Over Step Number of Steps Climbed 4 Stair Climbing Set # Repetitions (reps) 1 Comments Stair Climbing Comments Pain free, neutral foot rotation and placement PT-OP-H Neuro Start: 04/16/24 16:04 Freq: Status: Active Protocol: Document 04/16/24 08:16 NM (Rec: 04/16/24 16:05 NM [id number]) Sensation Evaluation Comments Summary Comments BLE intact to light touch sensation but with less sensitivity on R lateral thigh than on L lateral thigh PT-OP-J Posture/Palpation/Skin Start: 04/16/24 07:28 Freq: Status: Active Protocol: Document 04/16/24 08:16 NM (Rec: 04/16/24 09:08 NM [id number]) Posture Evaluation Position Standing Head/C-Spine Posture Forward Head Pelvis Posture Anteriorly Tilted Weight Distribution Weight Shifted Left Hip Posture (L) Neutral,(R) Externally Rotated Knee Posture (L) Genu Valgus,(R) Genu Valgus Palpation Assessment Location R hip Palpation Details tenderness to lateral hip over incision no tenderness along anterior hip upon palpation or anterior incision tightness over hip flexors, quad Skin Assessment Other Assessments Skin Assessment Comments Incisions intact without sign of infection, tenderness over incision lateral hip. No evidence of swelling compared to LLE PT-OP-K Range of Motion Start: 04/16/24 07:28 Freq: Status: Active Protocol: Document 04/16/24 08:16 NM (Rec: 04/16/24 09:08 NM [id number]) Hip Goniometric Range of Motion Hip PROM Flexion w/Knee Flexed 90 Comments limited by mild pain at joint Right Flexion w/Knee Flexed 110 Abduction 20 Internal Rotation 25 External Rotation 30 Comments no pain with AROM, rotation tested in sitting Left Flexion w/Knee Flexed 112 Abduction 25 Internal Rotation 40 External Rotation 30 Comments rotation tested in sitting PT-OP-M Strength Start: 04/16/24 07:28 Freq: Status: Active Protocol: Document 04/16/24 08:16 NM (Rec: 04/16/24 09:08 NM [id number]) Hip Strength Hip Manual Muscle Testing Right Flexion (L2) 3+ Fair+ Extension (S1) 3+ Fair+ Abduction 3+ Fair+ Adduction 4- Good- External Rotation 3+ Fair+ Internal Rotation 3+ Fair+ Comments no pain with resisted motion but limited Left Flexion (L2) 4+ Good+ Extension (S1) 4+ Good+ Abduction 4+ Good+ Adduction 4+ Good+ External Rotation 4+ Good+ Internal Rotation 4+ Good+ Knee Strength Knee Manual Muscle Testing Right Flexion (S2) 4+ Good+ Extension (L3) 4+ Good+ Left Flexion (S2) 4+ Good+ Extension (L3) 4+ Good+ Ankle/Foot Strength Ankle and Foot Manual Muscle Testing Right Dorsiflexion (L4) 4+ Good+ Plantarflexion (S1) 4+ Good+ Comments tested in sitting Left Dorsiflexion (L4) 4+ Good+ Plantarflexion (S1) 4+ Good+ Comments tested in sitting PT-OP-Q Treatments Start: 04/16/24 07:28 Freq: Status: Active Protocol: Document 04/16/24 08:16 NM (Rec: 04/16/24 10:24 NM [id number]) Therapeutic Exercises Supine Exercises TrA activation Supine Exercise Name small supine march- alternating Side bilateral Equipment Used hip flex <90 deg; educated to d/c if hip pain Reps/Minutes 10 ea Comments cued TrA with self tactile cue ; feels in lower core Sitting Exercises LAQ Side right Resistance level 1 band Reps/Minutes 10 with 3 hold Comments pain free; educated to maintain hip supported, knee equal w/ hip hip abduction Side bilateral Resistance level 1 band at thigh Equipment Used educated to only perform Reps/Minutes 10 with 1 hold Comments pain free, educated for abd vs hip ER to avoid repetitive rot Standing Exercises squat Standing Exercise Name closed chain wall squat Side bilateral Resistance AROM, < hip 90 deg Equipment Used edu to perform to pt tolerance with ROM, d/c if pain occurs Reps/Minutes 10 Comments pain free Self-Care/Home Management Treatment Education Patient Education Joint Protection,Pain Management Other Education Educated to current precautions 7 weeks post-op: no repetitive hip rotation, AROM to tolerance and not to push into pain, educated to limit positions that stress repair (end range hip flex especially with IR), recommended no impact activity yet until trialed in PT. Due to upcoming pt vacation, recommended frequent breaks to avoid sitting in position where pt's knees above hips for extended period of time, educated to be aware of positioning on water slides and roller coasters to avoid positions where RLE could get caught (pt reports ok with participation as long as pain free) PT-OP-T Assessment and Plan Start: 04/16/24 07:28 Freq: Status: Active Protocol: Document 04/16/24 08:16 NM (Rec: 04/16/24 10:24 NM [id number]) Physical Therapy Assessment Rehab Potential Rehabilitation Potential Excellent Evaluation Complexity Number of Personal Factors/Comorbidities 1-2 Number of Body Systems Impaired 1-2 Clinical Presentation at Evaluation Stable Impairments Impairments Activity Tolerance,Balance, Functional Activities, Functional Mobility,Gait, Integument,Pain,Posture,ROM, Sensation,Soft Tissue Mobility ,Strength,Transfers Other Concerns Barriers to Rehabilitation 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 STG Duration 6 weeks Fdc Goal (LTG) If appropriate, pt will report that she is able to jog for at least 1-2 miles without pain for R hip. LTG Duration 12 weeks Four Impairment pt needs to be able to perform floor transfers for job, currently unable Short Term Goal (STG) Pt will be able to transfer to /from floor with RLE leading for at least 5/10 reps with or without hand support and no increase in R hip baseline pain in order to be able to perform her job with fewer limitations STG Duration 6 weeks Processing Assistant Goal (LTG) Pt will be able to transfer to /from floor with RLE leading while carrying an object for at least 7/10 reps with or without hand support and no increase in R hip baseline pain in order to be able to perform her job with fewer limitations LTG Duration 12 weeks Three Impairment ROM Short Term Goal (STG) Pt will report that 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 is 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 with R hip pain <2/10 during at least 75% attempts in order to demonstrate improved hip ROM and strength STG Duration 4 weeks Processing Assistant Goal (LTG) Pt will report that she is able to don/doff socks, shoes, and LE clothing without limitation or pain in order to demonstrate improved R hip ROM for improved QOL LTG Duration 12 weeks Two Impairment strength Short Term Goal (STG) Pt will improve R hip global strength to at least 4+/5 MMT in order to demonstrate improved strength for ambulation, running, and work requirements STG Duration 8 weeks Processing Assistant Goal (LTG) Pt will improve R hip global strength to at least 5/5 MMT in order to demonstrate improved strength for ambulation, running, and work requirements LTG Duration 12 weeks One Impairment work Short Term Goal (STG) Pt will report that she is able to work at least 8 hours without increase in R hip baseline pain in order to demonstrate improved QOL and symptom management STG Duration 6 weeks Processing Assistant Goal (LTG) Pt will report that she is able to perform 100% of her job requirements without limitation or increase in R hip pain in order to demonstrate improved QOL LTG Duration 12 weeks Assessment Summary Assessment Pt is a 38 y.o. female presenting s/p R hip arthoplasty and labral repair on 02/26/24. Pt is currently 7 weeks post-op and is managing pain well within last several weeks. She is currently WBAT and not using an AD. Pt has returned to work at her cleaning business. Currently, pt has impairments in ROM, strength, balance, ADLs/IADLs, dressing/grooming, and activity tolerance. She currently has mild limitations in R hip ROM, especially into hip flexion. Pt's R hip strength is also limited, but she does not have pain with resisted motions. Pt does not have pain with ambulation but does demonstrate small gait deviations indicating hip weakness. Pt would benefit from skilled PT for R hip mobility and strengthening in addition to balance and body mechanics training in order to return to work without limitations and running, if appropriate. Physical Therapy Plan Frequency and Duration Frequency of Treatment 1-2x/wk Duration of treatment (weeks) 12 Plan of Care Start Date 04/16/24 Plan of Care End Date 07/12/24 Therapeutic Interventions Therapeutic Interventions Balance Training,Gait Training ,Home Exercise Program,Joint Mobilizations,Manual Therapy, Neuromuscular Re-education, Orthotic/Prosthetic Management ,Patient/Caregiver Education, Self-Care/Home Management, Sensory Integration,Soft Tissue Mobilization,Taping, Therapeutic Activities, Therapeutic Exercises Modalities Cold Pack/Ice Massage,Electric Stimulation,Hot Packs, Ultrasound Next Visit Focus/Plan Next Note Type Treatment Note Next Visit Plan hip AROM in quadruped joint mobilizations to R hip strength (wall squat vs leg press, regular squat), review HEP: supine or seated core on ball
--- NOTE | 2024-04-22 15:53 | PT.OTN ---
Current Diagnoses Stiffness of right hip, not elsewhere classified (04/22/24) Other lack of coordination (04/22/24) Weakness (04/22/24) Other sprain of right hip, subsequent encounter (04/22/24) Other specified postprocedural states (04/22/24) Physical Therapy Treatment Note PT-OP-A Visit Information Start: 04/16/24 07:28 Freq: Status: Active Protocol: Document 04/22/24 07:31 NM (Rec: 04/22/24 08:17 NM [id number]) Out-Patient Physical Therapy Visit Information Visit Information Visit Type Treatment Note Visit Note 19 visits remaining Visit Start Time 07:32 Visit Stop Time 08:12 Visit Number 2 Evaluation Information Evaluation Date 04/16/24 Precautions Precautions s/p R hip arthroscopy and labral repair DOS 02/26/24- refer to protocol for precautions no SLR until week 3, limit impact activities until 7 weeks, avoid recumbent bike, gradual introduction to pivoting and rotation, pay particular attention to PROM/ AROM IR No impact activity until 7 weeks, Return to full activtiies week 8-12 as tolerated, full and unrestricted activities at 12- 16 weeks PT-OP-B Current Condition Start: 04/16/24 07:28 Freq: Status: Active Protocol: Document 04/16/24 08:16 NM (Rec: 04/16/24 09:08 NM [id number]) Current Condition History of Current Condition Onset Date DOS 02/26/24 Current Complaints mobility, strength History of Current Condition Pt presents s/p R hip arthroscopy on 02/26/24. She reports that 2 days after surgery she had a knot in her R calf, states a muscle spasm but was assessed for DVT . No other complications post- op. She has had [address] Preston, most recently last week. 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 She states that Dr. Preston said she can do whatever she wants but to stop if it hurts at last appt . 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 Currently 7 weeks post op. Wants to move back into running (~6 mi run a few times /wk but several years ago). She reports that she also wants to be strong for snowboard season, yoga. She will be going on vacation to [place], planning to ride on water [employer] and roller coasters. Recently feels like she is stronger, worked an 8 hour day this past week. Has impairments still with initial hip flexion with slight ER. Stairs are normal again for last 2 weeks with reciprocal pattern. 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 Her leg slid a little and pt heard a pop. She reports no sharp pain at the time, just a pop. States no difficulty with ambulating afterward. She also states that yesterday she was stepping over a chair when her leg got caught in the chair and her had to pull her out. Pt reports periodic shooting of sharp pain, states achy otherwise. She walked 16 miles at the [employer] over the last two days. Tried her exercises over the past few days without any issues, states just feels week with wall squat. PT-OP-F Manual Assessment Start: 04/16/24 07:28 Freq: Status: Active Protocol: Document 04/16/24 08:16 NM (Rec: 04/16/24 10:24 NM [id number]) Manual Assessments Soft Tissue Assessment Soft Tissue Mobility Assessment Mild tightness in R hip flexors, quad Joint Mobility Assessment Joint Mobility Assessment Mild discomfort with end range passive hip flexion, no tenderness of pain with passive hip abduction/ER/IR at <90 deg flex, no discomfort or pain with active end range flexion PT-OP-G Mobility & Gait Start: 04/16/24 07:28 Freq: Status: Active Protocol: Document 04/16/24 08:16 NM (Rec: 04/16/24 10:24 NM [id number]) OP Gait Assessment Gait Gait Assistance Required: Independent Distance (Feet) 200 Assistive Devices Assistive Device None Gait Deviations General Gait Pattern Within Normal Limits Comments Gait Comments Non-antalgic but demos B glute medius weakness, slight R foot ER. Not using an AD, full WB without limitation Stair Climbing Evaluation Evaluation Level of Assist On Stairs Independent Devices Stair Climbing Assistive Devices None Technique/Endurance Stair Climbing Direction Ascend and Descend Stair Climbing Technique Step Over Step Number of Steps Climbed 4 Stair Climbing Set # Repetitions (reps) 1 Comments Stair Climbing Comments Pain free, neutral foot rotation and placement PT-OP-H Neuro Start: 04/16/24 16:04 Freq: Status: Active Protocol: Document 04/16/24 08:16 NM (Rec: 04/16/24 16:05 NM [id number]) Sensation Evaluation Comments Summary Comments BLE intact to light touch sensation but with less sensitivity on R lateral thigh than on L lateral thigh PT-OP-J Posture/Palpation/Skin Start: 04/16/24 07:28 Freq: Status: Active Protocol: Document 04/16/24 08:16 NM (Rec: 04/16/24 09:08 NM [id number]) Posture Evaluation Position Standing Head/C-Spine Posture Forward Head Pelvis Posture Anteriorly Tilted Weight Distribution Weight Shifted Left Hip Posture (L) Neutral,(R) Externally Rotated Knee Posture (L) Genu Valgus,(R) Genu Valgus Palpation Assessment Location R hip Palpation Details tenderness to lateral hip over incision no tenderness along anterior hip upon palpation or anterior incision tightness over hip flexors, quad Skin Assessment Other Assessments Skin Assessment Comments Incisions intact without sign of infection, tenderness over incision lateral hip. No evidence of swelling compared to LLE PT-OP-K Range of Motion Start: 04/16/24 07:28 Freq: Status: Active Protocol: Document 04/16/24 08:16 NM (Rec: 04/16/24 09:08 NM [id number]) Hip Goniometric Range of Motion Hip PROM Flexion w/Knee Flexed 90 Comments limited by mild pain at joint Right Flexion w/Knee Flexed 110 Abduction 20 Internal Rotation 25 External Rotation 30 Comments no pain with AROM, rotation tested in sitting Left Flexion w/Knee Flexed 112 Abduction 25 Internal Rotation 40 External Rotation 30 Comments rotation tested in sitting PT-OP-M Strength Start: 04/16/24 07:28 Freq: Status: Active Protocol: Document 04/16/24 08:16 NM (Rec: 04/16/24 09:08 NM [id number]) Hip Strength Hip Manual Muscle Testing Right Flexion (L2) 3+ Fair+ Extension (S1) 3+ Fair+ Abduction 3+ Fair+ Adduction 4- Good- External Rotation 3+ Fair+ Internal Rotation 3+ Fair+ Comments no pain with resisted motion but limited Left Flexion (L2) 4+ Good+ Extension (S1) 4+ Good+ Abduction 4+ Good+ Adduction 4+ Good+ External Rotation 4+ Good+ Internal Rotation 4+ Good+ Knee Strength Knee Manual Muscle Testing Right Flexion (S2) 4+ Good+ Extension (L3) 4+ Good+ Left Flexion (S2) 4+ Good+ Extension (L3) 4+ Good+ Ankle/Foot Strength Ankle and Foot Manual Muscle Testing Right Dorsiflexion (L4) 4+ Good+ Plantarflexion (S1) 4+ Good+ Comments tested in sitting Left Dorsiflexion (L4) 4+ Good+ Plantarflexion (S1) 4+ Good+ Comments tested in sitting PT-OP-Q Treatments Start: 04/16/24 07:28 Freq: Status: Active Protocol: Document 04/22/24 07:31 NM (Rec: 04/22/24 08:17 NM [id number]) Cardio Equipment Bicycle (Upright) Duration (Minutes) 5 Resistance 2 Seat Position 4 Other warm up for ROM; pain free Therapeutic Exercises Supine Exercises bridge Side bilateral Resistance AROM > level 2 band at thighs Reps/Minutes 10 Comments pain free, for ROM Prone Exercises hip IR Prone Exercise Name neutral position Side bilateral Resistance AROM > level 1 Reps/Minutes 2x10 Sitting Exercises LAQ Sitting Exercise Name HEP review Side right Resistance level 2 band Reps/Minutes 10x5 Comments pain free, knee equal with hip hip abduction Sitting Exercise Name HEP review (did not perform) Standing Exercises HSC Side bilateral Resistance level 2 band Equipment Used hand support on plinth Reps/Minutes 20 Comments pain free squat Standing Exercise Name closed chain wall squat- HEP review Side bilateral Resistance AROM > level 2 band at thighs, above hip 90 deg Equipment Used edu to perform to pt tolerance with ROM, d/c if pain occurs Reps/Minutes 2x10 Comments pain free Other Exercises quadruped Other Exercise Name 1. rocking for hip flex, 2. cat camel, 3. hip ext (heel slide) Side bilateral Reps/Minutes 1. 20, 2. 20, 3. 10 ea Comments pain free Manual Therapy Treatment Consent Patient gave verbal consent for manual Yes treatment Soft Tissue Mobilization R hip Body Location hip flexors, quad, lat Mobilization Type Rolling Intensity/Depth Superficial Body Position Supine Comments Monitored for pain, gentle rolling distal > proximal, avoiding incisions. No tenderness Joint Mobilizations R hip Direction post, inf Grade II Body Position Hooklying Reps/Duration 2x30 Comments For pain reduction and gentle mobility, monitored for pain PT-OP-T Assessment and Plan Start: 04/16/24 07:28 Freq: Status: Active Protocol: Document 04/22/24 07:31 NM (Rec: 04/22/24 08:17 NM [id number]) Physical Therapy Assessment Goals Five Impairment running Impairment B hip strength 4/5 MMT for all except R hip abd 4-/5 MMT Short Term Goal (STG) If appropriate, pt will trial jogging for at least 5 minutes without increase in baseline pain for R hip. STG Duration 6 weeks Group Home Goal (LTG) If appropriate, pt will report that she is able to jog for at least 1-2 miles without pain for R hip. LTG Duration 12 weeks Four Impairment pt needs to be able to perform floor transfers for job, currently unable Impairment 3/5 MMT for trunk flexion, 4/5 MMT for trunk extension Short Term Goal (STG) Pt will be able to transfer to /from floor with RLE leading for at least 5/10 reps with or without hand support and no increase in R hip baseline pain in order to be able to perform her job with fewer limitations STG Duration 6 weeks Snaker Goal (LTG) Pt will be able to transfer to /from floor with RLE leading while carrying an object for at least 7/10 reps with or without hand support and no increase in R hip baseline pain in order to be able to perform her job with fewer limitations LTG Duration 12 weeks Three Impairment ROM Impairment not performing HEP or daily exercise Short Term Goal (STG) 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 with 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 <2/10 during at least 75% attempts in order to demonstrate improved hip ROM and strength STG Duration 4 weeks Group Home Goal (LTG) Pt will report that she is able to don/doff socks, shoes, and LE clothing without limitation or pain in order to demonstrate improved R hip ROM for improved QOL LTG Duration 12 weeks Two Impairment strength Impairment squat Short Term Goal (STG) Pt will improve R hip global strength to at least 4+/5 MMT in order to demonstrate improved strength for ambulation, running, and work requirements STG Duration 8 weeks Group Home Goal (LTG) Pt will improve R hip global strength to at least 5/5 MMT in order to demonstrate improved strength for ambulation, running, and work requirements LTG Duration 12 weeks One Impairment work Impairment 14/50 Short Term Goal (STG) Pt will report that she is able to work at least 8 hours without increase in R hip baseline pain in order to demonstrate improved QOL and symptom management STG Duration 6 weeks Snaker Goal (LTG) Pt will report that she is able to perform 100% of her job requirements without limitation or increase in R hip pain in order to demonstrate improved QOL LTG Duration 12 weeks Assessment Summary Assessment Pt currently 8 weeks s/p R hip arthoplasty and labral repair . Pt tolerated session well without any instances of pain. Emphasis on R hip mobility and strength. Good feedback for grade II mobilizations and soft tissue mobilization. Pt able to progress to resistance for wall squat, prone IR, and LAQ. Trialed standing HSC, which pt able to perform well. PT recommended pt follow up with surgeon regarding pop sensation felt over weekend and to address pain, especially if persists. She would benefit from skilled PT for R hip mobility and strength in order to return to PLOF. Physical Therapy Plan Frequency and Duration Frequency of Treatment 1-2x/wk Duration of treatment (weeks) 12 Plan of Care Start Date 04/16/24 Plan of Care End Date 07/12/24 Therapeutic Interventions Therapeutic Interventions Balance Training,Gait Training ,Home Exercise Program,Joint Mobilizations,Manual Therapy, Neuromuscular Re-education, Orthotic/Prosthetic Management ,Patient/Caregiver Education, Self-Care/Home Management, Sensory Integration,Soft Tissue Mobilization,Taping, Therapeutic Activities, Therapeutic Exercises Modalities Cold Pack/Ice Massage,Electric Stimulation,Hot Packs, Ultrasound Next Visit Focus/Plan Next Note Type Treatment Note Next Visit Plan s/p R hip arthroplasty and labral repair (DOS 02/26/24)- refer to protocol for progression check if followed up with Dr Clarissa Preston Trial open chain squat to chair w/ band (above 90 deg hip flex), progress to leg press w/ low resistance; sidelying vs seated hip IR w/ band, stool ER/IR, upright bike, trial standing hip ext and abd; modified kiana stretch ton table, sidelying piriformis stretch, SLS, counter plank, neutral clam joint mobilizations to R hip ( see protocol for hooklying post and inf glide only)
--- NOTE | 2024-04-29 08:14 | PT.OTN ---
Current Diagnoses Stiffness of right hip, not elsewhere classified (04/29/24) Other lack of coordination (04/29/24) Weakness (04/29/24) Other sprain of right hip, subsequent encounter (04/29/24) Other specified postprocedural states (04/29/24) Physical Therapy Treatment Note PT-OP-A Visit Information Start: 04/16/24 07:28 Freq: Status: Active Protocol: Document 04/29/24 07:34 SP (Rec: 04/29/24 08:16 SP [id number]) Out-Patient Physical Therapy Visit Information Visit Information Visit Type Treatment Note Visit Note 19 visits remaining Visit Start Time 07:34 Visit Stop Time 08:14 Visit Number 3 Number of TIG WELDER Visits 1 Evaluation Information Evaluation Date 04/16/24 Precautions Precautions s/p R hip arthroscopy and labral repair DOS 02/26/24- refer to protocol for precautions no SLR until week 3, limit impact activities until 7 weeks, avoid recumbent bike, gradual introduction to pivoting and rotation, pay particular attention to PROM/ AROM IR No impact activity until 7 weeks, Return to full activtiies week 8-12 as tolerated, full and unrestricted activities at 12- 16 weeks PT-OP-B Current Condition Start: 04/16/24 07:28 Freq: Status: Active Protocol: Document 04/16/24 08:16 NM (Rec: 04/16/24 09:08 NM [id number]) Current Condition History of Current Condition Onset Date DOS 02/26/24 Current Complaints mobility, strength History of Current Condition Pt presents s/p R hip arthroscopy on 02/26/24. She reports that 2 days after surgery she had a knot in her R calf, states a muscle spasm but was assessed for DVT . No other complications post- op. She has had [address] Preston, most recently last week. 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 She states that Dr. Preston said she can do whatever she wants but to stop if it hurts at last appt . 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 Currently 7 weeks post op. Wants to move back into running (~6 mi run a few times /wk but several years ago). She reports that she also wants to be strong for snowboard season, yoga. She will be going on vacation to [place], planning to ride on water slides and roller coasters. Recently feels like she is stronger, worked an 8 hour day this past week. Has impairments still with initial hip flexion with slight ER. Stairs are normal again for last 2 weeks with reciprocal pattern. 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 Since last tx with pain post hip pop had xray and was told no break or strain noted. She experiences and dull ache and at times a pulse feeling to R adductor area but exercises feels ok but didn't do exercises this past week to see if improves and if causing discomfort assessment . 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 She had a fall on Wed misstepped curb with R foot, landed on R heel to buttocks but states feels ok though. Beginning of Jun ortho follow up for 3 mo follow up. PT-OP-F Manual Assessment Start: 04/16/24 07:28 Freq: Status: Active Protocol: Document 04/16/24 08:16 NM (Rec: 04/16/24 10:24 NM [id number]) Manual Assessments Soft Tissue Assessment Soft Tissue Mobility Assessment Mild tightness in R hip flexors, quad Joint Mobility Assessment Joint Mobility Assessment Mild discomfort with end range passive hip flexion, no tenderness of pain with passive hip abduction/ER/IR at <90 deg flex, no discomfort or pain with active end range flexion PT-OP-G Mobility & Gait Start: 04/16/24 07:28 Freq: Status: Active Protocol: Document 04/16/24 08:16 NM (Rec: 04/16/24 10:24 NM [id number]) OP Gait Assessment Gait Gait Assistance Required: Independent Distance (Feet) 200 Assistive Devices Assistive Device None Gait Deviations General Gait Pattern Within Normal Limits Comments Gait Comments Non-antalgic but demos B glute medius weakness, slight R foot ER. Not using an AD, full WB without limitation Stair Climbing Evaluation Evaluation Level of Assist On Stairs Independent Devices Stair Climbing Assistive Devices None Technique/Endurance Stair Climbing Direction Ascend and Descend Stair Climbing Technique Step Over Step Number of Steps Climbed 4 Stair Climbing Set # Repetitions (reps) 1 Comments Stair Climbing Comments Pain free, neutral foot rotation and placement PT-OP-H Neuro Start: 04/16/24 16:04 Freq: Status: Active Protocol: Document 04/16/24 08:16 NM (Rec: 04/16/24 16:05 NM [id number]) Sensation Evaluation Comments Summary Comments BLE intact to light touch sensation but with less sensitivity on R lateral thigh than on L lateral thigh PT-OP-J Posture/Palpation/Skin Start: 04/16/24 07:28 Freq: Status: Active Protocol: Document 04/16/24 08:16 NM (Rec: 04/16/24 09:08 NM [id number]) Posture Evaluation Position Standing Head/C-Spine Posture Forward Head Pelvis Posture Anteriorly Tilted Weight Distribution Weight Shifted Left Hip Posture (L) Neutral,(R) Externally Rotated Knee Posture (L) Genu Valgus,(R) Genu Valgus Palpation Assessment Location R hip Palpation Details tenderness to lateral hip over incision no tenderness along anterior hip upon palpation or anterior incision tightness over hip flexors, quad Skin Assessment Other Assessments Skin Assessment Comments Incisions intact without sign of infection, tenderness over incision lateral hip. No evidence of swelling compared to LLE PT-OP-K Range of Motion Start: 04/16/24 07:28 Freq: Status: Active Protocol: Document 04/16/24 08:16 NM (Rec: 04/16/24 09:08 NM [id number]) Hip Goniometric Range of Motion Hip PROM Flexion w/Knee Flexed 90 Comments limited by mild pain at joint Right Flexion w/Knee Flexed 110 Abduction 20 Internal Rotation 25 External Rotation 30 Comments no pain with AROM, rotation tested in sitting Left Flexion w/Knee Flexed 112 Abduction 25 Internal Rotation 40 External Rotation 30 Comments rotation tested in sitting PT-OP-M Strength Start: 04/16/24 07:28 Freq: Status: Active Protocol: Document 04/16/24 08:16 NM (Rec: 04/16/24 09:08 NM [id number]) Hip Strength Hip Manual Muscle Testing Right Flexion (L2) 3+ Fair+ Extension (S1) 3+ Fair+ Abduction 3+ Fair+ Adduction 4- Good- External Rotation 3+ Fair+ Internal Rotation 3+ Fair+ Comments no pain with resisted motion but limited Left Flexion (L2) 4+ Good+ Extension (S1) 4+ Good+ Abduction 4+ Good+ Adduction 4+ Good+ External Rotation 4+ Good+ Internal Rotation 4+ Good+ Knee Strength Knee Manual Muscle Testing Right Flexion (S2) 4+ Good+ Extension (L3) 4+ Good+ Left Flexion (S2) 4+ Good+ Extension (L3) 4+ Good+ Ankle/Foot Strength Ankle and Foot Manual Muscle Testing Right Dorsiflexion (L4) 4+ Good+ Plantarflexion (S1) 4+ Good+ Comments tested in sitting Left Dorsiflexion (L4) 4+ Good+ Plantarflexion (S1) 4+ Good+ Comments tested in sitting PT-OP-Q Treatments Start: 04/16/24 07:28 Freq: Status: Active Protocol: Document 04/29/24 07:34 SP (Rec: 04/29/24 08:16 SP [id number]) Therapeutic Exercises Supine Exercises bridge Side bilateral Resistance level 2 band at thighs Reps/Minutes 2x10 Comments pain free, for ROM TrA activation Supine Exercise Name small supine march- alternating Side bilateral Equipment Used hip flex <90 deg; educated to d/c if hip pain Reps/Minutes 10 ea Comments cued TrA with self tactile cue ; feels in lower core Prone Exercises hip IR Prone Exercise Name neutral position Side bilateral Resistance level 1 Equipment Used pillow under pelvis, ball between kness Reps/Minutes 2x10 Comments 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 Sitting Exercises hip IR, ER Sitting Exercise Name trialed in PT- added to HEP Side bilateral Resistance TB #2 at ankles Reps/Minutes x10 Comments good muscle tiring pfree hip abduction Sitting Exercise Name clamshell holds Side bilateral Resistance level 1>2 band at thigh Equipment Used ball between knees Reps/Minutes 10 with 1 hold Comments pnfree, good tiring Standing Exercises squat Standing Exercise Name eccentric chair taps Side bilateral Resistance level 2 band at thighs, above hip 90 deg Equipment Used edu to perform to pt tolerance with ROM, d/c if pain occurs Reps/Minutes 2x10 Comments pain free Other Exercises self STMs Other Exercise Name prone MWM prox RF ball under hip IR/ER Side right Reps/Minutes declined HO Comments good feedback self massage reduction tension Manual Therapy Treatment Consent Patient gave verbal consent for manual Yes treatment Soft Tissue Mobilization R hip Body Location hip prox medial RF, adductor Longus Mobilization Type Rolling,Sustained Pressure, Other Intensity/Depth Superficial Body Position Supine, R SL Comments strumming and MWM hip IR/ ER, then self ed use prone racquetball>tennis> lacrosse ball better- rid discomfort adductor tension. PT-OP-T Assessment and Plan Start: 04/16/24 07:28 Freq: Status: Active Protocol: Document 04/29/24 07:34 SP (Rec: 04/29/24 08:16 SP [id number]) Physical Therapy Assessment Goals Five Impairment running Impairment B hip strength 4/5 MMT for all except R hip abd 4-/5 MMT Short Term Goal (STG) If appropriate, pt will trial jogging for at least 5 minutes without increase in baseline pain for R hip. STG Duration 6 weeks Environmental Manager Goal (LTG) If appropriate, pt will report that she is able to jog for at least 1-2 miles without pain for R hip. LTG Duration 12 weeks Four Impairment pt needs to be able to perform floor transfers for job, currently unable Impairment 3/5 MMT for trunk flexion, 4/5 MMT for trunk extension Short Term Goal (STG) Pt will be able to transfer to /from floor with RLE leading for at least 5/10 reps with or without hand support and no increase in R hip baseline pain in order to be able to perform her job with fewer limitations STG Duration 6 weeks Environmental Manager Goal (LTG) Pt will be able to transfer to /from floor with RLE leading while carrying an object for at least 7/10 reps with or without hand support and no increase in R hip baseline pain in order to be able to perform her job with fewer limitations LTG Duration 12 weeks Three Impairment ROM Impairment not performing HEP or daily exercise Short Term Goal (STG) Pt will report that 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 with R hip pain <2/10 during at least 75% attempts in order to demonstrate improved hip ROM and strength STG Duration 4 weeks Jail Goal (LTG) Pt will report that she is able to don/doff socks, shoes, and LE clothing without limitation or pain in order to demonstrate improved R hip ROM for improved QOL LTG Duration 12 weeks Two Impairment strength Impairment squat Short Term Goal (STG) Pt will improve R hip global strength to at least 4+/5 MMT in order to demonstrate improved strength for ambulation, running, and work requirements STG Duration 8 weeks Jail Goal (LTG) Pt will improve R hip global strength to at least 5/5 MMT in order to demonstrate improved strength for ambulation, running, and work requirements LTG Duration 12 weeks One Impairment work Impairment 14/50 Short Term Goal (STG) Pt will report that she is able to work at least 8 hours without increase in R hip baseline pain in order to demonstrate improved QOL and symptom management STG Duration 6 weeks Environmental Manager Goal (LTG) Pt will report that she is able to perform 100% of her job requirements without limitation or increase in R hip pain in order to demonstrate improved QOL LTG Duration 12 weeks Assessment Summary Assessment Pt good feedback tension/ discomfort R proximal hip manual MWM and education on self application use of racquetball>tennis>lacrosse ball felt most effective for assist home tension reduction, went away post manual. Improved tolerance with muscular tiring druing al resisted ex. Use small ball between BLEs prone hip IR/ER to keep femurs midline and isolate femoral roll and lessen hip abd compensation recruitment. Physical Therapy Plan Frequency and Duration Frequency of Treatment 1-2x/wk Duration of treatment (weeks) 12 Plan of Care Start Date 04/16/24 Plan of Care End Date 07/12/24 Therapeutic Interventions Therapeutic Interventions Balance Training,Gait Training ,Home Exercise Program,Joint Mobilizations,Manual Therapy, Neuromuscular Re-education, Orthotic/Prosthetic Management ,Patient/Caregiver Education, Self-Care/Home Management, Sensory Integration,Soft Tissue Mobilization,Taping, Therapeutic Activities, Therapeutic Exercises Modalities Cold Pack/Ice Massage,Electric Stimulation,Hot Packs, Ultrasound Next Visit Focus/Plan Next Note Type Treatment Note Next Visit Plan Assess reponse to manual and use ball MWM tension reduction and resisted HEP last tx. POC: s/p R hip arthroplasty and labral repair (DOS 02/26/24 )- refer to protocol for progression check if followed up with Dr Clarissa Preston Trial open chain squat to chair w/ band (above 90 deg hip flex), progress to leg press w/ low resistance; sidelying vs seated hip IR w/ band, stool ER/IR, upright bike, trial standing hip ext and abd; modified kiana stretch ton table, sidelying piriformis stretch, SLS, counter plank, neutral clam joint mobilizations to R hip ( see protocol for hooklying post and inf glide only)
--- NOTE | 2024-06-04 07:41 | PT-OP ANOTE ---
Addendum entered and electronically signed by Kori Mishra, PT 06/04/24 07:55: NO SHOW Original Note: PT called and left message for pt at 0740 as pt did not attend this morning's appt but did not cancel. PT called to check in on pt since post op as pt has canceled last several appts. PT also called to offer several other appt times this week. Asked pt to call PT to check in
--- NOTE | 2024-07-01 15:59 | PT-OP ANOTE ---
PT called and left a message for pt as pt canceled last scheduled appt before plan of care ending and has not been seen in clinic since April. Pt did not respond to last PT message to follow up with pt about her hip. PT asked pt to please contact the clinic regarding if wants to discharge from PT since plan ending vs if planning to continue PT then must be seen before plan ending on 07/12; otherwise pt will be discharged from PT
--- NOTE | 2024-07-05 14:19 | PT-OP ANOTE ---
PT called and left message for surgeon at 1420 regarding pt's non-attendance at PT and ending plan of care date on 07/12. PT informed surgeon that pt has canceled or no-showed all appt except for 2 since evaluation, has not been seen since April. Pt has also not responded to any of PT attempts to contact pt. Pt and surgeon have both been informed that pt will be discharged on 07/12 if not seen by PT
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
== END 2024-07-22 10:35 | disposition home or self-care (01) ==
LOC: PHYS 07:30
PROVIDERS: Family Provider Family Medicine; PCP Family Medicine; Referring Provider Orthopaedic Surgery; Visit Provider Orthopaedic Surgery
DX: S73.191D Other sprain of right hip, subsequent encounter (principal); Z98.890 Other specified postprocedural states; R53.1 Weakness; R27.8 Other lack of coordination; M25.651 Stiffness of right hip, not elsewhere classified
CPT/HCPCS: 97110; 97140; 97161

== ENCOUNTER 2024-12-28 15:15 | Emergency (ER) | payer OTHER, MEDICAID, SELFPAY ==
[2024-12-28] VITALS (10 sets, daily range): BP systolic 104–130; BP diastolic 66–76; PULSE 73–82; RESP 17–26; TEMP 36.8; O2SAT 96–99; BMI 28.1
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
--- NOTE | 2024-12-28 15:34 | EKG_ITS ---
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
[2024-12-28 15:43] LABS: Add Manual Diff / Slide Review NO; Basophils Absolute Auto 100 /uL (0-100); Basophils Percent Auto 0.6 % (0-2); Eosinophils Absolute Auto 100 /uL (0-450); Eosinophils Percent Auto 1.5 % (2-4); Hematocrit 42.7 % (36-46); Hemoglobin 14.3 g/dL (12.0-16.0); Lymphocytes Absolute Auto 2800 /uL (1100-4500); Lymphocytes Percent Auto 35.9 % (25-40); Mean Corpuscular HGB Conc 33.5 % (30-36); Mean Corpuscular Volume 92.6 fL (80-100); Monocytes Absolute Auto 500 /uL (0-900); Monocytes Percent Auto 5.9 % (3-14); Neutrophils Absolute Auto 4400 /uL (1500-7000); Neutrophils Percent Auto 56.1 % (50-75); Platelet Count 299 X10^3/uL (150-400); Red Blood Cell Count 4.61 X10^6/uL (4.0-5.2); Red Cell Distribution Width 12.6 % (11.6-14.8); White Blood Cell Count 7.9 X10^3/uL (4.5-11.0)
[2024-12-28 15:52] LABS: Lactate (Lactic Acid) 1.5 mmol/L (0.7-2.1)
[2024-12-28 15:53] LABS: Alanine Aminotransferase 18 IU/L (<35); Albumin 4.2 g/dL (3.5-5.0); Albumin Globulin Ratio 1.3 (1.0-2.8); Alkaline Phosphatase 112 U/L (38-126); Aspartate Aminotransferase 30 IU/L (14-36); BUN Creatinine Ratio 18.2 (6-22); Bilirubin Total 0.5 mg/dL (0.2-1.3); Blood Urea Nitrogen 14 mg/dL (7-17); Calcium 9.2 mg/dL (8.4-10.2); Carbon Dioxide 24 mmol/L (22-32); Chloride 107 mmol/L (98-107); Estimated Glomerular Filt Rate > 60 mL/min (>60); Globulin 3.3 g/dL (1.7-4.1); Glucose 98 mg/dL (70-99); HEMOLYSIS < 15 (0-50); Potassium 3.8 mmol/L (3.4-5.1); Sodium 139 mmol/L (137-145); Total Protein 7.5 g/dL (6.3-8.2)
[2024-12-28 16:04] LABS: Pregnancy Test Serum,Qual Negative (Negative)
== END 2024-12-28 18:01 | disposition home or self-care (01) ==
PROVIDERS: Emergency Provider Emergency Medicine; Family Provider Family Medicine; PCP Family Medicine
DX: R06.02 Shortness of breath (principal); W16.42XA Fall into unspecified water causing other injury, initial encounter
CPT/HCPCS: 36415; 71275; 80053; 83605; 84703; 85025; 93005; 93010; 99283; 99284; Q9967

== ENCOUNTER → 2025-03-28 10:35 | Outpatient (CLI) | payer OTHER, SELFPAY ==
--- NOTE | 2025-03-28 10:36 | DI.RAD.S_ITS ---
PROCEDURE: XR HIP W PEL IF DONE RT 2V INDICATIONS: Right hip pain TECHNIQUE: AP pelvis with lateral view(s) of the right hip(s). COMPARISON: [facility], MR, MR HIP RT WO CON, 10/17/2023, 19:29. [facility], CR, XR PELVIS WITH LATERAL HIP RIGHT, 03/12/2024, 13:53. [facility], CR, XR PELVIS WITH LATERAL HIP RIGHT, 04/24/2024, 15:26. FINDINGS: Bones: No fractures or dislocations. Pelvic ring appears intact. No suspicious bony lesions. Soft tissues: The visualized bowel gas pattern is normal. No suspicious soft tissue calcifications. Pelvic phleboliths are incidentally noted. IMPRESSION: No significant plain film abnormality is seen. Dictated by: Jun Ochoa M.D. on 03/28/2025 at 10:07 Approved by: Jun Ochoa M.D. on 03/28/2025 at 10:08
== END ==
PROVIDERS: Family Provider Family Medicine; PCP Family Medicine; Referring Provider Registered Nurse; Visit Provider Registered Nurse
DX: M25.551 Pain in right hip (principal)
CPT/HCPCS: 73502

== ENCOUNTER → 2025-06-12 17:12 | Outpatient (ROUT) | payer OTHER, SELFPAY ==
[2025-06-12 17:56] LABS: Influenza A - CEPHEID Flu A NEGATIVE (NEGATIVE); Influenza B - CEPHEID Flu B NEGATIVE (NEGATIVE)
[2025-06-12 17:57] LABS: COVID-19 CEPHEID 4-PLEX PCR POSITIVE (Negative)
== END ==
PROVIDERS: Family Provider Family Medicine; PCP Family Medicine; Visit Provider Family Medicine
DX: R05.1 Acute cough (principal); R50.9 Fever, unspecified
CPT/HCPCS: 87637